=== PATIENT | female | born 1935 | race Hispanic/Latino ===

== ENCOUNTER 2017-10-06 11:08 | Inpatient (IN) | payer MEDICARE, OTHER ==
[2017-10-06 11:11] VITALS: BMI 15.0
[2017-10-06] MEDS ORDERED: Sodium Chloride 0.9% 1,000 ML IV STA ×2 (11:28→11:33)
--- NOTE | 2017-10-06 11:38 | ED PDOC ---
Arrival/HPI - General Chief Complaint: Trauma Time Seen by Provider: 10/06/17 11:13 Historian: Patient - History of Present Illness Narrative History of Present Illness (Text): 10/06/17 11:20 A 82 year old female, whose past medical history includes colon CA, s/p surgery colostomy bag (1999), and Atrial Fibrillation, is brought in from [facility] due to unwitnessed fall. Patient recalls fall but is uncertain as to why it occurred. Patient possibly hit her head, but patient denies any LOC, headache, fever, nausea, vomiting, abdominal pain, chest pain, shortness of breath, cough, rhinorrhea, sore throat, or any other complaints. Also, patient had Chest X-ray completed yesterday and findings revealed left side pneumonia PMD: Dr. Smyth Symptom Onset: Sudden Symptom Course: Unchanged Past Medical History - Provider Review Nursing Documentation Reviewed: Yes - Reproductive Menopause: Yes - Cardiac Hx Cardiac Disorders: No Hx Hypertension: Yes - Pulmonary Hx Respiratory Disorders: No - Neurological Hx Dementia: Yes - HEENT Hx HEENT Disorder: Yes (eyeglasses) Hx Cataracts: Yes Hx Glaucoma: Yes - Renal Hx Renal Disorder: No - Endocrine/Metabolic Hx Endocrine Disorders: No - Hematological/Oncological Hx Cancer: Yes (Colon CA 1999 with colostomy) Hx Chemotherapy: Yes Hx Shingles: Yes - Integumentary Hx Dermatological Disorder: No Other/Comment: laceration left elbow, left upper lip abrasion, bruising to front of face around mouth and chin, abrasion to left knee, redness to right knee presently healed, pt has slight ly reddened buttocks and redness to tip of r great toe - Musculoskeletal/Rheumatological Hx Falls: Yes - Gastrointestinal Hx Colostomy: Yes (since 1999) Other/Comment: buldging noted to abd to top of colostomy - Genitourinary/Gynecological Hx Genitourinary Disorders: No - Psychiatric Hx Psychophysiologic Disorder: No Hx Substance Use: No - Surgical History Other/Comment: COLOSTOMY - Anesthesia Hx Anesthesia: Yes Hx Anesthesia Reactions: No Hx Malignant Hyperthermia: No - Suicidal Assessment Feels Threatened In Home Enviroment: No Family/Social History - Physician Review Nursing Documentation Reviewed: Yes Family/Social History: No Known Family HX Smoking Status: Never Smoked Hx Alcohol Use: No Hx Substance Use: No Allergies/Home Meds Allergies/Adverse Reactions: Allergies No Known Allergies Allergy (Verified 10/06/17 11:19) Home Medications: Home Meds Medication Instructions Recorded Confirmed Acetaminophen [Tylenol (Renal)] 650 mg PO PRN PRN 10/06/17 10/06/17 Prochlorperazine Maleate 10 mg PO PRN PRN 10/06/17 10/06/17 [Compazine] Review of Systems - Physician Review All systems were reviewed & negative as marked: Yes - Review of Systems Constitutional: Other (head trauma). absent: Fevers ENT: absent: Rhinorrhea Respiratory: absent: SOB, Cough Cardiovascular: absent: Chest Pain Gastrointestinal: absent: Abdominal Pain, Nausea, Vomiting Neurological: Other (no LOC). absent: Headache Physical Exam Vital Signs Reviewed: Yes Vital Signs Temp Pulse Resp BP Pulse Ox 10/06/17 14:38 117 H 18 94/46 L 99 10/06/17 13:18 107 H 18 94/45 L 100 10/06/17 12:53 116 H 18 83/54 L 97 10/06/17 12:52 114 H 18 83/54 L 97 10/06/17 12:04 110 H 18 91/43 L 95 10/06/17 11:29 98.0 F 128 H 18 92/53 L 96 Temperature: Afebrile Blood Pressure: Hypotensive Pulse: Tachycardic Respiratory Rate: Normal Appearance: Positive for: Well-Appearing, Non-Toxic, Comfortable Pain Distress: None Mental Status: Positive for: other (Alert and oriented to person, place, and partly to time) - Systems Exam Head: Present: Normocephalic, Swelling (soft tissue swelling to left lateral posterior peritoneal) Pupils: Present: PERRL Conjunctiva: Present: Normal Mouth: Present: Moist Mucous Membranes Pharnyx: Present: Normal. No: ERYTHEMA, EXUDATE Neck: Present: Normal Range of Motion. No: Meningeal Signs, MIDLINE TENDERNESS Respiratory/Chest: Present: Clear to Auscultation, Good Air Exchange. No: Respiratory Distress, Accessory Muscle Use Cardiovascular: Present: Normal S1, S2, Irregular Rhythm, Tachycardic. No: Murmurs Abdomen: Present: Normal Bowel Sounds, Other (colostomy bag). No: Tenderness, Distention, Peritoneal Signs Back: Present: Normal Inspection. No: Midline Tenderness (no cervical midline tenderness) Upper Extremity: Present: Other (left index superficial laceration, lateral side radial nail bent; small skin tear posterior R elbow, joint with FROM and no swelling) Lower Extremity: Present: Normal ROM. No: Edema, CALF TENDERNESS, Swelling Neurological: Present: GCS=15, CN II-XII Intact, Speech Normal Skin: Present: Warm, Dry, Normal Color. No: Rashes Psychiatric: Present: Alert, Oriented x 3, Normal Insight, Normal Concentration Medical Decision Making ED Course and Treatment: 10/06/17 11:25 Impression: 82 year old female sent in from [facility] due to unwitnessed fall. Physical exam shows soft tissue swelling to left lateral posterior peritoneal; left index finger superficial laceration, lateral side radial nail bent; colostomy bag to abdomen. Plan: -- EKG -- Brain CT -- Chest CT -- Left Hand 2nd Digit X-ray -- Elbow X-Ray -- Chest X-ray -- Labs -- Blood Culture -- Urine Culture -- Blood Gas -- Urinalysis -- IV Fluids -- Reassess and disposition Prior Visits: Notes and results from previous visits were reviewed. Patient was last seen in the emergency department on 06/01/2017 for generalized weakness. Patient was admitted. Progress Notes: 10/06/2017 12:[address] IMPRESSION: No evidence of acute intracranial hemorrhage intracranial collection mass effect or midline shift. 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 Mild atrophy and moderate chronic microvascular white matter ischemic disease. Dictator: Dmitriy Weeks MD 10/06/2017 13:[address] IMPRESSION: Foci of airspace consolidation at the left lung lower lobe may represent multifocal pneumonia or atelectasis. The possibility of neoplasm is less likely but not totally excluded. Interval appeareance of approximately 1 cm cavitary lesion at the left lung upper lobe and scattered small nodular opacities since the previous exam. Follow -up [id number] is recommended. Small left plueral effusion. Mild cardio megaly. Mild anuerysmal changes of the ascending aorta and ectatic and tortous aortic arch. Dictator: Dmitriy Weeks MD 10/06/2017 14:11 Chest X-ray IMPRESSION: Heterogenous opacity at the left lower lung associated with small left pelural effusion. Otherwise no interval change. Dictator: Dmitriy Weeks MD 10/06/2017 14:14 Hand X-Ray IMPRESSION: No evidence of acute fracture or dislocation. Arithritic degenerative changes. Dictator: Dmitriy Weeks MD 10/06/2017 14:18 Elbow X-Ray IMPRESSION: No evidence of acute fracture or dislocation. Dictator: Dmitriy Weeks MD 10/06/17 14:33 Patient with noted history. Patient is in afib with RVR with low BP. She is well-appearing with no tachypnea, awake with baseline mental status and no complaints; this is in spite of unstable vitals. Lactic acid is normal. Given BP, there is no room to administer ca-channel simone or beta-simone. Will start digoxin and obtain cardio consult. BNP is >4000 but no CHF on CXR or by history or clinically. She has prerenal dehydration by chemistry, so will continue to hydrate. IV antibiotics started for pneumonia. Also noted on chest CT is the cavitary lesion of uncertain etiology. Will obtain ID consult. She is DNR/DNI and is well-appearing without complaints so is not appropriate for the ICU. Case discussed with Dr. Stanley, covering Dr. Mixon, her half-way attending. - Lab Interpretations Lab Results: 10/06/17 11:30 10/06/17 11:30 Lab Results 10/06/17 11:30: Sodium 135, Chloride 100, Potassium 4.3, Carbon Dioxide 24, Anion Gap 15, BUN 30 H, Creatinine 0.9, Est GFR ( Amer) > 60, Est GFR ( Non-Af Amer) 60, Random Glucose 187 H, Calcium 9.0, Phosphorus 3.2, Magnesium 1.4 L, Total Bilirubin 1.7 H, Direct Bilirubin 0.8 H, AST 49 H, ALT 39, Alkaline Phosphatase 92, Lactate Dehydrogenase 591, Total Creatine Kinase 37, Troponin I < 0.01, NT-Pro-B Natriuret Pep 4050 H, Total Protein 7.0, Albumin 3.6 , Globulin 3.4, Albumin/Globulin Ratio 1.1, Lipase 877 H 10/06/17 11:30: pO2 40, VBG pH 7.40, VBG pCO2 42.0, VBG HCO3 26.0, VBG Total CO2 27.3, VBG O2 Sat (Calc) 77.1 H, VBG Base Excess 1.0, VBG Potassium 4.1, Sodium 134.0, Chloride 100.0, Glucose 193 H, Lactate 1.8, FiO2 21.0, Venous Blood Potassium 4.1 10/06/17 11:30: PT 12.4, INR 1.12 H, APTT 24.9 L 10/06/17 11:30: WBC 9.7 D, RBC 3.72, Hgb 12.0, Hct 35.4 L, MCV 95.2, MCH 32.3, MCHC 33.9, RDW 13.1, Plt Count 156, MPV 10.6, Gran % 86.2 H, Lymph % (Auto) 4.4 L, [place] % (Auto) 9.3 H, Eos % (Auto) 0.0 L, Baso % (Auto) 0.1, Gran # 8.35 H, Lymph # 0.4 L, [place] # 0.9 H, Eos # 0.0, Baso # 0.01, Neutrophils % (Manual) 85 H , Band Neutrophils % 2, Lymphocytes % (Manual) 5 L, Monocytes % (Manual) 8 H, Platelet Evaluation Normal, Anisocytosis (manual) Slight I have reviewed the lab results: Yes - RAD Interpretation Radiology Orders: 10/06/17 11:26 CHEST TWO VIEWS (PA/LAT) [RAD] Stat 10/06/17 11:27 Brain [HEAD W/O CONTRAST] [CT] Stat 10/06/17 11:28 HAND LEFT 2ND DIGIT (FINGER) [RAD] Stat 10/06/17 12:01 ELBOW RIGHT 3 VIEWS ROUTINE [RAD] Stat 10/06/17 12:53 CHEST W/O CONTRAST [CT] Stat - Medication Orders Current Medication Orders: Vancomycin HCl 1 gm/ Sodium (Chloride) 250 mls @ 133.333 mls/hr IV STAT STA PRN Reason: Protocol Stop: 10/06/17 14:44 Discontinued Medications Digoxin (Lanoxin) 0.5 mg IVP STAT STA Stop: 10/06/17 14:08 Sodium Chloride (Sodium Chloride 0.9%) 1,000 mls @ 100 mls/hr IV .Q10H STA Stop: 10/06/17 21:27 Sodium Chloride (Sodium Chloride 0.9%) 1,000 mls @ 1,000 mls/hr IV .Q1H STA Stop: 10/06/17 12:27 Last Admin: 10/06/17 11:46 Dose: 1,000 mls/hr eMAR Start Stop Document 10/06/17 11:46 GMD (Rec: 10/06/17 11:46 GMD [facility] [id number]) Intravenous Solution Start Date 10/06/17 Start Time 11:46 End Date 10/06/17 End time 12:47 Total Infusion Time 61 Cefepime HCl (Maxipime 1gm) 1 gm in 100 mls @ 100 mls/hr IVPB STAT STA PRN Reason: Protocol Stop: 10/06/17 13:51 Last Admin: 10/06/17 13:37 Dose: 100 mls/hr eMAR Start Stop Document 10/06/17 13:37 GMD (Rec: 10/06/17 13:37 GMD [facility] [id number]) Intravenous Solution Start Date 10/06/17 Start Time 13:37 End Date 10/06/17 End time 14:37 Total Infusion Time 60 - Scribe Statement The provider has reviewed the documentation as recorded by the Chris Mehta Provider Scribe Attestation: All medical record entries made by the Millicentibvera were at my direction and personally dictated by me. I have reviewed the chart and agree that the record accurately reflects my personal performance of the history, physical exam, medical decision making, and the department course for this patient. I have also personally directed, reviewed, and agree with the discharge instructions and disposition. Disposition/Present on Arrival - Present on Arrival Any Indicators Present on Arrival: No History of DVT/PE: No History of Uncontrolled Diabetes: No Urinary Catheter: No History of Decub. Ulcer: No History Surgical Site Infection Following: None - Disposition Have Diagnosis and Disposition been Completed?: Yes Diagnosis: Atrial fibrillation with rapid ventricular response, Pneumonia, Hypotension Disposition: HOSPITALIZED Disposition Time: 13:30 Patient Plan: Admission, Telemetry Patient Problems: Current Active Problems Problem Status Onset Atrial fibrillation with rapid ventricular response Acute Hypotension Acute Pneumonia Acute Condition: GUARDED
[2017-10-06 12:05] LABS: BASO # 0.01 K/mm3 (0.0-2.0); BASO % 0.1 % (0.0-3.0); GRAN # 8.35 (1.4-6.5); GRAN % 86.2 % (50.0-68.0); HEMATOCRIT 35.4 % (36.0-48.0); LYMPH # 0.4 (1.2-3.4); LYMPH % 4.4 % (22.0-35.0); MEAN CELL VOLUME 95.2 fl (80.0-105.0); MEAN CORPUSCULAR HEMOGLOBIN 32.3 pg (25.0-35.0); MEAN CORPUSCULAR HGB CONC 33.9 g/dl (31.0-37.0); MEAN PLATELET VOLUME 10.6 fl (7.0-11.0); MONO # 0.9 (0.1-0.6); MONO % 9.3 % (1.0-6.0); PLATELET COUNT 156 10^3/uL (120.0-450.0); RED CELL DISTRIBUTION WIDTH 13.1 % (11.5-14.5); WHITE BLOOD COUNT 9.7 10^3/ul (4.5-11.0)
[2017-10-06 12:21] LABS: ALB/GLOB RATIO 1.1 (1.1-1.8); ALKALINE PHOSPHATASE 92 U/L (38-126); ALT/SGPT 39 U/L (7-56); AST/SGOT 49 U/L (14-36); BILIRUBIN,DIRECT 0.8 mg/dL (0.0-0.4); BILIRUBIN,TOTAL 1.7 mg/dL (0.2-1.3); BLOOD UREA NITROGEN 30 mg/dL (7-21); CARBON DIOXIDE 24 mmol/L (21-33); CHLORIDE 100 mmol/L (98-107); GFR AFRICAN-AMERICAN > 60; GLUCOSE,RANDOM 187 mg/dL (70-110); LIPASE 877 U/L (23-300); MAGNESIUM 1.4 mg/dL (1.7-2.2); PHOSPHOROUS 3.2 mg/dL (2.5-4.5); POTASSIUM 4.3 mmol/L (3.6-5.0); SODIUM 135 mmol/L (132-148)
[2017-10-06 12:30] LABS: INR 1.12 (0.93-1.08); PARTIAL THROMBOPLASTIN TIME 24.9 Seconds (25.1-36.5)
[2017-10-06 12:34] LABS: TROPONIN I < 0.01 ng/mL
--- NOTE | 2017-10-06 12:35 | CT ---
PROCEDURE: CT HEAD WITHOUT CONTRAST. HISTORY: fall; head injury COMPARISON: Comparison is made to the previous study dated 04/19/2016 TECHNIQUE: Axial computed tomography images were obtained through the head/brain without intravenous contrast. Radiation dose: Total exam DLP = 736.81 mGy-cm. This CT exam was performed using one or more of the following dose reduction techniques: Automated exposure control, adjustment of the mA and/or kV according to patient size, and/or use of iterative reconstruction technique. FINDINGS: HEMORRHAGE: No intracranial hemorrhage. BRAIN: Small encephalomalacia noted at the left coronal radiata likely due to small old infarct. Moderate chronic microvascular white matter ischemic changes are again noted. VENTRICLES: Unremarkable. No hydrocephalus. CALVARIUM: Unremarkable. PARANASAL SINUSES: Unremarkable as visualized. No significant inflammatory changes. MASTOID AIR CELLS: Unremarkable as visualized. No inflammatory changes. OTHER FINDINGS: None. IMPRESSION: No evidence of acute intracranial hemorrhage intracranial collection mass effect or midline shift. 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 Mild atrophy and moderate chronic microvascular white matter ischemic disease.
[2017-10-06] MEDS ORDERED: Cefepime 1gm in NS 100ml 1 GM/100 ML BAG IVPB STA (12:52)
--- NOTE | 2017-10-06 13:35 | CT ---
PROCEDURE: CT Chest without contrast HISTORY: L side infiltrate - r/o mass COMPARISON: Comparison is made to the previous study dated 06/08/2015 TECHNIQUE: Contiguous axial images were obtained through the chest without intravenous contrast enhancement. Sagittal and coronal reconstructions were performed. Radiation dose (DLP): 177.38 mGy-cm. This CT exam was performed using one or more of the following dose reduction techniques: Automated exposure control, adjustment of the mA and/or kV according to patient size, and/or use of iterative reconstruction technique. FINDINGS: LUNGS: Foci of airspace consolidation noted at the peripheral aspect of the left lung lower lobe. The differential diagnosis includes multifocal pneumonia. The possibility of neoplasm is less likely. There is thin wall cavitary lesion at the left lung upper lobe measures 9 millimeter. There are small reticular opacities seen also at the left lung upper lobe. Again seen is linear opacity at the medial aspect of the right lobe lung upper lobe likely represents scar tissue. Pleural-based nodule is again noted at the right upper lung. MEDIASTINUM: The thoracic aorta is ectatic and tortuous. 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 The heart is mildly enlarged. Main pulmonary artery is mildly enlarged. No lymphadenopathy. PLEURA: Small left pleural effusion is noted. BONES: No fracture. No destructive lesion. UPPER ABDOMEN: Partially image stomach is mildly dilated. OTHER FINDINGS: None. IMPRESSION: Foci of airspace consolidation at the left lung lower lobe may represent multifocal pneumonia or atelectasis. The possibility of neoplasm is less likely but not totally excluded. Interval appearance of approximately 1 centimeter cavitary lesion at the left lung upper lobe and scattered small nodular opacities since the previous exam. Follow-up reassessment is recommended. Small left pleural effusion. Mild cardiomegaly. 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
[2017-10-06 13:37] LABS: BAND 2 % (0-2); NEUTROPHIL 85 % (50.0-70.0); PLATELET ESTIMATE NORMAL (NORMAL)
[2017-10-06 13:38] LABS: ANISOCYTOSIS SLIGHT
[2017-10-06] MEDS ORDERED: Digoxin 500 mcg/2ml (0.5 mg/2ml) Inj IVP STA ×2 (14:07→14:44)
--- NOTE | 2017-10-06 14:12 | RAD ---
HISTORY: L side pneumonia, fall COMPARISON: Comparison is made to the previous study dated 06/01/2016 TECHNIQUE: Chest PA and lateral FINDINGS: LUNGS: Heterogeneous opacity noted at the left lower lobe PLEURA: Blunting of the left costophrenic angle is noted. CARDIOVASCULAR: Normal. OSSEOUS STRUCTURES: No significant abnormalities. VISUALIZED UPPER ABDOMEN: Normal. OTHER FINDINGS: None. IMPRESSION: Heterogeneous opacity at the left lower lung associated with small left pleural effusion. Otherwise no interval change.
--- NOTE | 2017-10-06 14:15 | RAD ---
PROCEDURE: Left Index finger radiographs. HISTORY: fall; left index finger injury COMPARISON: None. TECHNIQUE: AP radiograph of the left hand, as well as spot oblique and lateral images of index finger were obtained. FINDINGS: LEFT INDEX FINGER: Normal left index finger, without fracture or focal lesion. Remainder of the left hand (as seen on the AP view) demonstrate no acute fracture. JOINTS: Moderate to severe arthritic degenerative changes noted at the carpal/metacarpal joint and distal interphalangeal joint specially at the mid finger. SOFT TISSUES: Normal. OTHER FINDINGS: None. IMPRESSION: No evidence of acute fracture or dislocation. Arthritic degenerative changes.
--- NOTE | 2017-10-06 14:20 | RAD ---
PROCEDURE: Radiographs of the right elbow. HISTORY: fall; R elbow injury COMPARISON: No prior. FINDINGS: BONES: Normal. No fracture. JOINTS: Normal. No osteoarthritis. SOFT TISSUES: Normal. JOINT EFFUSION: None. OTHER FINDINGS: None. IMPRESSION: No evidence of acute fracture or dislocation.
[2017-10-06] MEDS ORDERED: Magnesium Sulfate 2 GM in Sodium Chloride 0.9% 100 ML IVPB STA (14:46)
[2017-10-06] MEDS: Sodium Chloride 0.9% 1,000 ML IV SCH (20:35)
[2017-10-06] MEDS: Cefepime 1gm in NS 100ml 1 GM/100 ML BAG IVPB SCH (21:06)
[2017-10-07] MEDS: Cefepime 1gm in NS 100ml 1 GM/100 ML BAG IVPB SCH ×2 (05:06→13:37)
[2017-10-07 06:23] LABS: BASO # 0.01 K/mm3 (0.0-2.0); BASO % 0.1 % (0.0-3.0); EOS # 0.1 (0.0-0.7); EOS % 1.1 % (1.5-5.0); GRAN # 5.96 (1.4-6.5); GRAN % 85.2 % (50.0-68.0); HEMATOCRIT 33.4 % (36.0-48.0); LYMPH # 0.5 (1.2-3.4); LYMPH % 6.8 % (22.0-35.0); MEAN CELL VOLUME 95.2 fl (80.0-105.0); MEAN CORPUSCULAR HEMOGLOBIN 31.6 pg (25.0-35.0); MEAN CORPUSCULAR HGB CONC 33.2 g/dl (31.0-37.0); MEAN PLATELET VOLUME 10.1 fl (7.0-11.0); MONO # 0.5 (0.1-0.6); MONO % 6.8 % (1.0-6.0); RED CELL DISTRIBUTION WIDTH 12.9 % (11.5-14.5)
[2017-10-07 06:37] LABS: BLOOD UREA NITROGEN 17 mg/dL (7-21); CALCIUM 8.3 mg/dL (8.4-10.5); CARBON DIOXIDE 25 mmol/L (21-33); CHLORIDE 109 mmol/L (98-107); GFR AFRICAN-AMERICAN > 60; GLUCOSE,RANDOM 98 mg/dL (70-110); POTASSIUM 4.4 mmol/L (3.6-5.0); SODIUM 138 mmol/L (132-148)
--- NOTE | 2017-10-07 09:09 | CARD ---
APPROVED REPORT EKG Measurement Heart [id number] <Conclusion> Atrial flutter with Variable conduction and rapid ventricular response with premature ventricular or aberrantly conducted complexes Abnormal ECG
[2017-10-07] MEDS ORDERED: Digoxin 500 mcg/2ml (0.5 mg/2ml) Inj IVP ONE (10:45)
[2017-10-07 10:51] LABS: IRON 13 ug/dL (45-180)
[2017-10-07] MEDS: Azithromycin 250 MG in Sodium Chloride 0.9% 250 ML IVPB SCH (10:55)
[2017-10-07] MEDS: Vancomycin 1gm in NS 250ml 1 GM/250 ML BAG IVPB SCH ×2 (10:56→21:18)
--- NOTE | 2017-10-07 11:31 | HP ---
10/06/2017 HISTORY OF PRESENT ILLNESS: Ms. Santos is an 82-year-old female with history of remote history of colon cancer, diagnosed in 1999. She has surgery done with colostomy bag. She was transferred from [facility] because she felt unwell, she was found on the floor. Denies any history of fall; she does not remember. History of atrial fibrillation with rapid heart rate in the ER. Denies any chest pain. No shortness of breath. CAT scan of the chest showed left upper lobe consolidation, 1 cm cavitary lesion in the left upper lobe. Denies any shortness of breath or cough with expectoration. PAST MEDICAL HISTORY: 1. Colon cancer. 2. Hypertension. 3. Atrial fibrillation. 4. History of shingles. 5. History of chemotherapy. o PAST SURGICAL HISTORY: Hemicolectomy remote. ALLERGIES: NO KNOWN DRUG ALLERGIES. HOME MEDICATIONS: Tylenol 650 mg p.r.n., Compazine p.r.n. REVIEW OF SYSTEMS: As per HPI, 12-point review of systems reviewed and negative. PHYSICAL EXAMINATION GENERAL: Comfortable in bed, in no acute distress. VITAL SIGNS: Temperature 98.7, heart rate 117, respiratory rate 18 per minute, blood pressure 94/46, pulse ox is 99% on room air. HEENT: Pallor positive. NECK: Supple. No lymphadenopathy. CHEST: Air entry present, equal bilateral. No added sounds. CARDIOPULMONARY: S1, S2 normal. No murmur, no gallop. ABDOMEN: Soft, nontender. No hepatosplenomegaly. EXTREMITIES: No edema. Colostomy bag present. NEUROLOGIC: No cranial nerve palsy. Speech normal. SKIN: Warm and dry. No rash. PSYCHIATRIC: Alert, oriented x3. No focal sensory or motor deficit. IMAGING: As per HPI. Chest x-ray, left upper lobe infiltrate, left effusion. X-rays of the hand, elbow did not show any fracture or dislocation. LABORATORY DATA: White count 9.7, hemoglobin 12, hematocrit 35.5, platelet count 156. Sodium 135, potassium 4.3, BUN 30, creatinine 0.9, glucose 187. Neutrophil 85%, lymphocyte 5%, monocyte 8%. ASSESSMENT AND PLAN: 1. Atrial fibrillation with rapid heart rate. She received one dose of digoxin in the ER. We will get Cardiology consultation, Dr. Damico. 2. Tele monitoring. Blood pressure is on the lower side, IV fluids at 80 mL an hour normal saline. Antibiotics, cefepime and Zithromax. She also received one dose of vancomycin in the ER, we will continue vancomycin. Heart healthy diet. We will order CEA to rule out recurrence of colon cancer, although unlikely. CEA resulted in 1.2, which is normal, does not look like recurrence. She has cavity lesion. Interferon test has been ordered. Bilirubin is 1.7, slightly elevated. BNP elevated at 4000. 3. Mild anemia, hemoglobin 11. We will send iron and B12 folate studies. Valerie Stanley MD MTDD
[2017-10-07 12:48] VITALS: PULSE 88
--- NOTE | 2017-10-07 16:58 | CP.PCM.CON ---
History of Present Illness - History of Present Illness History of Present Illness: 82 year old female with PMH of HTN, colon CA S/P surgery, colostomy, chemotherapy and in remission, atrial fibrillation, history of cataracts and glaucoma, history of herpes zoster, dementia was sent in from [facility] because of an apparent fall. She has been having some weakness for the past few days with slight decrease in appetite. She denies fever or chills, has a dry cough but no SOB, no rhinorrhea, no sore throat, no chest pain, no headache or dizziness, no nausea or vomiting, no diarrhea, no dysuria. CXR in the ED is showing left sided pneumonia and CT chest is showing a small cavitary lesion in the left upper lobe. The patient has been living in [place] most of her life and has not been outside of [place] in the past 3 months. Full travel history could not be obtained because of the patient's dementia. Infectious Diseases consult is requested to further evaluate and manage. Review of Systems - Review of Systems All systems: reviewed and no additional remarkable complaints except (as per HPI ) Past Patient History - Past Social History Smoking Status: Never Smoked - CARDIAC Hx Cardiac Disorders: Yes Hx Cardia Arrhythmia: Yes Hx Hypertension: Yes - PULMONARY Hx Respiratory Disorders: No Hx Asthma: No Hx Bronchitis: No Hx Chronic Obstructive Pulmonary Disease (COPD): No Hx Emphysema: No Hx Pneumonia: No - NEUROLOGICAL Hx Neurological Disorder: No - HEENT Hx HEENT Problems: Yes Hx Cataracts: Yes Hx Glaucoma: Yes - RENAL Hx Chronic Kidney Disease: No - ENDOCRINE/METABOLIC Hx Endocrine Disorders: No - HEMATOLOGICAL/ONCOLOGICAL Hx Cancer: Yes Hx Chemotherapy: Yes Hx Shingles: Yes - INTEGUMENTARY Hx Dermatological Problems: No Other/Comment: laceration left elbow, left upper lip abrasion, bruising to front of face around mouth and chin, abrasion to left knee, redness to right knee presently healed, pt has slight ly reddened buttocks and redness to tip of r great toe - MUSCULOSKELETAL/RHEUMATOLOGICAL Hx Musculoskeletal Disorders: Yes Hx Falls: Yes Hx Unsteady Gait: Yes - GASTROINTESTINAL Hx Colostomy: Yes (1999) - GENITOURINARY/GYNECOLOGICAL Hx Genitourinary Disorders: No - PSYCHIATRIC Hx Psychophysiologic Disorder: No Hx Substance Use: No - SURGICAL HISTORY Other/Comment: colostomy 1999 - ANESTHESIA Hx Anesthesia: Yes Hx Anesthesia Reactions: No Hx Malignant Hyperthermia: No Meds Allergies/Adverse Reactions: Allergies Allergy/AdvReac Type Severity Reaction Status Date / Time No Known Allergies Allergy Verified 10/06/17 11:19 - Medications Medications: Current Medications Acetaminophen (Tylenol 325mg Tab) 650 mg PO Q6H PRN PRN Reason: Fever >100.4 F Sodium Chloride (Sodium Chloride 0.9%) 1,000 mls @ 80 mls/hr IV .[id number] KATY Last Admin: 10/06/17 20:35 Dose: 80 mls/hr Cefepime HCl (Maxipime 1gm) 1 gm in 100 mls @ 100 mls/hr IVPB Q8 KATY PRN Reason: Protocol Last Admin: 10/07/17 05:06 Dose: 100 mls/hr Azithromycin 250 mg/ Sodium (Chloride) 250 mls @ 167 mls/hr IVPB DAILY KATY PRN Reason: Protocol Pantoprazole Sodium (Protonix Inj) 40 mg IVP DAILY KATY Physical Exam - Constitutional Appears: Non-toxic, No Acute Distress - Head Exam Head Exam: NORMAL INSPECTION - ENT Exam ENT Exam: Mucous Membranes Moist - Neck Exam Neck exam: Negative for: Lymphadenopathy, Meningismus - Respiratory Exam Respiratory Exam: Decreased Breath Sounds - Cardiovascular Exam Cardiovascular Exam: +S1, +S2 - GI/Abdominal Exam GI & Abdominal Exam: Soft. absent: Tenderness Results - Vital Signs Recent Vital Signs: Last Vital Signs Temp 98.4 F 10/07/17 05:46 Pulse 91 H 10/07/17 05:46 Resp 19 10/07/17 05:46 BP 120/42 L 10/07/17 05:46 Pulse Ox 97 10/07/17 05:46 - Labs Result Diagrams: 10/07/17 05:30 10/07/17 05:30 Labs: Laboratory Results - last 24 hr 10/07/17 10/07/17 05:30 05:30 WBC 7.0 D RBC 3.51 Hgb 11.1 L Hct 33.4 L MCV 95.2 MCH 31.6 MCHC 33.2 RDW 12.9 Plt Count 150 MPV 10.1 Gran % 85.2 H Lymph % (Auto) 6.8 L Harding % (Auto) 6.8 H Eos % (Auto) 1.1 L Baso % (Auto) 0.1 Gran # 5.96 Lymph # 0.5 L Harding # 0.5 Eos # 0.1 Baso # 0.01 Sodium 138 Potassium 4.4 Chloride 109 H Carbon Dioxide 25 Anion Gap 8 L BUN 17 Creatinine 0.7 Est GFR ( Amer) > 60 Est GFR (Non-Af Amer) > 60 Random Glucose 98 Calcium 8.3 L Assessment & Plan - Assessment and Plan (Free Text) Plan: Assessment Left sided healthcare-associated pneumonia with possible gram positive cocci and /or gram negative bacilli left upper lobe cavitary lesion, R/O TB, R/O malignancy HTN colon CA S/P surgery, colostomy, chemotherapy and in remission atrial fibrillation history of cataracts and glaucoma history of herpes zoster dementia Plan Started patient on Vancomycin, Cefepime and Zithromax pending blood, sputum cx keep on airborne isolation for now - get sputum AFB x 3 will monitor clinically discussed with Dr. Jackson
--- NOTE | 2017-10-07 19:47 | CP.PCM.PN ---
Subjective - Date & Time of Evaluation Date of Evaluation: 10/07/17 Time of Evaluation: 11:00 - Subjective Subjective: HISTORY OF PRESENT ILLNESS: Ms. Santos is an 82-year-old female with history of remote history of colon cancer, diagnosed in 1999. She has surgery done with colostomy bag. She was transferred from [facility] because she felt unwell, she was found on the floor. Denies any history of fall; she does not remember. History of atrial fibrillation with rapid heart rate in the ER. Denies any chest pain. No shortness of breath. CAT scan of the chest showed left upper lobe consolidation, 1 cm cavitary lesion in the left upper lobe. cough present. No h/o hemoptysis PAST MEDICAL HISTORY: 1. Colon cancer. 2. Hypertension. 3. Atrial fibrillation. 4. History of shingles. 5. History of chemotherapy. o PAST SURGICAL HISTORY: Hemicolectomy remote. ALLERGIES: NO KNOWN DRUG ALLERGIES. HOME MEDICATIONS: Tylenol 650 mg p.r.n., Compazine p.r.n. REVIEW OF SYSTEMS: As per HPI, 12-point review of systems reviewed and negative. PHYSICAL EXAMINATION GENERAL: Comfortable in bed, in no acute distress. VITAL SIGNS: reviewed. HEENT: Pallor positive. NECK: Supple. No lymphadenopathy. CHEST: Air entry present, equal bilateral. No added sounds. CARDIOPULMONARY: S1, S2 normal. No murmur, no gallop. ABDOMEN: Soft, nontender. No hepatosplenomegaly. EXTREMITIES: No edema. Colostomy bag present. NEUROLOGIC: No cranial nerve palsy. Speech normal. SKIN: Warm and dry. No rash. PSYCHIATRIC: Alert, oriented x3. No focal sensory or motor deficit. IMAGING: As per HPI. Chest x-ray, left upper lobe infiltrate, left effusion. X-rays of the hand, elbow did not show any fracture or dislocation. LABORATORY DATA: reviewed. ASSESSMENT AND PLAN: 1. Atrial fibrillation with rapid heart rate. She received one dose of digoxin in the ER. Cardiology consultation, Dr. Damico appreciated. . 2. ID: left upper lobe cavitary lesion. TB being ruled out. She is on isolation . on Vanco, cefepime, zithro . 3. Colon cancer : in remission. CEA not elevated. colostomy present. abdominal hernia present. 4. HTN : BP controlled on current meds. Valerie Stanley MD Objective - Vital Signs/Intake and Output Vital Signs (last 24 hours): Temp Pulse Resp BP Pulse Ox 99 F 80 18 123/47 L 97 10/07/17 17:43 10/07/17 17:43 10/07/17 17:43 10/07/17 17:43 10/07/17 05:46 Intake and Output: 10/07/17 10/08/17 18:59 06:59 Intake Total 1560 Output Total 200 Balance 1360 - Medications Medications: Current Medications Acetaminophen (Tylenol 325mg Tab) 650 mg PO Q6H PRN PRN Reason: Fever >100.4 F Diltiazem HCl (Cardizem) 30 mg PO QID KATY Stop: 10/07/17 23:59 Last Admin: 10/07/17 18:10 Dose: 30 mg Diltiazem HCl (Cardizem Cd) 120 mg PO DAILY [facility] Sodium Chloride (Sodium Chloride 0.9%) 1,000 mls @ 80 mls/hr IV .[id number] KATY Last Admin: 10/06/17 20:35 Dose: 80 mls/hr Cefepime HCl (Maxipime 1gm) 1 gm in 100 mls @ 100 mls/hr IVPB Q8 KATY PRN Reason: Protocol Last Admin: 10/07/17 13:37 Dose: 100 mls/hr Azithromycin 250 mg/ Sodium (Chloride) 250 mls @ 167 mls/hr IVPB DAILY KATY PRN Reason: Protocol Last Admin: 10/07/17 10:55 Dose: 167 mls/hr Vancomycin HCl (Vancomycin 1gm) 1 gm in 250 mls @ 167 mls/hr IVPB Q12H KATY PRN Reason: Protocol Stop: 10/14/17 07:01 Last Admin: 10/07/17 10:56 Dose: 167 mls/hr Pantoprazole Sodium (Protonix Inj) 40 mg IVP DAILY [facility] Last Admin: 10/07/17 10:54 Dose: 40 mg - Labs Labs: 10/07/17 05:30 10/07/17 05:30 PT 12.4 SECONDS (9.4-12.5) 10/06/17 11:30 INR 1.12 (0.93-1.08) H 10/06/17 11:30 APTT 24.9 Seconds (25.1-36.5) L 10/06/17 11:30
[2017-10-07] MEDS: Sodium Chloride 0.9% 1,000 ML IV SCH (20:00)
[2017-10-08] MEDS: Cefepime 1gm in NS 100ml 1 GM/100 ML BAG IVPB SCH ×3 (00:02→22:13)
[2017-10-08 07:26] LABS: EOS # 0.1 (0.0-0.7); EOS % 0.6 % (1.5-5.0); GRAN # 7.57 (1.4-6.5); GRAN % 87.4 % (50.0-68.0); LYMPH # 0.5 (1.2-3.4); LYMPH % 6.2 % (22.0-35.0); MEAN CELL VOLUME 94.7 fl (80.0-105.0); MEAN CORPUSCULAR HGB CONC 33.8 g/dl (31.0-37.0); MEAN PLATELET VOLUME 9.4 fl (7.0-11.0); MONO # 0.5 (0.1-0.6); MONO % 5.8 % (1.0-6.0); RED CELL DISTRIBUTION WIDTH 13.1 % (11.5-14.5); WHITE BLOOD COUNT 8.7 10^3/ul (4.5-11.0)
[2017-10-08 07:41] LABS: ALB/GLOB RATIO 0.9 (1.1-1.8); ALKALINE PHOSPHATASE 71 U/L (38-126); ALT/SGPT 42 U/L (7-56); AST/SGOT 27 U/L (14-36); BILIRUBIN,TOTAL 0.8 mg/dL (0.2-1.3); BLOOD UREA NITROGEN 11 mg/dL (7-21); CALCIUM 8.1 mg/dL (8.4-10.5); CARBON DIOXIDE 26 mmol/L (21-33); CHLORIDE 106 mmol/L (98-107); CHOLESTEROL 93 mg/dL (130-200); GFR AFRICAN-AMERICAN > 60; GLUCOSE,RANDOM 96 mg/dL (70-110); MAGNESIUM 1.5 mg/dL (1.7-2.2); PHOSPHOROUS 2.7 mg/dL (2.5-4.5); POTASSIUM 4.3 mmol/L (3.6-5.0); SODIUM 136 mmol/L (132-148); TOTAL PROTEIN 5.1 g/dL (5.8-8.3)
[2017-10-08] MEDS: diltiaZEM 120 mg/24 Hours CD Cap PO SCH (09:22)
[2017-10-08] MEDS: Vancomycin 1gm in NS 250ml 1 GM/250 ML BAG IVPB SCH ×2 (09:22→18:04)
[2017-10-08] MEDS: Azithromycin 250 MG in Sodium Chloride 0.9% 250 ML IVPB SCH (10:53)
--- NOTE | 2017-10-08 11:08 | PN ---
DATE: 10/08/2017 SUBJECTIVE: The patient has no complaints of any chest pain. No shortness of breath. No headache. No dizziness. PHYSICAL EXAMINATION: VITAL SIGNS: Temperature is 99.3, pulse of 87, blood pressure 108/55, and respirations are 18. GENERAL: The patient is lying in bed, flat, comfortable. HEENT: No oral lesion. Anicteric sclerae. Moist mucosa. NECK: No JVD, adenopathy, or thyromegaly. CARDIOVASCULAR: S1 and S2, regular. No murmurs, rubs, or gallops. LUNGS: Clear to auscultation bilaterally. No wheeze, rales, or rhonchi. ABDOMEN: Bowel sounds are positive, soft, nontender and nondistended. EXTREMITIES: No cyanosis, clubbing or edema. LABORATORY DATA: Hemoglobin is 10.8 and creatinine is 0.6. ASSESSMENT: 1. Atrial fibrillation, improved. 2. Healthcare-associated pneumonia. 3. Hypertension. 4. Dementia, Alzheimer's type. 5. Hypertension. 6. 1 cm cavitary lesion at the left lung. 7. Osteoarthritis. PLAN: The patient is currently comfortable. She is on Cardizem, her heart rate is under control. She is on cefepime for antibiotics. The patient's blood cultures have been negative. She is on IV fluids with normal saline. I will just continue the fluid at this point. She is on vancomycin and azithromycin for antibiotics. She is on heart-healthy diet. She has a lung lesion, I will ask Dr. Stanley to evaluate the lung lesion. The patient is being followed by Dr. Damico. She is on airborne precautions. She is getting AFBs done. We will discontinue telemetry at this point as her heart rate is under control. En Mixon MD
--- NOTE | 2017-10-08 12:07 | CP.PCM.PN ---
Subjective - Date & Time of Evaluation Date of Evaluation: 10/08/17 Time of Evaluation: 11:10 - Subjective Subjective: Comfortable, no cough currently, no chest pain, no diarrhea, no nausea. Objective - Vital Signs/Intake and Output Vital Signs (last 24 hours): Temp Pulse Resp BP Pulse Ox 99.3 F 97 H 18 100/60 96 10/08/17 06:00 10/08/17 09:22 10/08/17 06:00 10/08/17 09:22 10/08/17 06:00 Intake and Output: 10/08/17 10/08/17 06:59 18:59 Intake Total 120 Output Total 0 Balance 120 - Medications Medications: Current Medications Acetaminophen (Tylenol 325mg Tab) 650 mg PO Q6H PRN PRN Reason: Fever >100.4 F Diltiazem HCl (Cardizem Cd) 120 mg PO DAILY COUNTS INCLUDE 234 BEDS AT THE [facility] Last Admin: 10/08/17 09:22 Dose: 120 mg Cefepime HCl (Maxipime 1gm) 1 gm in 100 mls @ 100 mls/hr IVPB Q8 KATY PRN Reason: Protocol Last Admin: 10/08/17 00:02 Dose: 100 mls/hr Azithromycin 250 mg/ Sodium (Chloride) 250 mls @ 167 mls/hr IVPB DAILY KATY PRN Reason: Protocol Last Admin: 10/07/17 10:55 Dose: 167 mls/hr Vancomycin HCl (Vancomycin 1gm) 1 gm in 250 mls @ 167 mls/hr IVPB Q12H KATY PRN Reason: Protocol Stop: 10/14/17 07:01 Last Admin: 10/08/17 09:22 Dose: 167 mls/hr Pantoprazole Sodium (Protonix Inj) 40 mg IVP DAILY COUNTS INCLUDE 234 BEDS AT THE [facility] Last Admin: 10/08/17 09:22 Dose: 40 mg - Labs Labs: 10/08/17 07:00 10/08/17 07:00 PT 12.4 SECONDS (9.4-12.5) 10/06/17 11:30 INR 1.12 (0.93-1.08) H 10/06/17 11:30 APTT 24.9 Seconds (25.1-36.5) L 10/06/17 11:30 - Constitutional Appears: Non-toxic, Chronically Ill - Head Exam Head Exam: NORMAL INSPECTION - ENT Exam ENT Exam: Mucous Membranes Moist - Neck Exam Neck Exam: absent: Lymphadenopathy, Meningismus - Respiratory Exam Respiratory Exam: Decreased Breath Sounds (at the bases) - Cardiovascular Exam Cardiovascular Exam: +S1, +S2 - GI/Abdominal Exam GI & Abdominal Exam: Soft. absent: Tenderness Assessment and Plan - Assessment and Plan (Free Text) Plan: Assessment Left sided healthcare-associated pneumonia with possible gram positive cocci and /or gram negative bacilli left upper lobe cavitary lesion, R/O TB, R/O malignancy HTN colon CA S/P surgery, colostomy, chemotherapy and in remission atrial fibrillation history of cataracts and glaucoma history of herpes zoster dementia Plan continue Vancomycin, Cefepime and Zithromax day 2 pending final blood, sputum cx keep on airborne isolation for now - follow up sputum AFB x 3 will continue to monitor clinically discussed with Dr. Stanley previously
--- NOTE | 2017-10-08 13:56 | IP.NPCORE ---
Pneumonia Progress Notes - Oxygenation Assessment (REQUIRED) Documented 02: Yes O2 Saturation: 96 Oxygen Delivery Method: Room Air Date: 10/08/17 Time: 00:05 Documented P02: Yes Date:: 10/06/17 Time:: 11:30 - Blood Cultures (REQUIRED) Culture drawn: Yes - Initial Antibiotic Initial Antibiotic given within Four Hours:: Yes - Appropriate Antibiotic Appropriate Antibiotic within 24 hours of Admission:: Yes No change in antibiotics: Yes Infectious Disease Consult: 10/08/17 13:58 dr del castillo/yo - Pneumonia Vaccine Pneumonia Vaccine: Yes (willbe offered at [facility]) - Smoking Cessation Smoking Cessation counseling provided:: No (n/a) Ex-Smoker (has not smoked in the last 12 months): No Current Smoker - smoking cessation education provided: No
--- NOTE | 2017-10-08 15:47 | PN ---
DATE: 10/08/2017 REASON FOR CONSULTATION AND FOLLOWUP: AFib with rapid ventricular, status post fall. SUBJECTIVE: The patient denies any chest pain, shortness or breath, or any palpitations. OBJECTIVE: GENERAL: Sitting at the bedside, not in apparent distress. VITAL SIGNS: Temperature afebrile, heart rate 87, and blood pressure 100/60. HEENT: PERRLA intact. NECK: Supple. No carotid bruits or thyromegaly. CHEST: Clear to auscultation. HEART: S1 and S2 regular. ABDOMEN: Soft. EXTREMITIES: Clubbing and cyanosis negative. LABORATORY DATA: Blood workup as follows; WBC 8.7, hemoglobin 10.8, hematocrit 32, and platelet count 163. INR is 1.12. Chemistry shows sodium 130, potassium 4.3, chloride 106, carbon dioxide 26, anion gap of 8, BUN 11, and creatinine 0.6. Total protein 5.1, albumin 2.4, albumin-globulin ratio of 0.9, and TSH 2.28. First thing, my yesterday's consult is not transcribed, it is not available as of yet. IMPRESSION: An 82-year-old female resident of senior care home who was trying to catch her walker and fell down and brought here. Denies any chest pain, shortness of breath, or any palpitations. History of colostomy, status post right hemicolectomy, status post colostomy, hypertension, chronic atrial fibrillation, and history of chemotherapy. RECOMMENDATIONS: Continue Cardizem , continue one dose , rate is well controlled. If H and H remains stable, we will put low dose of 2.5 b.i.d. of Eliquis, monitor for . In the past, it was mentioned in my note that the patient was back and forth, if the gait remains steady and last time the patient converted to normal sinus as of 04/19/2016, so anticoagulation was not started, but then the patient again readmitted on 06/01/2016, and at that time, the sinus as the patient goes back and forth in AFib and normal sinus. At this time, the patient again admitted with AFib. If the patient remains in AFib, we will consider low dose of Eliquis because of high risk of stroke because of possible AFib. Rate is well controlled now. We will discontinue telemetry. Thank you Dr. Martin for providing us the opportunity in taking care of the patient, Lizz Santos. Gaurang Damico MD
[2017-10-08] MEDS ORDERED: Magnesium Sulfate 2 GM in Sodium Chloride 0.9% 100 ML IVPB ONE (20:53)
--- NOTE | 2017-10-09 04:19 | CON ---
DATE: 10/08/2017 PULMONARY CONSULTATION REFERRING PHYSICIAN: En Mixon MD REASON FOR CONSULTATION: Incidentally found to have a left lower lobe infiltrate and also small cavity in the upper lobe. HISTORY OF PRESENT ILLNESS: This is an 82-year-old female with past medical history significant for hypertension, history of colon cancer requiring surgery, colostomy being on chemotherapy in the remote past, atrial fibrillation, Alzheimer type dementia, history of herpes zoster, been having multiple falls at the [place] [facility], was sent to emergency room when in the routine exam had a chest x-ray which showed left lower lobe infiltrate. CT of the chest done, which shows some left lower lobe chronic looking infiltrate and fibrosis and also left upper lobe small cavity. The patient does not have a cough, no sputum production. No fever. No chills. No vomiting. No hematuria. No diarrhea reported. PAST MEDICAL HISTORY: Hypertension, history of colon cancer requiring colostomy and chemotherapy, Alzheimer type dementia, atrial fibrillation, history of shingles, also had multiple abrasion on admission. ALLERGIES: NONE KNOWN. SOCIAL HISTORY: She is a [facility] resident. No history of smoking or alcohol use. FAMILY HISTORY: No significant cardiopulmonary disease reported. MEDICATIONS: She is on Zithromax 250 mg IV daily, Cardizem 120 mg daily, Eliquis 2.5 mg twice a day, magnesium sulfate 2 g IV given, cefepime 1 g IV q. 8 hour, Protonix 40 mg daily, Tylenol p.r.n. basis, vancomycin 1 g IV q. 12 hours. REVIEW OF SYSTEMS: There is no headache, no rhinitis, not much cough. No sputum production. No hemoptysis, no hematemesis, no hematuria, no diarrhea reported. She is confused. PHYSICAL EXAMINATION: GENERAL: No acute distress. VITAL SIGNS: Temp is 98, heart rate 87, respiratory rate is 20, blood pressure 101/56, pulse ox 96% on room air. HEENT: Moist mucous membranes. No ulcer or thrush noted. NECK: Supple. No JVD. LUNGS: Fair airflow with few rhonchi. HEART: S1 and S2. ABDOMEN: Soft and nontender. No organomegaly. EXTREMITIES: No edema. NEUROLOGICAL: Awake and alert. Follows simple commands, but confused. LABORATORY DATA: Shows hemoglobin 10.8, hematocrit 32.0, WBC 8.7, platelet count is 163. INR 1.1. PTT is 25. VBG show pH 7.40, pCO2 is 42, O2 is 40, probably venous blood. Sodium 136, potassium 4.3, chloride 106, bicarbonate 26, BUN 11, creatinine 0.6, hemoglobin A1c is 5.9, calcium 8.1, phosphorus 2.7, magnesium 1.5, iron is 13, ferritin 282, total bilirubin 0.8, AST is 27, ALT 42, alkaline phosphatase is 71, albumin is 2.4, triglyceride is 188, cholesterol is 93. Carcinoembryonic antigen 1.2. Vitamin B12 of 226. Microbiology, blood culture has been negative. CAT scan shows left lower lobe some infiltrate, also left upper lobe small cavitary lesion. IMPRESSION AND PLAN: Alzheimer type dementia, hypertension, history of colon cancer requiring chemotherapy in the remote past, also hypertension, atrial fibrillation, history of herpes zoster, advanced dementia. The patient was seen by infectious disease and started on broad-spectrum antibiotics covering healthcare-associated organism and atypical. Clinically, the patient does not have much symptoms, does not produce any sputum. I doubt is ?. I will send sedimentation rate and C-reactive protein tomorrow, also procalcitonin; of course, need to follow this closely, not a bad idea as outpatient getting PET scan. Need to follow serial CT scan to assure the stability of these finding. Fall precaution. Thank you. Gaurang Martin MD
[2017-10-09] MEDS: Cefepime 1gm in NS 100ml 1 GM/100 ML BAG IVPB SCH ×3 (05:21→22:00)
[2017-10-09 07:09] LABS: ALB/GLOB RATIO 0.9 (1.1-1.8); ALKALINE PHOSPHATASE 76 U/L (38-126); ALT/SGPT 47 U/L (7-56); AST/SGOT 47 U/L (14-36); BILIRUBIN,TOTAL 0.8 mg/dL (0.2-1.3); BLOOD UREA NITROGEN 11 mg/dL (7-21); CALCIUM 8.2 mg/dL (8.4-10.5); CARBON DIOXIDE 25 mmol/L (21-33); CHLORIDE 108 mmol/L (98-107); GFR AFRICAN-AMERICAN > 60; GLUCOSE,RANDOM 91 mg/dL (70-110); POTASSIUM 4.2 mmol/L (3.6-5.0); SODIUM 136 mmol/L (132-148); TOTAL PROTEIN 5.3 g/dL (5.8-8.3)
[2017-10-09] MEDS: Vancomycin 1gm in NS 250ml 1 GM/250 ML BAG IVPB SCH ×2 (07:56→18:27)
[2017-10-09] MEDS: Azithromycin 250 MG in Sodium Chloride 0.9% 250 ML IVPB SCH (10:28)
[2017-10-09] MEDS: diltiaZEM 120 mg/24 Hours CD Cap PO SCH (10:38)
--- NOTE | 2017-10-09 11:56 | CP.PCM.PN ---
Subjective - Date & Time of Evaluation Date of Evaluation: 10/09/17 Time of Evaluation: 10:45 - Subjective Subjective: Resting comfortably in bed, no fevers, not in distress. Objective - Vital Signs/Intake and Output Vital Signs (last 24 hours): Temp Pulse Resp BP Pulse Ox 98.7 F 100 H 20 112/63 94 L 10/09/17 06:00 10/09/17 06:00 10/09/17 06:00 10/09/17 06:00 10/09/17 06:00 Intake and Output: 10/09/17 10/09/17 06:59 18:59 Intake Total 350 Output Total 200 Balance 150 - Medications Medications: Current Medications Acetaminophen (Tylenol 325mg Tab) 650 mg PO Q6H PRN PRN Reason: Fever >100.4 F Apixaban (Eliquis) 2.5 mg PO BID KATY PRN Reason: Protocol Last Admin: 10/08/17 18:04 Dose: 2.5 mg Diltiazem HCl (Cardizem Cd) 120 mg PO DAILY [facility] Last Admin: 10/08/17 09:22 Dose: 120 mg Cefepime HCl (Maxipime 1gm) 1 gm in 100 mls @ 100 mls/hr IVPB Q8 KATY PRN Reason: Protocol Last Admin: 10/09/17 05:21 Dose: 100 mls/hr Azithromycin 250 mg/ Sodium (Chloride) 250 mls @ 167 mls/hr IVPB DAILY KATY PRN Reason: Protocol Last Admin: 10/08/17 10:53 Dose: 167 mls/hr Vancomycin HCl (Vancomycin 1gm) 1 gm in 250 mls @ 167 mls/hr IVPB Q12H KATY PRN Reason: Protocol Stop: 10/14/17 07:01 Last Admin: 10/09/17 07:56 Dose: 167 mls/hr Pantoprazole Sodium (Protonix Inj) 40 mg IVP DAILY KATY Last Admin: 10/08/17 09:22 Dose: 40 mg - Labs Labs: 10/08/17 07:00 10/09/17 06:30 PT 12.4 SECONDS (9.4-12.5) 10/06/17 11:30 INR 1.12 (0.93-1.08) H 10/06/17 11:30 APTT 24.9 Seconds (25.1-36.5) L 10/06/17 11:30 - Constitutional Appears: Chronically Ill - Head Exam Head Exam: NORMAL INSPECTION - ENT Exam ENT Exam: Mucous Membranes Moist - Neck Exam Neck Exam: absent: Lymphadenopathy, Meningismus - Respiratory Exam Respiratory Exam: Decreased Breath Sounds - Cardiovascular Exam Cardiovascular Exam: +S1, +S2 - GI/Abdominal Exam GI & Abdominal Exam: Soft. absent: Tenderness Assessment and Plan - Assessment and Plan (Free Text) Plan: Assessment Left sided healthcare-associated pneumonia with possible gram positive cocci and /or gram negative bacilli left upper lobe cavitary lesion, R/O TB, R/O malignancy HTN colon CA S/P surgery, colostomy, chemotherapy and in remission atrial fibrillation history of cataracts and glaucoma history of herpes zoster dementia Plan continue Vancomycin, Cefepime and Zithromax day 3 pending final blood, sputum cx keep on airborne isolation for now - follow up sputum AFB x 3 will continue to follow clinically
--- NOTE | 2017-10-09 12:46 | CON ---
DATE: 10/07/2017 CARDIOLOGY CONSULTATION REASON FOR THE CONSULTATION: AFib with rapid ventricular rate, chronic atrial fibrillation, status post fall. BRIEF CLINICAL HISTORY: This is an 82-year-old female with past medical history significant for colon cancer, status post colostomy in 2001, history of paroxysmal atrial fibrillation who [facility], fell down. Denies any loss of consciousness, trying to get hold over the walker to go to the bathroom, but when she tried to catch the walker, she fell down. Denies any chest pain, shortness of breath, or any palpitation. PAST MEDICAL HISTORY: Significant for paroxysmal atrial fibrillation, colon cancer, history of colon resection, status post colostomy in 2001, history of admission after a fall as well. PAST SURGICAL HISTORY: Significant for colon resection, status post colostomy in 2001. PREVIOUS CARDIAC WORKUP: As follows: The patient had echocardiography on last admission on 04/20/2016 that shows ejection fraction 55%, moderate aortic regurgitation, mild aortic stenosis, mild mitral regurgitation, [id number] tricuspid regurgitation, systolic pressure 43. The patient had a bilateral carotid duplex on 04/21/2016 that shows bilateral 20% to 39% ICA stenosis. SOCIAL HISTORY: Denies any smoking. Denies any history of alcohol abuse. CURRENT MEDICATIONS: The patient is taking [facility] acetaminophen, Compazine and suppose to take Cardizem CD 120 mg daily, but apparently somewhere down the line, it was discontinued. In my previous consult other than progress note, it is mentioned the patient is taking Cardizem CD mg daily, baby aspirin, and Xanax. REVIEW OF SYSTEMS: As per HPI. Denies any chest pain, shortness of breath, or any palpitation. PHYSICAL EXAMINATION: VITAL SIGNS: Temperature afebrile, heart rate 69, blood pressure 120/42. HEENT: PERRLA. Extraocular muscles are intact. NECK: Supple. No carotid bruit or thyromegaly. CHEST: Clear to auscultation. HEART: S1 and S2 regular. ABDOMEN: Soft. EXTREMITIES: Clubbing and cyanosis negative. LABORATORY DATA: Blood workup as follows: WBC 7, hemoglobin 11.1, hematocrit 33.4, platelet count 150. Chemistry shows sodium 130, potassium 4.4, chloride of 109, carbon dioxide 25, anion gap of 8, BUN 17, and creatinine 0.7. BNP 4050. IMPRESSION: Status post fall, atrial fibrillation with rapid ventricular rate, chronic atrial fibrillation, mild aortic stenosis preserved left ventricular function with last echo, pulmonary hypertension, significant tricuspid regurgitation, mild aortic regurgitation, mild mitral regurgitation. Mild anemia. Unsteady gait. RECOMMENDATIONS: We will start to give one dose of IV digoxin and then start Cardizem 30 mg q. 8 hours. We will follow with you and if remains stable, change Cardizem to CD 120 mg for morning. We will follow with you. A CT chest consist with a left lower lobe infiltrate possibly consistent with pneumonia. No changes for the CHF noted in the current chest x-ray. We will follow with you. We will give p.r.n. Lasix as needed and also give one dose of digoxin IV to control the heart rate. We will get lipid profile, TSH, and hemoglobin A1c in the morning. Thank you Dr. Stanley for providing me the opportunity in taking care of the patient, . Gaurang Damico MD cc: Valerie Stanley MD
--- NOTE | 2017-10-09 15:34 | PN ---
DATE: REASON FOR CONSULTATION AND FOLLOWUP: Atrial fibrillation with rapid ventricular rate, status post fall. SUBJECTIVE: The patient denies any chest pain, shortness of breath or any palpitation. OBJECTIVE: GENERAL: Lying flat on the bed, not in apparent distress, getting ready for breakfast. VITAL SIGNS: As follows: Temperature afebrile, heart rate 100 and blood pressure 112/63. HEENT: PERRLA. Extraocular muscles intact. NECK: Supple. No carotid bruits or thyromegaly. CHEST: Clear to auscultation. HEART: S1 and S2. Regular. ABDOMEN: Soft. EXTREMITIES: Clubbing and cyanosis are negative. LABORATORY DATA: Blood workup as follows: WBC 8.7, hemoglobin 10.8, hematocrit 32.0, and platelet count 163. Chemistry shows sodium 130, potassium 4.2, chloride 108, carbon dioxide 25, anion gap of 7, BUN 11, and creatinine of 0.7. Total protein of 5.7, albumin 2.5, and albumin-globulin ratio 0.9. IMPRESSION: Protein-calorie malnutrition, moderate, which was not present on admission, atrial fibrillation with rapid rate on admission, and anemia. An 83-[facility] was trying to catch her walker and fell down and brought here. Denies any chest pain, shortness of breath or any palpitations. History of , history of right hemicolectomy, status post colostomy, hypertension, chronic atrial fibrillation, history of chemotherapy, and pneumonia. RECOMMENDATIONS: Increase nutritional support. Continue Cardizem CD 120 mg daily. Continue Eliquis 2.5 mg. Continue broad-spectrum antibiotic. We will follow but discontinue Telemetry. As of now my consult dictate is not available. We will check with the medical record. The patient is . We will follow with you. Gaurang Damico MD
[2017-10-09 17:59] VITALS: RESP 20
--- NOTE | 2017-10-09 22:39 | PN ---
DATE: 10/09/2017 SUBJECTIVE: The patient has no complaints of any chest pain. No shortness of breath. No headaches. PHYSICAL EXAMINATION: VITAL SIGNS: Temperature is 98.5, pulse of 63, blood pressure 101/49, and respirations 20. GENERAL: The patient is lying in bed, flat, comfortable. HEENT: No oral lesion. Anicteric sclerae. Moist mucosa. NECK: No JVD, adenopathy, or thyromegaly. CARDIOVASCULAR: S1 and S2, regular. No murmurs, rubs, or gallops. LUNGS: Clear to auscultation bilaterally. No wheeze, rales, or rhonchi. ABDOMEN: Bowel sounds are positive, soft, nontender and nondistended. EXTREMITIES: No cyanosis, clubbing or edema. ASSESSMENT: 1. Atrial fibrillation, improved. 2. Healthcare-associated pneumonia. 3. Hypertension. 4. Dementia, Alzheimer's type. 5. A 1 cm cavitary lesion if the left lung. 6. Osteoarthritis. 7. Do not resuscitate/do not intubate. PLAN: The patient is currently comfortable. She is currently on Cardizem. She is going to continue with Eliquis for her anticoagulation. The patient is receiving IV antibiotics. She is getting AFBs to rule out TB. She is on airborne isolation. The patient is receiving cefepime for antibiotics. She is on vancomycin. She is on Zithromax. I appreciate input of the consultants. I did read their notes. She has blood cultures that have been negative. The patient's QuantiFERON is negative. En Mixon MD
--- NOTE | 2017-10-09 23:05 | PN ---
PULMONARY PROGRESS NOTE DATE: 10/09/2017 REFERRING PHYSICIAN: nE Mixon MD. SUBJECTIVE: She is lying in the bed. Head at 45 degree, watching TV, in no acute distress. No cough. No sputum production. No nausea, vomiting, or diarrhea. No leg pain or leg swelling. OBJECTIVE: GENERAL: In no acute distress. VITAL SIGNS: Temperature 98, heart rate 63, respiratory rate is 20, blood pressure 101/49, pulse 94% on room air. HEENT: Moist mucous membrane. Crowded airway. NECK: Supple. No JVD. LUNGS: Has a few scattered rhonchi. HEART: S1 and S2. ABDOMEN: Soft, nontender. No organomegaly. EXTREMITIES: There is no edema. NEUROLOGICAL: Awake and alert. Follow simple commands, but confused. MEDICATIONS: She is on Zithromax 250 mg daily, Cardizem CD 120 mg daily, Eliquis 2.5 mg twice a day, cefepime 1 g IV q. 8 hours, Protonix 40 mg daily, Tylenol p.r.n. basis, vancomycin 1 g IV q. 12 hour. LABORATORY DATA: Reviewed and shows sed rate is 95, sodium 136, potassium 4.2, chloride 109, bicarbonate 25, BUN 11, creatinine 0.7, calcium 8.2. AST 47, ALT 47, alkaline phosphatase is 76, albumin is 2.5, procalcitonin is 0.38, TSH is 2.28. IMPRESSION AND PLAN: Alzheimer type dementia, hypertension, colon cancer, requiring chemotherapy in the remote past, hypertension, atrial fibrillation, history of herpetic zoster infection, advanced dementia. Pulmonary point of view, she is doing okay. There is no cough, no sputum production. No fever. There is no specimen available for tuberculosis, quantitative tuberculosis gold test is seen, keep head at 45 degree. The patient is DO NOT RESUSCITATE and DO NOT INTUBATE. Continue conservative treatment. Not a bad idea to get PET scan upon discharge as outpatient to see if any of these lesions lights up in the left lung, being follow Infectious Diseases. Thank you and we will follow with you. Gaurang Martin MD
[2017-10-10] MEDS: Cefepime 1gm in NS 100ml 1 GM/100 ML BAG IVPB SCH (06:03)
[2017-10-10 07:54] LABS: BASO # 0.01 K/mm3 (0.0-2.0); BASO % 0.1 % (0.0-3.0); EOS # 0.1 (0.0-0.7); EOS % 0.8 % (1.5-5.0); GRAN # 6.34 (1.4-6.5); GRAN % 85.4 % (50.0-68.0); HEMATOCRIT 33.2 % (36.0-48.0); LYMPH # 0.5 (1.2-3.4); MEAN CELL VOLUME 94.9 fl (80.0-105.0); MEAN CORPUSCULAR HGB CONC 33.7 g/dl (31.0-37.0); MEAN PLATELET VOLUME 9.5 fl (7.0-11.0); MONO # 0.5 (0.1-0.6); MONO % 6.7 % (1.0-6.0); RED CELL DISTRIBUTION WIDTH 13.3 % (11.5-14.5); WHITE BLOOD COUNT 7.4 10^3/ul (4.5-11.0)
[2017-10-10 08:06] LABS: ALKALINE PHOSPHATASE 76 U/L (38-126); ALT/SGPT 59 U/L (7-56); AST/SGOT 41 U/L (14-36); BILIRUBIN,TOTAL 0.7 mg/dL (0.2-1.3); BLOOD UREA NITROGEN 13 mg/dL (7-21); CALCIUM 8.5 mg/dL (8.4-10.5); CARBON DIOXIDE 26 mmol/L (21-33); CHLORIDE 105 mmol/L (98-107); GFR AFRICAN-AMERICAN > 60; GLUCOSE,RANDOM 96 mg/dL (70-110); MAGNESIUM 1.7 mg/dL (1.7-2.2); PHOSPHOROUS 3.1 mg/dL (2.5-4.5); POTASSIUM 4.3 mmol/L (3.6-5.0); SODIUM 136 mmol/L (132-148); TOTAL PROTEIN 5.5 g/dL (5.8-8.3)
[2017-10-10 08:30] VITALS: BP 108/56; PULSE 87; TEMP 98.7; O2SAT 98
[2017-10-10] MEDS ORDERED: Amoxicillin-Clav 500-125 mg Tab PO SCH (10:00)
[2017-10-10 10:28] LABS: ALB/GLOB RATIO 0.9 (1.1-1.8)
[2017-10-10] MEDS: diltiaZEM 120 mg/24 Hours CD Cap PO SCH (11:00)
--- NOTE | 2017-10-10 13:32 | CP.PCM.PN ---
Subjective - Date & Time of Evaluation Date of Evaluation: 10/10/17 Time of Evaluation: 11:45 - Subjective Subjective: Comfortable, no fevers, not in distress, no cough, no SOB at rest. Objective - Vital Signs/Intake and Output Vital Signs (last 24 hours): Temp Pulse Resp BP Pulse Ox 98.7 F 87 20 108/56 L 98 10/10/17 08:29 10/10/17 08:29 10/10/17 08:29 10/10/17 08:29 10/10/17 08:29 Intake and Output: 10/10/17 10/10/17 06:59 18:59 Intake Total 440 Output Total 450 Balance -10 - Medications Medications: Current Medications Acetaminophen (Tylenol 325mg Tab) 650 mg PO Q6H PRN PRN Reason: Fever >100.4 F Amoxicillin/Clavulanate Potassium (Augmentin 500 Mg-125 Mg Tab) 1 tab PO Q12 KATY PRN Reason: Protocol Apixaban (Eliquis) 2.5 mg PO BID KATY PRN Reason: Protocol Last Admin: 10/09/17 18:34 Dose: 2.5 mg Diltiazem HCl (Cardizem Cd) 120 mg PO DAILY [facility] Last Admin: 10/09/17 10:38 Dose: 120 mg Doxycycline Hyclate (Doryx) 100 mg PO Q12 KATY PRN Reason: Protocol - Labs Labs: 10/10/17 07:30 10/10/17 07:30 PT 12.4 SECONDS (9.4-12.5) 10/06/17 11:30 INR 1.12 (0.93-1.08) H 10/06/17 11:30 APTT 24.9 Seconds (25.1-36.5) L 10/06/17 11:30 - Constitutional Appears: Non-toxic, Chronically Ill - Head Exam Head Exam: NORMAL INSPECTION - ENT Exam ENT Exam: Mucous Membranes Moist - Neck Exam Neck Exam: absent: Lymphadenopathy, Meningismus - Respiratory Exam Respiratory Exam: Decreased Breath Sounds - Cardiovascular Exam Cardiovascular Exam: +S1, +S2 - GI/Abdominal Exam GI & Abdominal Exam: Soft. absent: Tenderness Assessment and Plan - Assessment and Plan (Free Text) Plan: Assessment Left sided healthcare-associated pneumonia left upper lobe cavitary lesion, R/O malignancy HTN colon CA S/P surgery, colostomy, chemotherapy and in remission atrial fibrillation history of cataracts and glaucoma history of herpes zoster dementia Plan switched Vancomycin, Cefepime and Zithromax to PO Augmentin - discussed with Dr. Pires doubt TB - quantiferon TB test is negative, no cough or sputum production discussed with Dr. Martin - observe cavitary lesion
--- NOTE | 2017-10-10 14:15 | DS ---
HISTORY OF PRESENT ILLNESS: The patient has no complaints of any chest pain or shortness of breath. She is feeling better. She initially was admitted to the hospital because of a hospital-acquired pneumonia from [facility]. The patient has improvement in her symptoms. She had concerns about TB and AFB is ordered. She was not able to give sputum for AFB collection. The patient has QuantiFERON that is negative. I spoke with Dr. Hi from Infectious Disease and I will discontinue isolation. The patient also has a lesion in her lung and will need followup of the issue that she has no manufacturing storeperson for which to her help make decisions. She initially had been sent to [facility] for care, but was never picked up. She has no family that visits. No one answers phone. Now, she complains of no headaches or dizziness. No nausea or vomiting. PHYSICAL EXAMINATION: VITAL SIGNS: She has a temperature of 98.5, pulse of 63, blood pressure is 101/49, respirations 20, O2 saturation 94%. Height is 5 feet 4. Weight is 87 pounds. BMI is 15. GENERAL: The patient lying in bed, uncomfortable, and in no acute distress. HEENT: Atraumatic and normocephalic. Anicteric sclerae. Moist mucosa. [place] conjunctivae. No oral lesions. NECK: No JVD, anterior and posterior adenopathy, thyromegaly, or bruits. CARDIOVASCULAR: S1 and S2 regular. No murmur, rubs, or gallop. LUNGS: Clear to auscultation bilaterally. No wheezes, rales, or rhonchi. ABDOMEN: Bowel sounds are positive. Soft, nontender and nondistended. No hepatosplenomegaly. No rebound and no guarding. EXTREMITIES: No cyanosis, clubbing, or edema. NEUROLOGIC: No facial asymmetry. Tongue is midline. No uvula deviation. Power is 5/5 upper extremity and lower extremity. Sensation intact in upper extremity and lower extremity. PSYCHIATRIC: She is awake, alert and oriented x3. No anxiety or depression. She has normal affect. GENITOURINARY: No CVA tenderness. VASCULAR: 2+ pulses in the carotid pulses and pedal pulses. SKIN: No erythema or nodules. SPINE: Shows normal curvature. EXTREMITIES: No Cyanosis and clubbing, no edema. ASSESSMENT: 1. Atrial fibrillation, improved, on Eliquis. 2. Healthcare-associated pneumonia, improved. 3. Hypertension. 4. Dementia, Alzheimer's type. 5. A 1 cm cavitary lesion in the left lung. 6. Osteoarthritis. 7. Do not resuscitate/do not intubate. PLAN: The patient is currently comfortable. Her heart rate has been controlled. She is on Cardizem for her atrial fibrillation. She has also been placed on Eliquis for her anticoagulation. The patient is on Protonix. I will discontinue the patient's Protonix. She is on vancomycin and azithromycin. I did speak to Dr. Hi and the patient can have antibiotics changed over to doxycycline and Augmentin so we will discharge the patient back to [facility] today. CONDITION: Stable. ACTIVITIES: Increase as tolerated. En Mixon MD
--- NOTE | 2017-10-11 11:22 | PN ---
DATE: 10/10/2017 PULMONARY PROGRESS NOTE REFERRING PHYSICIAN: En Serrano MD SUBJECTIVE: The patient is lying in the bed, heat at 45 degrees, follows simple commands, but totally confused. No cough. No sputum production. No nausea, vomiting or diarrhea. No leg pain or leg swelling. OBJECTIVE: GENERAL: In no acute distress. VITAL SIGNS: Temperature 98, heart rate 87, respiratory rate is 20, blood pressure is 108/56, pulse ox 98% on room air. HEENT: Moist mucous membranes. Small oral cavity. NECK: Supple. No JVD. LUNGS: Has a fair airflow with few rhonchi. HEART: S1 and S2. ABDOMEN: Soft and nontender. No organomegaly. EXTREMITIES: No edema. NEUROLOGIC: Awake and alert. Occasionally following inconsistently simple commands, but confused. MEDICATIONS: She is on Augmentin 500/125 one tablet twice a day, Cardizem CD 120 mg daily, doxycycline 100 mg twice a day, Eliquis 2.5 mg twice a day, and Tylenol p.r.n. basis. LABORATORY DATA: Shows hemoglobin 11.2, hematocrit 32.2, WBC 7.4, and platelet count is 235. Sodium 136, potassium 4.3, chloride 105, bicarbonate 26, BUN is 13, creatinine 0.7, glucose 96, calcium is 8.5, magnesium is 1.7. AST 41, ALT 59, alkaline phosphatase is 76, albumin is 2.6, procalcitonin 0.38, and TSH is 2.28. Microbiology: Blood cultures has been negative. IMPRESSION AND PLAN: Alzheimer-type dementia, hypertension, history of colon cancer, on chemotherapy, hypertension, atrial fibrillation, history of herpetic zoster rash, has left lower lobe some chronic looking infiltrate and small cavity in the left upper lobe. Clinically, no active disease. No cough. No sputum production. No fever. Has a sed rate high probably related to arthritis. Case discussed with Infectious Disease. She agrees with discontinuing isolation. The patient is DNR and DNI. If want to be aggressive, she may need followup CT to assure stability of these findings. We will suggest supportive care. Thank you and we will follow with you. Gaurang Martin MD
--- NOTE | 2017-10-11 14:19 | PN ---
DATE: 10/10/2017 LOCATION: The patient is in room 576, bed 1. REASON FOR CONSULTATION AND FOLLOWUP: Atrial fibrillation with rapid ventricular rate status post fall. SUBJECTIVE: The patient is sitting in chair without any chest pain, shortness of breath or palpitation. PHYSICAL EXAMINATION: VITAL SIGNS: Blood pressure 108/56, respirations 20, .pulse 87, temperature 98.7. HEENT: Head is normocephalic. Eyes, pupils are normal. Conjunctivae are normal. NECK: JVP low. Carotid equal. THORAX: AP diameter normal. LUNGS: No significant rales. CARDIOVASCULAR S1 and S2. ABDOMEN: Soft. No tenderness. No organomegaly. Bowel sounds normal. EXTREMITIES: No clubbing. No cyanosis. LABORATORY DATA: WBC 7.4, hemoglobin 11.2, hematocrit 33.2 and platelets 235. Sodium 136, potassium 4.3, BUN 13, creatinine 0.7, AST 41, and ALT 59. Total troponin 5.5, albumin 2.6. DIAGNOSES: Atrial fibrillation, chronic, at the time of admission rapid rate; anemia; protein-calorie malnutrition; hypertension; history of right hemicolectomy, status post colostomy, and history of chemotherapy. PLAN: To continue Cardizem CD 120 mg p.o daily, doxycycline 100 mg q. 12 hours, Eliquis 2.5 b.i.d. The patient's heart rate is stable. We will continue present therapy. We will follow with you. Gaurang Irvin MD
== END 2017-10-10 14:39 | DRG 308 ==
LOC: ED 11:08 → ERH 14:09 → UNDOADMIN 14:25 → ERH 14:42 → 2RSO 16:03 → 5RSO 10-09 17:19
PROVIDERS: ADMIT Internal Medicine Medical Oncology; ATTEND Internal Medicine Nephrology
DX: I48.0 Paroxysmal atrial fibrillation (principal); J18.9 Pneumonia, unspecified organism; E44.0 Moderate protein-calorie malnutrition; Z68.1 Body mass index [BMI] 19.9 or less, adult; D64.9 Anemia, unspecified; S51.012A Laceration without foreign body of left elbow, initial encounter; S00.511A Abrasion of lip, initial encounter; S80.212A Abrasion, left knee, initial encounter; I10 Essential (primary) hypertension; I08.3 Combined rheumatic disorders of mitral, aortic and tricuspid valves; G30.9 Alzheimer's disease, unspecified; F02.80 Dementia in other diseases classified elsewhere, unspecified severity, without behavioral disturbance, psychotic disturbance, mood disturbance, and anxiety; I27.20 Pulmonary hypertension, unspecified; R91.1 Solitary pulmonary nodule; M19.90 Unspecified osteoarthritis, unspecified site; H40.9 Unspecified glaucoma; H26.9 Unspecified cataract; I48.2 Chronic atrial fibrillation; Z66 Do not resuscitate; Y95 Nosocomial condition; R26.81 Unsteadiness on feet; W19.XXXA Unspecified fall, initial encounter; Y92.129 Unspecified place in nursing home as the place of occurrence of the external cause; Z85.038 Personal history of other malignant neoplasm of large intestine; Z93.3 Colostomy status; Z92.21 Personal history of antineoplastic chemotherapy; Z86.19 Personal history of other infectious and parasitic diseases

== ENCOUNTER 2017-10-31 16:38 | Inpatient (IN) | payer MEDICARE, OTHER ==
[2017-10-31 16:39] VITALS: PULSE 88
--- NOTE | 2017-10-31 17:08 | ED PDOC ---
Arrival/HPI - General Chief Complaint: Abdominal Pain Time Seen by Provider: 10/31/17 16:41 Historian: Patient, Detention - History of Present Illness Narrative History of Present Illness (Text): 10/31/17 17:04 A 82 year old female sent into the emergency department from [facility] for decrease output from colostomy bag since 03:00 this morning. Patient denies any pain or discomfort at this time. History limited due to patients dementia. Time/Duration: Other (03:00 this morning) Symptom Course: Unchanged Quality: Other Context: Home ([facility]) Past Medical History - Provider Review Nursing Documentation Reviewed: Yes - Infectious Disease Hx of Infectious Diseases: None - Reproductive Menopause: Yes - Cardiac Hx Cardiac Disorders: Yes Hx Atrial Fibrillation: Yes Hx Cardiac Arrhythmia: Yes Hx Hypertension: Yes - Pulmonary Hx Respiratory Disorders: No Hx Asthma: No Hx Bronchitis: No Hx Chronic Obstructive Pulmonary Disease (COPD): No Hx Emphysema: No Hx Pneumonia: No - Neurological Hx Neurological Disorder: Yes Hx Alzheimer's Disease: Yes Hx Dementia: Yes - HEENT Hx HEENT Disorder: Yes Hx Cataracts: Yes Hx Glaucoma: Yes - Renal Hx Renal Disorder: No - Endocrine/Metabolic Hx Endocrine Disorders: No - Hematological/Oncological Hx Cancer: Yes Hx Chemotherapy: Yes Hx Shingles: Yes - Integumentary Hx Dermatological Disorder: No - Musculoskeletal/Rheumatological Hx Musculoskeletal Disorders: Yes Hx Falls: Yes Hx Unsteady Gait: Yes - Gastrointestinal Hx Colostomy: Yes (1999) - Genitourinary/Gynecological Hx Genitourinary Disorders: No - Psychiatric Hx Psychophysiologic Disorder: No Hx Substance Use: No - Surgical History Other/Comment: colostomy 1999 - Anesthesia Hx Anesthesia: Yes Hx Anesthesia Reactions: No Hx Malignant Hyperthermia: No - Suicidal Assessment Feels Threatened In Home Enviroment: No Family/Social History - Physician Review Nursing Documentation Reviewed: Yes Family/Social History: No Known Family HX Smoking Status: Never Smoked Hx Alcohol Use: No Hx Substance Use: No Allergies/Home Meds Allergies/Adverse Reactions: Allergies No Known Allergies Allergy (Verified 10/31/17 16:46) Home Medications: Home Meds Medication Instructions Recorded Confirmed Acetaminophen [Tylenol (Renal)] 650 mg PO PRN PRN 10/06/17 10/31/17 Rivaroxaban [Xarelto] 20 mg PO DAILY 10/31/17 10/31/17 [id number] [Cardizem] 120 mg PO DAILY 10/31/17 10/31/17 Review of Systems - Review of Systems Systems not reviewed;Unavailable: Dementia Physical Exam Vital Signs Reviewed: Yes Vital Signs Temp Pulse Resp BP Pulse Ox 10/31/17 21:11 62 18 115/56 L 98 10/31/17 18:39 69 18 115/58 L 100 10/31/17 16:52 97.8 F 72 18 117/56 L 100 Temperature: Afebrile Blood Pressure: Hypotensive Pulse: Regular Respiratory Rate: Normal Appearance: Positive for: Well-Appearing, Non-Toxic, Comfortable Pain Distress: None - Systems Exam Head: Present: Atraumatic, Normocephalic Pupils: Present: PERRL Extroacular Muscles: Present: EOMI Conjunctiva: Present: Normal Mouth: Present: Moist Mucous Membranes Neck: Present: Normal Range of Motion Respiratory/Chest: Present: Clear to Auscultation, Good Air Exchange. No: Respiratory Distress, Accessory Muscle Use Cardiovascular: Present: Regular Rate and Rhythm, Normal S1, S2. No: Murmurs Abdomen: Present: Tenderness (Mildly diffuse tenderness to palpation), Distention, Other (tympanic abdomen, colostomy bag full of gas). No: Normal Bowel Sounds (bowel sounds diminished), Peritoneal Signs Back: Present: Normal Inspection Upper Extremity: Present: Normal Inspection. No: Cyanosis, Edema Lower Extremity: Present: Normal Inspection. No: Edema Neurological: Present: GCS=15, CN II-XII Intact, Speech Normal Skin: Present: Warm, Dry, Normal Color. No: Rashes Psychiatric: Present: Alert, Oriented x 3, Normal Insight, Normal Concentration Medical Decision Making ED Course and Treatment: Report Date : 10/31/2017 18:06:42 Procedure: Chest xray Dictator : Teodora Tucker MD IMPRESSION: No active pulmonary disease. COPD. Corie Lazaro who will admit- req consult from Dr Aveyr Varela who will see as consult Corie lozano surgical res who saw the pt in the ED - Lab Interpretations Lab Results: 10/31/17 17:30 10/31/17 17:30 Lab Results 10/31/17 17:30: Sodium 138, Potassium 4.5, Chloride 100, Carbon Dioxide 31, Anion Gap 12, BUN 23 H, Creatinine 0.9, Est GFR ( Amer) > 60, Est GFR ( Non-Af Amer) 60, Random Glucose 95, Calcium 9.2, Total Bilirubin 0.5, AST 30, ALT 33, Alkaline Phosphatase 95, Total Protein 6.9, Albumin 3.7, Globulin 3.1, Albumin/Globulin Ratio 1.2, Lipase 614 H 10/31/17 17:30: WBC 4.3 L D, RBC 3.79, Hgb 12.1, Hct 37.5, MCV 98.9 D, MCH 31.9 , MCHC 32.3, RDW 14.1, Plt Count 182, MPV 9.4, Gran % 67.5, Lymph % (Auto) 18.3 L, [place] % (Auto) 12.3 H, Eos % (Auto) 1.4 L, Baso % (Auto) 0.5, Gran # 2.91, Lymph # 0.8 L, [place] # 0.5, Eos # 0.1, Baso # 0.02 - RAD Interpretation Radiology Orders: 10/31/17 17:01 ABD & PELVIS W/O PO OR IV CONT [CT] Stat 10/31/17 17:02 CHEST PORTABLE [RAD] Stat - Medication Orders Current Medication Orders: Famotidine (Pepcid) 20 mg IVP DAILY [facility] Last Admin: 11/02/17 09:36 Dose: 20 mg IVP Administration Document 11/02/17 09:36 [facility] [place]Rec: 11/02/17 09:37 [facility]-[id number]) Charges for Administration # of IVP Administrations 1 Sodium Chloride (Sodium Chloride 0.9%) 1,000 mls @ 100 mls/hr IV .Q10H [facility] Last Admin: 11/01/17 21:58 Dose: 100 mls/hr eMAR Start Stop Document 11/01/17 21:58 PCO (Rec: 11/01/17 21:59 PCO [id number]) Intravenous Solution Start Date 11/01/17 Start Time 21:58 End Date 11/02/17 End time 08:00 Total Infusion Time 602 Ondansetron HCl (Zofran Inj) 4 mg IVP Q4H PRN PRN Reason: Nausea/Vomiting - Scribe Statement The provider has reviewed the documentation as recorded by the Chris Moon Provider Scribe Attestation: All medical record entries made by the Chris were at my direction and personally dictated by me. I have reviewed the chart and agree that the record accurately reflects my personal performance of the history, physical exam, medical decision making, and the department course for this patient. I have also personally directed, reviewed, and agree with the discharge instructions and disposition. Disposition/Present on Arrival - Present on Arrival Any Indicators Present on Arrival: No History of DVT/PE: No History of Uncontrolled Diabetes: No Urinary Catheter: No History of Decub. Ulcer: No History Surgical Site Infection Following: None - Disposition Have Diagnosis and Disposition been Completed?: Yes Diagnosis: SBO (small bowel obstruction) Disposition: HOSPITALIZED Disposition Time: 19:26 Condition: GUARDED
[2017-10-31] MEDS: Sodium Chloride 0.9% 1,000 ML IV SCH (17:34)
[2017-10-31 17:42] LABS: BASO # 0.02 K/mm3 (0.0-2.0); BASO % 0.5 % (0.0-3.0); EOS # 0.1 (0.0-0.7); EOS % 1.4 % (1.5-5.0); GRAN # 2.91 (1.4-6.5); GRAN % 67.5 % (50.0-68.0); HEMATOCRIT 37.5 % (36.0-48.0); LYMPH # 0.8 (1.2-3.4); LYMPH % 18.3 % (22.0-35.0); MEAN CELL VOLUME 98.9 fl (80.0-105.0); MEAN CORPUSCULAR HEMOGLOBIN 31.9 pg (25.0-35.0); MEAN CORPUSCULAR HGB CONC 32.3 g/dl (31.0-37.0); MEAN PLATELET VOLUME 9.4 fl (7.0-11.0); MONO # 0.5 (0.1-0.6); MONO % 12.3 % (1.0-6.0); RED CELL DISTRIBUTION WIDTH 14.1 % (11.5-14.5); WHITE BLOOD COUNT 4.3 10^3/ul (4.5-11.0)
--- NOTE | 2017-10-31 18:08 | RAD ---
HISTORY: preop COMPARISON: 10/06/2017 FINDINGS: LUNGS: The lungs are hyperinflated and there is peribronchial thickening with chronic changes in both lungs. No focal consolidation. PLEURA: No significant pleural effusion identified, no pneumothorax apparent. CARDIOVASCULAR: Normal. OSSEOUS STRUCTURES: No significant abnormalities. VISUALIZED UPPER ABDOMEN: Normal. OTHER FINDINGS: None. IMPRESSION: No active pulmonary disease. COPD.
[2017-10-31 18:26] LABS: ALB/GLOB RATIO 1.2 (1.1-1.8); ALKALINE PHOSPHATASE 95 U/L (38-126); ALT/SGPT 33 U/L (7-56); AST/SGOT 30 U/L (14-36); BILIRUBIN,TOTAL 0.5 mg/dL (0.2-1.3); BLOOD UREA NITROGEN 23 mg/dL (7-21); CALCIUM 9.2 mg/dL (8.4-10.5); CARBON DIOXIDE 31 mmol/L (21-33); CHLORIDE 100 mmol/L (98-107); GFR AFRICAN-AMERICAN > 60; GLUCOSE,RANDOM 95 mg/dL (70-110); LIPASE 614 U/L (23-300); POTASSIUM 4.5 mmol/L (3.6-5.0); SODIUM 138 mmol/L (132-148); TOTAL PROTEIN 6.9 g/dL (5.8-8.3)
--- NOTE | 2017-10-31 19:37 | CARD ---
APPROVED REPORT EKG Measurement Heart [id number] MD [id number] <Conclusion> Normal sinus rhythm Normal ECG
--- NOTE | 2017-10-31 20:03 | CT ---
EXAM: CT Abdomen and Pelvis Without Intravenous Contrast EXAM DATE/TIME: 10/31/2017 5:01 PM CLINICAL HISTORY: 82 years old, female; Pain; Abdominal pain; Other: Abd distenstion TECHNIQUE: Axial computed tomography images of the abdomen and pelvis without intravenous contrast. All CT scans at this facility use one or more dose reduction techniques, viz.: automated exposure control; ma/kV adjustment per patient size (including targeted exams where dose is matched to indication; i.e. head); or iterative reconstruction technique. MIP reconstructed images were created and reviewed. Coronal and sagittal reformatted images were created and reviewed. COMPARISON: No relevant prior studies available. FINDINGS: LOWER THORAX: Subpleural scarring in the left lung base. ABDOMEN: LIVER: No acute abnormality of the liver identified. GALLBLADDER AND BILE DUCTS: Large gallstone, located in the gallbladder fundus. No CT evidence of acute cholecystitis. PANCREAS: No CT evidence of acute pancreatitis. SPLEEN: No acute abnormality of the spleen identified. ADRENALS: No acute abnormality of the adrenal glands identified. KIDNEYS AND URETERS: No acute abnormality of the kidneys seen. STOMACH AND BOWEL: The bowel is overall suboptimally evaluated on this exam, secondary to unenhanced technique and a generalized absence of intra-abdominal and intrapelvic fat. There are findings highly suspicious for a high grade small bowel obstruction. There are multiple markedly dilated small bowel loops seen throughout the abdomen and pelvis. The colon appears decompressed. It is difficult to follow as a result. A ventral hernia is seen in the left anterior pelvic wall, which contains both small and large bowel loops. This is not definitely the cause of small bowel obstruction. Transition point for the suspected SBO is not definitely identified. A surgical suture line/surgical anastomosis is seen in the sigmoid colon. No evidence of pneumatosis intestinalis. APPENDIX: Normal appendix is not seen, however, there are no significant inflammatory changes visualized in the expected location of the appendix to suggest appendicitis. Recommend clinical correlation. PELVIS: BLADDER: Bladder is mildly dilated. REPRODUCTIVE:No acute abnormality of the reproductive organs is seen. No acute abnormality of the uterus identified. No evidence of large adnexal masses. ABDOMEN and PELVIS: INTRAPERITONEAL SPACE:No evidence of free intraperitoneal air or fluid. BONES/JOINTS: No acute fractures or other acute bony abnormality noted. SOFT TISSUES: See above. VASCULATURE: Atherosclerotic calcification. No evidence of abdominal aortic aneurysm. LYMPH NODES: No evidence of diffuse lymphadenopathy. IMPRESSION: - Findings highly suspicious for a high grade SBO. The bowel is suboptimally evaluated on this exam, however, and a transition point is not definitely identified. There is a ventral hernia in the left anterior pelvic wall containing bowel loops, but this is not definitely the cause of the obstruction. Consider a repeat CT with enteric and IV contrast OR a small bowel follow-through exam for better evaluation. - See above for remaining findings.
--- NOTE | 2017-10-31 20:36 | CP.PCM.CON ---
History of Present Illness - History of Present Illness History of Present Illness: General Surgery- Dr. Varela 82F pmhx colon ca w/ ostomy [place] [facility] from [facility] w/ decreased output from ostomy since 299. Unable to get complete patient history due to baseline mentation. Patient is AAOx2 to person and place only. Patient denies nausea, vomiting, abdominal pain. 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, HTN , AFib, shingles PSH: Colon resection, ostomy formation ALL: NKDA SocialHx: Lives at [facility], denies ETOH, tobacco, recreational drug use Review of Systems - Review of Systems All systems: reviewed and no additional remarkable complaints except - Constitutional Constitutional: As Per HPI Past Patient History - Infectious Disease Hx of Infectious Diseases: None - Past Social History Smoking Status: Never Smoked - CARDIAC Hx Cardiac Disorders: Yes Hx Atrial Fibrillation: Yes Hx Cardia Arrhythmia: Yes Hx Hypertension: Yes - PULMONARY Hx Respiratory Disorders: No Hx Asthma: No Hx Bronchitis: No Hx Chronic Obstructive Pulmonary Disease (COPD): No Hx Emphysema: No Hx Pneumonia: No - NEUROLOGICAL Hx Neurological Disorder: Yes Hx Alzheimer's Disease: Yes Hx Dementia: Yes - HEENT Hx HEENT Problems: Yes Hx Cataracts: Yes Hx Glaucoma: Yes - RENAL Hx Chronic Kidney Disease: No - ENDOCRINE/METABOLIC Hx Endocrine Disorders: No - HEMATOLOGICAL/ONCOLOGICAL Hx Cancer: Yes Hx Chemotherapy: Yes Hx Shingles: Yes - INTEGUMENTARY Hx Dermatological Problems: No - MUSCULOSKELETAL/RHEUMATOLOGICAL Hx Musculoskeletal Disorders: Yes Hx Falls: Yes Hx Unsteady Gait: Yes - GASTROINTESTINAL Hx Colostomy: Yes (1999) - GENITOURINARY/GYNECOLOGICAL Hx Genitourinary Disorders: No - PSYCHIATRIC Hx Psychophysiologic Disorder: No Hx Substance Use: No - SURGICAL HISTORY Other/Comment: colostomy 1999 - ANESTHESIA Hx Anesthesia: Yes Hx Anesthesia Reactions: No Hx Malignant Hyperthermia: No Meds Allergies/Adverse Reactions: Allergies Allergy/AdvReac Type Severity Reaction Status Date / Time No Known Allergies Allergy Verified 10/31/17 16:46 - Medications Medications: Current Medications Sodium Chloride (Sodium Chloride 0.9%) 1,000 mls @ 100 mls/hr IV .Q10H [facility] Last Admin: 10/31/17 17:34 Dose: 100 mls/hr Physical Exam - Constitutional Appears: Non-toxic, No Acute Distress, Chronically Ill - Head Exam Head Exam: ATRAUMATIC - Eye Exam Eye Exam: EOMI. absent: Scleral icterus - ENT Exam ENT Exam: Mucous Membranes Moist - Respiratory Exam Respiratory Exam: NORMAL BREATHING PATTERN. absent: Accessory Muscle Use, Respiratory Distress - Cardiovascular Exam Cardiovascular Exam: +S1, +S2. absent: Bradycardia, Tachycardia - GI/Abdominal Exam GI & Abdominal Exam: Distended, Hernia, Soft. absent: Firm, Guarding, Rebound, Rigid, Tenderness Additional comments: soft, non-tender, + distention Parastomal hernia, typanic Gas in ostomy bag - Extremities Exam Extremities exam: Negative for: calf tenderness - Neurological Exam Neurological exam: Alert Additional comments: alert to person and place only - Skin Skin Exam: Dry, Warm Results - Vital Signs Recent Vital Signs: Last Vital Signs Temp 97.8 F 10/31/17 16:52 Pulse 69 10/31/17 18:39 Resp 18 10/31/17 18:39 BP 115/58 L 10/31/17 18:39 Pulse Ox 100 10/31/17 18:39 - Labs Result Diagrams: 10/31/17 17:30 10/31/17 17:30 Assessment & Plan - Assessment and Plan (Free Text) Assessment: 82F hx colon ca w/ ostomy, w/ partial small bowel obstruction Plan: - NPO - IVF - Strict I/O - If vomits, will place NGT - f/u labs - serial abd exeams - will continue to follow - further recs per Dr. Varela surgical attending Kal Cross PGY1
[2017-10-31 23:49] VITALS: BMI 16.1
[2017-11-01 07:20] LABS: BASO # 0.01 K/mm3 (0.0-2.0); BASO % 0.2 % (0.0-3.0); EOS % 0.7 % (1.5-5.0); GRAN # 4.92 (1.4-6.5); HEMATOCRIT 35.3 % (36.0-48.0); LYMPH # 0.8 (1.2-3.4); LYMPH % 12.4 % (22.0-35.0); MEAN CELL VOLUME 98.3 fl (80.0-105.0); MEAN CORPUSCULAR HEMOGLOBIN 31.8 pg (25.0-35.0); MEAN CORPUSCULAR HGB CONC 32.3 g/dl (31.0-37.0); MEAN PLATELET VOLUME 8.8 fl (7.0-11.0); MONO # 0.4 (0.1-0.6); MONO % 6.7 % (1.0-6.0); RED CELL DISTRIBUTION WIDTH 13.9 % (11.5-14.5); WHITE BLOOD COUNT 6.1 10^3/ul (4.5-11.0)
[2017-11-01 08:53] LABS: ALB/GLOB RATIO 1.1 (1.1-1.8); ALKALINE PHOSPHATASE 97 U/L (38-126); ALT/SGPT 28 U/L (7-56); AST/SGOT 30 U/L (14-36); BILIRUBIN,TOTAL 0.5 mg/dL (0.2-1.3); BLOOD UREA NITROGEN 16 mg/dL (7-21); CALCIUM 8.4 mg/dL (8.4-10.5); CARBON DIOXIDE 24 mmol/L (21-33); CHLORIDE 108 mmol/L (98-107); GFR AFRICAN-AMERICAN > 60; GLUCOSE,RANDOM 90 mg/dL (70-110); POTASSIUM 4.3 mmol/L (3.6-5.0); SODIUM 140 mmol/L (132-148); TOTAL PROTEIN 5.9 g/dL (5.8-8.3)
--- NOTE | 2017-11-01 09:14 | CP.PCM.PN ---
Subjective - Date & Time of Evaluation Date of Evaluation: 11/01/17 Time of Evaluation: 09:14 - Subjective Subjective: Surgery Progress Note for Dr. Varela Pt seen and examined at bedside. No acute overnight events. Pt only oriented to person and place, states that the year is 1947. Pt denied CP, SOB, nausea, vomiting, diarrhea, constipation, abdominal pain, fever, chills, MIRANDA, and fatigue. Objective - Vital Signs/Intake and Output Vital Signs (last 24 hours): Temp Pulse Resp BP Pulse Ox 97.9 F 66 19 113/65 96 10/31/17 23:27 10/31/17 23:27 10/31/17 23:27 10/31/17 23:27 10/31/17 23:27 Intake and Output: 11/01/17 11/01/17 06:59 18:59 Intake Total 0 Output Total 0 Balance 0 - Medications Medications: Current Medications Sodium Chloride (Sodium Chloride 0.9%) 1,000 mls @ 100 mls/hr IV .Q10H [facility] Last Admin: 10/31/17 17:34 Dose: 100 mls/hr - Labs Labs: 11/01/17 06:30 11/01/17 06:30 - Constitutional Appears: No Acute Distress - Head Exam Head Exam: NORMAL INSPECTION - Eye Exam Eye Exam: Normal appearance Pupil Exam: NORMAL ACCOMODATION - ENT Exam ENT Exam: Normal Exam - Neck Exam Neck Exam: Normal Inspection - Respiratory Exam Respiratory Exam: NORMAL BREATHING PATTERN. absent: Accessory Muscle Use, Respiratory Distress - Cardiovascular Exam Cardiovascular Exam: RRR. absent: Gallop, Rubs, Murmur - GI/Abdominal Exam GI & Abdominal Exam: Distended, Soft. absent: Guarding, Rebound Additional comments: Stoma pink and moist without surrounding erythema or discharge. Ostomy bag filled with gas and soft stool. Parastomal hernia noted. Abdomen distended and tympanic to percussion. - Extremities Exam Extremities Exam: Normal Inspection - Neurological Exam Neurological Exam: Alert, Awake. absent: Oriented x3 (person and place only.) - Skin Skin Exam: Normal Color Assessment and Plan - Assessment and Plan (Free Text) Assessment: 82F hx colon ca w/ ostomy, w/ partial small bowel obstruction Plan: - NPO - IVF - Strict I/O - Consider NGT if patient vomits - serial abd exams - Medical management per primary - Will discuss with Dr. Avery Riley, PGY1
--- NOTE | 2017-11-01 17:43 | CP.PCM.CON ---
<Veda Tao - Last Filed: 11/01/17 17:43> History of Present Illness - History of Present Illness History of Present Illness: S&E at beside, chart reviewed, request for consult is for small bowel obstruction. HPI: This is an 82 y.o with a PMH of Dementia and Colon cancer with resection and ostomy. History obtained form medical/nursing staff and chart. Patient is awake,alert, and confused brought form [facility] with decrease ostomy output. The patient ostomy was reported to be filled with gas and decompressed. Ct scan A&P with contrast was done on admission reported suspicious for high grade SBO, the transition point not definitely identified. Ventral hernia in the left anterior pelvic wall. PMH: colon cancer s/p resection and ostomy, Alzhimer's dementia, HTN, Atrial Fibrillation, shingles PSH: Colon resection w/ ostomy Allergies: NKDA MEDS: reviewed as per JAN, on Xarelto Social HX: no h/o tobacco use, drugs or etoh ROS: unable to fully review with patient, see HPI Past Patient History - Infectious Disease Hx of Infectious Diseases: None - Past Social History Smoking Status: Never Smoked - CARDIAC Hx Cardiac Disorders: Yes Hx Cardia Arrhythmia: Yes Hx Hypertension: Yes - PULMONARY Hx Respiratory Disorders: No Hx Asthma: No Hx Bronchitis: No Hx Chronic Obstructive Pulmonary Disease (COPD): No Hx Emphysema: No Hx Pneumonia: No - NEUROLOGICAL Hx Neurological Disorder: Yes Hx Alzheimer's Disease: Yes Hx Dementia: Yes - HEENT Hx HEENT Problems: Yes Hx Cataracts: Yes Hx Glaucoma: Yes - RENAL Hx Chronic Kidney Disease: No - ENDOCRINE/METABOLIC Hx Endocrine Disorders: No - HEMATOLOGICAL/ONCOLOGICAL Hx Cancer: Yes Hx Chemotherapy: Yes Hx Shingles: Yes - INTEGUMENTARY Hx Dermatological Problems: No - MUSCULOSKELETAL/RHEUMATOLOGICAL Hx Musculoskeletal Disorders: Yes Hx Falls: Yes Hx Unsteady Gait: Yes - GASTROINTESTINAL Hx Colostomy: Yes (1999) - GENITOURINARY/GYNECOLOGICAL Hx Genitourinary Disorders: No - PSYCHIATRIC Hx Psychophysiologic Disorder: No - SURGICAL HISTORY Other/Comment: colostomy 1999 - ANESTHESIA Hx Anesthesia: Yes Hx Anesthesia Reactions: No Hx Malignant Hyperthermia: No Meds Allergies/Adverse Reactions: Allergies Allergy/AdvReac Type Severity Reaction Status Date / Time No Known Allergies Allergy Verified 10/31/17 16:46 - Medications Medications: Current Medications Sodium Chloride (Sodium Chloride 0.9%) 1,000 mls @ 100 mls/hr IV .Q10H [facility] Last Admin: 10/31/17 17:34 Dose: 100 mls/hr Ondansetron HCl (Zofran Inj) 4 mg IVP Q4H PRN PRN Reason: Nausea/Vomiting Physical Exam - Constitutional Appears: No Acute Distress - Head Exam Head Exam: NORMOCEPHALIC - Eye Exam Eye Exam: Normal appearance. absent: Scleral icterus - ENT Exam ENT Exam: Mucous Membranes Moist - Neck Exam Neck exam: Positive for: Normal Inspection - Respiratory Exam Respiratory Exam: NORMAL BREATHING PATTERN. absent: Respiratory Distress - Cardiovascular Exam Cardiovascular Exam: +S1, +S2 - GI/Abdominal Exam GI & Abdominal Exam: Hypoactive Bowel Sounds, Soft. absent: Guarding, Rebound, Tenderness Additional comments: (+) ostomy with stool noted, no blood - Extremities Exam Extremities exam: Positive for: pedal pulses present. Negative for: calf tenderness - Neurological Exam Neurological exam: Alert, Altered (confused) - Skin Skin Exam: Dry, Warm Results - Vital Signs Recent Vital Signs: Last Vital Signs Temp 97.7 F 11/01/17 16:00 Pulse 74 11/01/17 16:00 Resp 20 11/01/17 16:00 BP 107/71 11/01/17 16:00 Pulse Ox 92 L 11/01/17 16:00 - Labs Result Diagrams: 11/01/17 06:30 11/01/17 06:30 Labs: Laboratory Results - last 24 hr 11/01/17 11/01/17 11/01/17 06:30 06:30 07:30 WBC 6.1 D RBC 3.59 Hgb 11.4 L Hct 35.3 L MCV 98.3 MCH 31.8 MCHC 32.3 RDW 13.9 Plt Count 159 MPV 8.8 Gran % 80.0 H Lymph % (Auto) 12.4 L [place] % (Auto) 6.7 H Eos % (Auto) 0.7 L Baso % (Auto) 0.2 Gran # 4.92 Lymph # 0.8 L [place] # 0.4 Eos # 0.0 Baso # 0.01 Sodium 140 Potassium 4.3 Chloride 108 H Carbon Dioxide 24 Anion Gap 12 BUN 16 Creatinine 0.8 Est GFR ( Amer) > 60 Est GFR (Non-Af Amer) > 60 Random Glucose 90 Lactic Acid 0.8 Calcium 8.4 Total Bilirubin 0.5 AST 30 ALT 28 Alkaline Phosphatase 97 Total Protein 5.9 Albumin 3.1 Globulin 2.8 Albumin/Globulin Ratio 1.1 Assessment & Plan - Assessment and Plan (Free Text) Assessment: ASSESSMENT: Small bowel obstruction H/O colon cancer, s/p resection with colostomy Alzhimer's dementia Atrial fibrillation HTN PLAN: recommend in am to repeat ct scan A&P with ORAL contrast if patient tolerating liquids on clear liquids as per surgery consider NGT if patient N/V continue IVF GI prophylaxsis Zofran prn DVT prophylaxsis surgical FU Thank you for this consult and for allowing us to participate in your patients care, further recommendation based upon clinical course. Seen and discussed w/ Dr. Noble. <Curt Coleman V - Last Filed: 11/02/17 01:20> Meds - Medications Medications: Current Medications Famotidine (Pepcid) 20 mg IVP DAILY [facility] Last Admin: 11/01/17 21:59 Dose: 20 mg Sodium Chloride (Sodium Chloride 0.9%) 1,000 mls @ 100 mls/hr IV .Q10H [facility] Last Admin: 11/01/17 21:58 Dose: 100 mls/hr Ondansetron HCl (Zofran Inj) 4 mg IVP Q4H PRN PRN Reason: Nausea/Vomiting Results - Vital Signs Recent Vital Signs: Last Vital Signs Temp 97.7 F 11/01/17 16:00 Pulse 74 11/01/17 16:00 Resp 20 11/01/17 16:00 BP 107/71 11/01/17 16:00 Pulse Ox 92 L 11/01/17 16:00 - Labs Result Diagrams: 11/01/17 06:30 11/01/17 06:30 Labs: Laboratory Results - last 24 hr 11/01/17 11/01/17 11/01/17 06:30 06:30 06:30 WBC 6.1 D RBC 3.59 Hgb 11.4 L Hct 35.3 L MCV 98.3 MCH 31.8 MCHC 32.3 RDW 13.9 Plt Count 159 MPV 8.8 Gran % 80.0 H Lymph % (Auto) 12.4 L [place] % (Auto) 6.7 H Eos % (Auto) 0.7 L Baso % (Auto) 0.2 Gran # 4.92 Lymph # 0.8 L [place] # 0.4 Eos # 0.0 Baso # 0.01 Sodium 140 Potassium 4.3 Chloride 108 H Carbon Dioxide 24 Anion Gap 12 BUN 16 Creatinine 0.8 Est GFR ( Amer) > 60 Est GFR (Non-Af Amer) > 60 Random Glucose 90 Lactic Acid Calcium 8.4 Total Bilirubin 0.5 AST 30 ALT 28 Alkaline Phosphatase 97 Total Protein 5.9 Albumin 3.1 Globulin 2.8 Albumin/Globulin Ratio 1.1 Procalcitonin 0.09 L 11/01/17 07:30 WBC RBC Hgb Hct MCV MCH MCHC RDW Plt Count MPV Gran % Lymph % (Auto) [place] % (Auto) Eos % (Auto) Baso % (Auto) Gran # Lymph # [place] # Eos # Baso # Sodium Potassium Chloride Carbon Dioxide Anion Gap BUN Creatinine Est GFR ( Amer) Est GFR (Non-Af Amer) Random Glucose Lactic Acid 0.8 Calcium Total Bilirubin AST ALT Alkaline Phosphatase Total Protein Albumin Globulin Albumin/Globulin Ratio Procalcitonin Attending/Attestation - Attestation I have personally seen and examined this patient.: Yes I have fully participated in the care of the patient.: Yes I have reviewed all pertinent clinical information: Yes Notes (Text): This is an addendum to GI progress report dictated by Veda Tao APN.The patient was seen and examined earlier. Medical records, lab studies, imagings were reviewed. Last 24 hours events reviewed. Agreed with the above treatment plan as outlined in Veda Tao APN's notes the with the addition of the following on examination the para Colostomy appears to have reduced. But patient needs a CT with by mouth contrast to advancing diet further to solid diet H/ocolon lesion need to r/o mass lesion prior to advancing diet 11/02/17 01:17
[2017-11-01] MEDS: Sodium Chloride 0.9% 1,000 ML IV SCH (21:58)
[2017-11-02] MEDS ORDERED: Barium Sulfate Susp 2.1% w/v, 2.0% w/w 450 mL Bottle PO ONE (08:33)
--- NOTE | 2017-11-02 11:14 | CP.PCM.PN ---
Subjective - Date & Time of Evaluation Date of Evaluation: 11/02/17 Time of Evaluation: 11:12 - Subjective Subjective: PGY1 Note for Dr. Varela HPI: Patient seen and examined at bedside. Doing well with no complaints at this time. Tolerating CLD. Passing gas and liquid stool into colostomy. Confused. Objective - Vital Signs/Intake and Output Vital Signs (last 24 hours): Temp Pulse Resp BP Pulse Ox 98.7 F 112 H 18 109/65 97 11/02/17 09:27 11/02/17 09:27 11/02/17 09:27 11/02/17 09:27 11/02/17 09:27 Intake and Output: 11/02/17 11/02/17 06:59 18:59 Intake Total 120 Output Total 100 Balance 20 - Medications Medications: Current Medications Famotidine (Pepcid) 20 mg IVP DAILY [facility] Last Admin: 11/02/17 09:36 Dose: 20 mg Sodium Chloride (Sodium Chloride 0.9%) 1,000 mls @ 100 mls/hr IV .Q10H [facility] Last Admin: 11/01/17 21:58 Dose: 100 mls/hr Ondansetron HCl (Zofran Inj) 4 mg IVP Q4H PRN PRN Reason: Nausea/Vomiting - Labs Labs: 11/01/17 06:30 11/01/17 06:30 - Constitutional Appears: No Acute Distress, Confused - Head Exam Head Exam: ATRAUMATIC, NORMAL INSPECTION, NORMOCEPHALIC - Eye Exam Eye Exam: EOMI Pupil Exam: NORMAL ACCOMODATION - ENT Exam ENT Exam: Mucous Membranes Moist - Respiratory Exam Respiratory Exam: Clear to Ausculation Bilateral, NORMAL BREATHING PATTERN - Cardiovascular Exam Cardiovascular Exam: REGULAR RHYTHM - GI/Abdominal Exam GI & Abdominal Exam: Soft. absent: Distended, Tenderness Additional comments: ostomy, parastomal hernia - reduced - Extremities Exam Extremities Exam: absent: Joint Swelling, Tenderness - Neurological Exam Neurological Exam: Alert, Awake - Psychiatric Exam Psychiatric exam: Normal Affect, Normal Mood - Skin Skin Exam: Dry, Intact, Normal Color, Warm Assessment and Plan - Assessment and Plan (Free Text) Assessment: 82F hx colon ca w/ ostomy, w/ partial small bowel obstruction - resolved Plan: * Tolerating CLD * F/U CT abd/pel w/ PO contrast to R/O colonic mass * If no mass, will advance diet * Discuss with family possibility of ostomy reversal/hernia repair * Further reccs per Dr. Avery Marino PGY1
--- NOTE | 2017-11-02 15:51 | CP.PCM.PN ---
<Veda Tao - Last Filed: 11/02/17 15:49> Subjective - Date & Time of Evaluation Date of Evaluation: 11/02/17 Time of Evaluation: 09:45 - Subjective Subjective: S&E at bedside earlier today, drinking oral contrast and tolerating for repeat ct scan. No N/V finished clear liquid tray, stool noted in colostomy bag. Patient is more oriented this am. Denies N/V or abdominal pain. No acute overnight events reported. Objective - Vital Signs/Intake and Output Vital Signs (last 24 hours): Temp Pulse Resp BP Pulse Ox 98.7 F 112 H 18 109/65 97 11/02/17 09:27 11/02/17 09:27 11/02/17 09:27 11/02/17 09:27 11/02/17 09:27 Intake and Output: 11/02/17 11/02/17 06:59 18:59 Intake Total 120 1080 Output Total 100 Balance 20 1080 - Medications Medications: Current Medications Famotidine (Pepcid) 20 mg IVP DAILY [facility] Last Admin: 11/02/17 09:36 Dose: 20 mg Sodium Chloride (Sodium Chloride 0.9%) 1,000 mls @ 100 mls/hr IV .Q10H [facility] Last Admin: 11/01/17 21:58 Dose: 100 mls/hr Ondansetron HCl (Zofran Inj) 4 mg IVP Q4H PRN PRN Reason: Nausea/Vomiting - Labs Labs: 11/01/17 06:30 11/01/17 06:30 - Constitutional Appears: No Acute Distress - Eye Exam Eye Exam: Normal appearance. absent: Scleral icterus - ENT Exam ENT Exam: Mucous Membranes Moist - Respiratory Exam Respiratory Exam: NORMAL BREATHING PATTERN. absent: Respiratory Distress - Cardiovascular Exam Cardiovascular Exam: +S1, +S2 - GI/Abdominal Exam GI & Abdominal Exam: Soft, Hernia (parastomal, nontender, colostomy with "muddy " stool). absent: Guarding, Tenderness, Rebound - Neurological Exam Neurological Exam: Alert, Awake, Oriented x3 - Skin Skin Exam: Dry, Warm Assessment and Plan - Assessment and Plan (Free Text) Assessment: ASSESSMENT: Small bowel obstruction H/O colon cancer, s/p resection with colostomy Alzhimer's dementia Atrial fibrillation HTN PLAN: FU repeat ct scan A&P with ORAL contrast on clear liquids, recommend not to advance diet till after noting ct scan consider NGT if patient N/V continue IVF GI prophylaxsis Zofran prn DVT prophylaxsis surgical FU Seen and discussed w/ Dr. Noble. <Curt Coleman V - Last Filed: 11/02/17 23:24> Objective - Vital Signs/Intake and Output Vital Signs (last 24 hours): Temp Pulse Resp BP Pulse Ox 97.4 F L 58 L 18 151/59 H 100 11/02/17 16:00 11/02/17 16:00 11/02/17 16:00 11/02/17 16:00 11/02/17 16:00 Intake and Output: 11/02/17 11/03/17 18:59 06:59 Intake Total 1080 Balance 1080 - Medications Medications: Current Medications Famotidine (Pepcid) 20 mg IVP DAILY [facility] Last Admin: 11/02/17 09:36 Dose: 20 mg Sodium Chloride (Sodium Chloride 0.9%) 1,000 mls @ 100 mls/hr IV .Q10H [facility] Last Admin: 11/02/17 21:11 Dose: Not Given Ondansetron HCl (Zofran Inj) 4 mg IVP Q4H PRN PRN Reason: Nausea/Vomiting - Labs Labs: 11/01/17 06:30 11/01/17 06:30 Attending/Attestation - Attestation I have personally seen and examined this patient.: Yes I have fully participated in the care of the patient.: Yes I have reviewed all pertinent clinical information, including history, physical exam and plan: Yes Notes (Text): This is an addendum to GI progress report dictated by Veda Tao APN.The patient was seen and examined earlier. Medical records, lab studies, imagings were reviewed. Last 24 hours events reviewed. Agreed with the above treatment plan as outlined in Veda Tao APN's notes the with the addition of the following patient was reexamined later today although the larger paracolostomy hernia present with some distention of the abdomen. CT scan was reviewed and We will discuss with the surgical team regarding surgery 11/02/17 23:23
--- NOTE | 2017-11-02 16:15 | CT ---
PROCEDURE: CT Abdomen and Pelvis with contrast HISTORY: R/O colonic mass COMPARISON: 10/31/2017 CT abdomen and pelvis. 12.12.14 CT abdomen and pelvis. TECHNIQUE: Contrast dose: Radiation dose: Total exam DLP = mGy-cm. This CT exam was performed using one or more of the following dose reduction techniques: Automated exposure control, adjustment of the mA and/or kV according to patient size, and/or use of iterative reconstruction technique. FINDINGS: LOWER THORAX: Small bilateral pleural effusions, subsegmental atelectasis visualize lower lung cummings. LIVER: Unremarkable. No gross lesion or ductal dilatation. GALLBLADDER AND BILE DUCTS: Cholelithiasis without CT evidence of acute cholecystitis. PANCREAS: Unremarkable. No gross lesion or ductal dilatation. SPLEEN: Unremarkable. ADRENALS: Unremarkable. No mass. KIDNEYS AND URETERS: Unremarkable. No hydronephrosis. No solid mass. VASCULATURE: Unremarkable. No aortic aneurysm. BOWEL: The degree of small bowel dilatation apparent previously has diminished. Although the overall findings suggest that this may be an intermittent small bowel obstruction. There are several loops of distal small bowel with wall thickening suggestive of enteritis/ileitis. Separate from this is a focal loop of small bowel thickening in the left lower quadrant please refer to series - . This is not likely to be an mechanical, obstructing lesion. This has an atypical appearance of intussusception. This is separate from anterior abdominal wall ostomy site containing loops of small bowel and colon. There is a surgical suture line in the pelvis/sigmoid colon region. APPENDIX: Normal appendix. PERITONEUM: Unremarkable. No free fluid. No free air. LYMPH NODES: Unremarkable. No enlarged lymph nodes. BLADDER: Unremarkable. REPRODUCTIVE: Unremarkable. BONES: No acute fracture. OTHER FINDINGS: None. IMPRESSION: Interval improvement in what is thought to be intermittent small bowel obstruction. Residual enteritis/ ileitis. Focal loop of more proximal small bowel containing thickened wall not seen previously therefore not likely a mass per se. This may be an intussusception. Additional benign and/or incidental findings described above.
[2017-11-02] MEDS: Sodium Chloride 0.9% 1,000 ML IV SCH (21:11)
[2017-11-03] MEDS: Sodium Chloride 0.9% 1,000 ML IV SCH ×2 (05:44→15:47)
[2017-11-03 07:38] LABS: BASO # 0.03 K/mm3 (0.0-2.0); BASO % 0.9 % (0.0-3.0); EOS # 0.2 (0.0-0.7); EOS % 5.2 % (1.5-5.0); GRAN # 2.29 (1.4-6.5); GRAN % 66.6 % (50.0-68.0); HEMATOCRIT 34.3 % (36.0-48.0); LYMPH # 0.7 (1.2-3.4); LYMPH % 20.9 % (22.0-35.0); MEAN CELL VOLUME 98.3 fl (80.0-105.0); MEAN CORPUSCULAR HEMOGLOBIN 31.8 pg (25.0-35.0); MEAN CORPUSCULAR HGB CONC 32.4 g/dl (31.0-37.0); MEAN PLATELET VOLUME 9.4 fl (7.0-11.0); MONO # 0.2 (0.1-0.6); MONO % 6.4 % (1.0-6.0); RED CELL DISTRIBUTION WIDTH 14.1 % (11.5-14.5); WHITE BLOOD COUNT 3.4 10^3/ul (4.5-11.0)
[2017-11-03 08:20] LABS: BLOOD UREA NITROGEN 10 mg/dL (7-21); CALCIUM 8.5 mg/dL (8.4-10.5); CARBON DIOXIDE 24 mmol/L (21-33); CHLORIDE 109 mmol/L (98-107); GFR AFRICAN-AMERICAN > 60; GLUCOSE,RANDOM 88 mg/dL (70-110); POTASSIUM 3.9 mmol/L (3.6-5.0); SODIUM 140 mmol/L (132-148)
--- NOTE | 2017-11-03 09:03 | CP.PCM.PN ---
Subjective - Date & Time of Evaluation Date of Evaluation: 11/03/17 Time of Evaluation: 07:00 - Subjective Subjective: General Surgery- Dr. Varela Patient seen and examined at bedside this AM. AAOx2 to person and place. Tolerating current diet. denies abd pain. passing flatus and stool through ostomy. denies N/V F/C CP/SOB Objective - Vital Signs/Intake and Output Vital Signs (last 24 hours): Temp Pulse Resp BP Pulse Ox 97.3 F L 98 H 20 139/70 99 11/03/17 08:00 11/03/17 08:00 11/03/17 08:00 11/03/17 08:00 11/03/17 08:00 Intake and Output: 11/03/17 11/03/17 06:59 18:59 Intake Total 360 Output Total 150 Balance 210 - Medications Medications: Current Medications Famotidine (Pepcid) 20 mg IVP DAILY [facility] Last Admin: 11/02/17 09:36 Dose: 20 mg Sodium Chloride (Sodium Chloride 0.9%) 1,000 mls @ 100 mls/hr IV .Q10H [facility] Last Admin: 11/03/17 05:44 Dose: Not Given Ondansetron HCl (Zofran Inj) 4 mg IVP Q4H PRN PRN Reason: Nausea/Vomiting - Labs Labs: 11/03/17 05:30 11/03/17 06:00 - Constitutional Appears: Non-toxic, No Acute Distress - Head Exam Head Exam: ATRAUMATIC - ENT Exam ENT Exam: Mucous Membranes Moist - Respiratory Exam Respiratory Exam: NORMAL BREATHING PATTERN. absent: Accessory Muscle Use, Respiratory Distress - Cardiovascular Exam Cardiovascular Exam: +S1, +S2. absent: Bradycardia, Tachycardia - GI/Abdominal Exam GI & Abdominal Exam: Soft, Hernia. absent: Firm, Guarding, Rigid, Tenderness Additional comments: parastomal hernia stoma patent - Extremities Exam Extremities Exam: absent: Calf Tenderness - Neurological Exam Neurological Exam: Awake - Skin Skin Exam: Warm Assessment and Plan - Assessment and Plan (Free Text) Assessment: 82F w/ SBO, resolving; parastomal hernia Plan: - advance diet to soft - will reach out to the family to see if agreeable for ostomy reversal and parastomal hernia repair - medical management per primary - further recs per Dr. Avery Cross PGY1
[2017-11-04 04:09] VITALS: O2SAT 98
[2017-11-04] MEDS: Sodium Chloride 0.9% 1,000 ML IV SCH (06:15)
[2017-11-04 08:13] VITALS: PULSE 57; RESP 20
--- NOTE | 2017-11-05 02:32 | PN ---
DATE: 11/04/2017 SUBJECTIVE: This patient was seen and evaluated earlier today. The patient is tolerating the diet. No complaints of any abdominal pain. PHYSICAL EXAMINATION: VITAL SIGNS: Temperature is 97.9, pulse is 57, and blood pressure is 126/62. HEENT: Atraumatic. Anicteric. NECK: Supple. HEART: S1 and S2 heard. LUNGS: Bilateral air entry present. ABDOMEN: Soft. The paracolostomy hernia appears to be slightly less prominent. IMPRESSION AND PLAN: This 82-year-old patient admitted with partial small bowel obstruction probably secondary to the paracolostomy hernia, it is reduced, and tolerating the diet. *------* the patient has been planned to be transferred to the long term today. Gastroenterology would recommend to have surgery if this hernia is recurrent and symptomatic and if the patient's family is agreeable. Thank you very much for allowing us to participate in the care of the patient. Curt Coleman MD
[2017-11-05 07:41] VITALS: BP 128/72; TEMP 97.8
--- NOTE | 2017-11-05 08:07 | HP ---
CHIEF COMPLAINT: No stool output through the colostomy with swelling in the immediate area. HISTORY OF PRESENT ILLNESS: This is an 82-year-old woman, I have known for many years, with a history of colon cancer and a left-sided colostomy. No output was noted from the colostomy, so fear of bowel obstruction prompted her visit to the emergency room. PAST MEDICAL/SURGICAL HISTORY: Significant for atrial fibrilation, colon cancer, treated with colectomy. She also underwent cataract surgery in the distant past. She has a history of angiodysplasia of the stomach and duodenum. There is a question of some mild memory loss and forgetfulness as well. SOCIAL HISTORY: She is single, lives alone, with family nearby, eats a healthy diet, never smoked, does not drink alcohol. The patient states she lives along with family, although there is a question in another note that she was actually transferred to us from [facility], I will need to investigate this further. ALLERGIES: THERE ARE NO ALLERGIES TO MEDICATIONS. MEDICATIONS: Diltiazem, Xarelto because of a history of atrial fibrillation, and Tylenol. REVIEW OF SYSTEMS: On multiple points is otherwise unremarkable. PHYSICAL EXAMINATION: GENERAL: The patient was seen this evening, in room #572, bed #2. She is awake, alert, and ambulating to the bathroom, comfortable, recognizes me, engages in delightful and meaningful conversation. HEENT: Head, unremarkable. NECK: Unremarkable, supple, without masses. HEART: Regular. LUNGS: Clear. ABDOMEN: Soft with a left-sided colostomy present. There is an unusual soft puffiness of approximately 4 inches in diameter around the colostomy site. To me, this appears like a ventral wall hernia with the colostomy present. There is air easily expressed from this bulging area with gurgling as it goes back into the colon and some perhaps into the colostomy pouch. There are air and stool in colostomy pouch. I will defer to surgical exam for further explanation of this finding. EXTREMITIES: No edema. IMPRESSION: 1. Possible bowel obstruction. 2. History of colon cancer. 3. Left-sided colostomy with reported no output. 4. Questionable abdominal wall hernia at the ostomy site in the left lower quadrant. 5. Atrial fibrillation. PLAN: The patient was admitted to Med-Surg floor. Surgical consultation has been requested. I will need to talk to Dr. Varela about this finding and our plan. CT scan was done and GI consultation called as well. Hoang Lazaro MD MTDPernell
--- NOTE | 2017-11-05 22:51 | PN ---
DATE: She has a reconstructable colostomy and also has a paracolostomy hernia. Periodically, this can be reversed. At this time, she has no pain. The colostomy is working. This is going to be a recurrent problem. Discussed just doing the hernia and reversing the colostomy, she wants no part of an operation which is consisting what she told me last time when I met her. We will follow peripherally build out surgical intent. Hoang Varela MD
--- NOTE | 2017-11-06 01:07 | PN ---
DATE: 11/05/2017 SUBJECTIVE: This patient was seen and evaluated today. At the time of examination, the patient was well-dressed to be sent to the intermediate. Tolerating the diet. PHYSICAL EXAMINATION VITAL SIGNS: Stable. HEENT: Atraumatic. Anicteric. NECK: Supple. HEART: S1 and S2 heard. LUNGS: Bilateral air entry present. ABDOMEN: Soft. The paracolostomy hernia is still present. Her colostomy is functioning. IMPRESSION: This 82-year-old patient admitted with partial small bowel obstruction probably secondary to the paracolostomy hernia. The patient and the family is reluctant about the surgery. The patient is going to be transferred to the intermediate. We would recommend surgical intervention if the patient has any further episode of obstruction and also if the patient and family agreeable. They recommended low residue soft diet. Thank you very much for allowing me to participate in the care of the patient. Curt Coleman MD
== END 2017-11-05 12:31 | DRG 395 ==
LOC: ED 16:38 → ERH 19:26 → 5RSO 21:50
PROVIDERS: ADMIT Internal Medicine; ATTEND Internal Medicine
DX: K43.3 Parastomal hernia with obstruction, without gangrene (principal); I48.91 Unspecified atrial fibrillation; G30.9 Alzheimer's disease, unspecified; F02.80 Dementia in other diseases classified elsewhere, unspecified severity, without behavioral disturbance, psychotic disturbance, mood disturbance, and anxiety; I10 Essential (primary) hypertension; Z93.3 Colostomy status; Z85.038 Personal history of other malignant neoplasm of large intestine; Z79.01 Long term (current) use of anticoagulants

== ENCOUNTER 2018-01-24 14:45 | Inpatient (IN) | payer MEDICARE, OTHER ==
[2018-01-24 14:46] VITALS: PULSE 88; BMI 16.1
[2018-01-24] MEDS ORDERED: Piperacill/Tazo 4.5gm in NS 4.5 GM/100 ML BAG IVPB STA (15:09)
[2018-01-24] MEDS ORDERED: Sodium Chloride 0.9% 1,000 ML IV ONE (15:09)
--- NOTE | 2018-01-24 15:22 | ED PDOC ---
Arrival/HPI - General Chief Complaint: GI Problem Time Seen by Provider: 01/24/18 15:00 Historian: Patient - History of Present Illness Narrative History of Present Illness (Text): 01/24/18 15:03 A 82 year old female, whose past medical history includes left CA, hypertension , Atrial Fibrillation, colostomy, presents to the emergency department complaining of intermittent abdominal pain and abdominal distention. Dr. Aldana called the ER and informed me patient is from [facility]. Requests to call Dr. Varela for surgical consult. Patient notes also experiencing some nausea and vomiting, weakness, and feels mouth is dry. Patient denies any fever , chills, body aches, urinary symptoms, or any other complaints. PMD: Dr. Lazaro/Apurva Past Medical History - Provider Review Nursing Documentation Reviewed: Yes - Infectious Disease Hx of Infectious Diseases: None - Cardiac Hx Cardiac Disorders: Yes Hx Atrial Fibrillation: Yes Hx Cardiac Arrhythmia: Yes Hx Hypertension: Yes - Pulmonary Hx Respiratory Disorders: No Hx Asthma: No Hx Bronchitis: No Hx Chronic Obstructive Pulmonary Disease (COPD): No Hx Emphysema: No Hx Pneumonia: No - Neurological Hx Neurological Disorder: Yes Hx Alzheimer's Disease: Yes Hx Dementia: Yes - HEENT Hx HEENT Disorder: Yes Hx Cataracts: Yes Hx Glaucoma: Yes - Renal Hx Renal Disorder: No - Endocrine/Metabolic Hx Endocrine Disorders: No - Hematological/Oncological Hx Cancer: Yes Hx Chemotherapy: Yes Hx Shingles: Yes - Integumentary Hx Dermatological Disorder: No - Musculoskeletal/Rheumatological Hx Musculoskeletal Disorders: Yes Hx Falls: Yes Hx Unsteady Gait: Yes - Gastrointestinal Hx Colostomy: Yes (1999) - Genitourinary/Gynecological Hx Genitourinary Disorders: No - Psychiatric Hx Psychophysiologic Disorder: No Hx Substance Use: No - Surgical History Other/Comment: colostomy 1999 - Anesthesia Hx Anesthesia: Yes Hx Anesthesia Reactions: No Hx Malignant Hyperthermia: No - Suicidal Assessment Feels Threatened In Home Enviroment: No Family/Social History - Physician Review Nursing Documentation Reviewed: Yes Family/Social History: No Known Family HX Smoking Status: Never Smoked Hx Alcohol Use: No Hx Substance Use: No Allergies/Home Meds Allergies/Adverse Reactions: Allergies No Known Allergies Allergy (Verified 01/24/18 15:04) Home Medications: Home Meds Medication Instructions Recorded Confirmed Acetaminophen [Tylenol (Renal)] 650 mg PO PRN PRN 10/06/17 10/31/17 Rivaroxaban [Xarelto] 20 mg PO DAILY 10/31/17 10/31/17 diltiaZEM [Cardizem] 120 mg PO DAILY 10/31/17 10/31/17 Review of Systems - Physician Review All systems were reviewed & negative as marked: Yes - Review of Systems Constitutional: Other (weakness). absent: Fevers, Night Sweats Gastrointestinal: Abdominal Pain (intermittently, and abdominal distention), Nausea, Vomiting Musculoskeletal: absent: Myalgias Physical Exam Vital Signs Reviewed: Yes Vital Signs Temp Pulse Resp BP Pulse Ox 01/24/18 18:14 128 H 18 94/46 L 99 01/24/18 17:01 124 H 18 113/62 98 01/24/18 16:12 108 H 20 119/80 100 01/24/18 15:37 116 H 20 130/88 100 01/24/18 15:09 99.6 F 131 H 20 89/80 L 74 L Temperature: Afebrile Blood Pressure: Hypotensive Pulse: Tachycardic Respiratory Rate: Normal Appearance: Positive for: Well-Appearing Pain Distress: Mild Mental Status: Positive for: Alert and Oriented X 3 - Systems Exam Head: Present: Atraumatic, Normocephalic Pupils: Present: PERRL Extroacular Muscles: Present: EOMI Conjunctiva: Present: Normal Mouth: Present: Dry Neck: Present: Normal Range of Motion Respiratory/Chest: Present: Clear to Auscultation, Good Air Exchange. No: Respiratory Distress, Accessory Muscle Use Cardiovascular: Present: Tachycardic Abdomen: Present: Tenderness, Distention, Rebound. No: Guarding Back: Present: Normal Inspection Upper Extremity: Present: Normal Inspection. No: Cyanosis, Edema Lower Extremity: Present: Normal Inspection. No: Edema Neurological: Present: GCS=15, CN II-XII Intact, Speech Normal Skin: Present: Warm, Dry, Normal Color. No: Rashes Psychiatric: Present: Alert, Oriented x 3, Normal Insight, Normal Concentration Medical Decision Making ED Course and Treatment: 01/24/18 15:09 Impression: 82 year old female with intermittent abdominal pain and abdominal distention. Physical exam shows abdomen is tender and distended with guarding, no rebound; patient is tachycardic and hypotensive; dry mucous membrane. Differential Diagnosis included but are not limited to: Abdominal Pain r/o Obstruction vs. Infection Plan: -- EKG -- Abd/Pelvis CT -- Abdominal X-Ray -- Chest X-ray -- Labs -- Venous Blood Gas -- Blood Culture -- Urine Culture -- IV Fluids -- Piperacill -- Urinalysis -- Procacitonin Serum -- Kaur Catheter Placement -- Reassess and disposition Prior Visits: Notes and results from previous visits were reviewed. Patient was last seen in the emergency department on 10/31/2017 for decreased output from colostomy bag. Patient was admitted. Progress Notes: EKG: Ordered, reviewed, and independently interpreted the EKG. Rate : 137 BPM Rhythm : Atrial Fibrillation Interpretation : No ST-segment elevations or depressions, no T-wave inversions, normal intervals. Comparison : No previous EKG for comparison. 01/24/2018 15:12 Case discussed with surgical instruments inspector Dr. Rolf Soliz, working with Dr. Varela, whom states will come down to see patient. 01/24/2018 15:55 Code sepsis called. 01/24/18 17:03 Dr. Varela came to evaluate patient and he recommended ICU admission. He states that patient is not agreeable to surgery at this moment. He will manage medically with surgical team. Discussed case with the ICU Attending Dr. Bush who will accept patient to the ICU. 01/24/18 17:[address] Levin came down to evaluate patient and they placed an NGT that had about 1L drainage. NS 1 Liter fluids ordered. They are aware of CT and will discuss plan with Dr. Varela. 01/24/18 17:44 Dr. Redman, radiologist gave me a prelim on the CT report. She states [facility] will complete report. She states there is: 1. free air 2. extensive pneumobilious 3. bowel ischemia 4. severely distended loops of bowels with suspicion of obstruction I immediately called Dr. Rolf Soliz, surgical instruments inspector, who is aware of the prelim results. 01/24/18 18:58 Accession No. : [id number] Patient Name / ID : MARTI BARRAGAN / [id number] Exam Date : 01/24/2018 16:29:05 ( Approved ) Study Comment : Sex / Age : F / 82Y Creator : Yamilet Bryant MD Dictator : Yamilet Bryant MD Body Painter : Bakery Chef : Yamilet Bryant MD Approver2 : Report Date : 01/24/2018 18:52:18 My Comment : CT abdomen and pelvis without IV contrast Indication: abd pain and distention r/o obstruction Technique: Contiguous axial images of the abdomen and pelvis. No oral or IV contrast given. Coronal and Sagittal reformats generated and reviewed. This CT exam was performed using 1 or more of the following dose reduction techniques: Automated exposure control, adjustment of the MAA and/or kV according to patient size, and/or use of iterative reconstruction technique. Radiation dose: Total exam DLP = 216.16 MGy-cm. Comparison: CT abdomen and pelvis without IV contrast performed 11/02/17 Findings: No visible consolidation, pleural effusion, or pneumothorax. Examination limited by lack of oral and IV contrast as well as paucity of intra- abdominal fat Extensive portal venous gas. Pneumatosis noted throughout numerous bowel loops. Dilated bowel loops consistent with small bowel obstruction. Transition point is unclear however location of obstruction is suspected at the site of ostomy/ parastomal hernia. Abdominal free air worrisome for perforated viscus. Cholelithiasis. The noncontrast spleen, kidneys, and adrenal glands appear grossly unremarkable. The pancreas is not well visualized. Decompressed urinary bladder precludes adequate evaluation. Evidence of Kaur catheter which extends far posteriorly ; correlate clinically to exclude possibility of placement in the vagina. Dense atherosclerotic calcifications. Multilevel degenerative changes of the osseous structures. Impression: Limited study as above. Extensive portal venous gas. Pneumatosis noted throughout numerous bowel loops. Dilated bowel loops consistent with small bowel obstruction. Transition point is unclear however location of obstruction is suspected at the site of left lower quadrant ostomy/ parastomal hernia. Abdominal free air worrisome for perforated viscus. Cholelithiasis. Decompressed urinary bladder precludes adequate evaluation. Evidence of Kaur catheter which extends far posteriorly ; correlate clinically to exclude possibility of placement in the vagina. Findings discussed with Dr. Montes De Oca on 01/24/18 at 5:[address] Soliz notified by me of official ready of CT. - Critical Care Critical Care Minutes: 90 minutes - Lab Interpretations Lab Results: 01/24/18 15:15 01/24/18 15:15 Lab Results 01/24/18 17:14: pO2 220 H, VBG pH 7.49 H, VBG pCO2 32.0 L, VBG HCO3 24.4, VBG Total CO2 25.4, VBG O2 Sat (Calc) 99.6 H, VBG Base Excess 1.7, VBG Potassium 4.1 , Sodium 132.0, Chloride 101.0, Glucose 117 H, Lactate 3.4 H, FiO2 21.0, Venous Blood Potassium 4.1 01/24/18 15:55: Urine Color Yellow, Urine Appearance Clear, Urine pH 6.5, Ur Specific [place] 1.025, Urine Protein 30 H, Urine Glucose (UA) Negative, Urine Ketones Negative, Urine Blood Negative, Urine Nitrate Negative, Urine Bilirubin Negative, Urine Urobilinogen 0.2, Ur Leukocyte Esterase Negative, Urine RBC Negative, Urine WBC Negative, Ur Epithelial Cells None, Hyaline Casts 0 - 2 01/24/18 15:15: Sodium 135, Chloride 93 L, Potassium 4.3, Carbon Dioxide 26, Anion Gap 21 H, BUN 51 H, Creatinine 2.2 H, Est GFR ( Amer) 26, Est GFR ( Non-Af Amer) 21, Random Glucose 143 H, Calcium 9.1, Phosphorus 6.4 H, Magnesium 1.8, Total Bilirubin 0.7, AST 33, ALT 26, Alkaline Phosphatase 62, Total Protein 5.8, Albumin 3.1, Globulin 2.7, Albumin/Globulin Ratio 1.2 01/24/18 15:15: pO2 47, VBG pH 7.35, VBG pCO2 46.0, VBG HCO3 25.4, VBG Total CO2 26.8, VBG O2 Sat (Calc) 81.3 H, VBG Base Excess -0.6 L, VBG Potassium 4.4, Sodium 134.0, Chloride 93.0 L, Glucose 145 H, Lactate 6.7 H*, FiO2 21.0, Venous Blood Potassium 4.4 01/24/18 15:15: PT 17.4 H, INR 1.51 H, APTT 28.8 01/24/18 15:15: WBC 2.8 L*, RBC 4.79, Hgb 15.4 D, Hct 45.9, MCV 95.8, MCH 32.2 , MCHC 33.6, RDW 14.7 H, Plt Count 219, MPV 10.3, Gran % 75.5 H, Lymph % (Auto) 15.6 L, [place] % (Auto) 8.9 H, Eos % (Auto) 0.0 L, Baso % (Auto) 0.0, Gran # 2.13 , Lymph # (Auto) 0.4 L, [place] # (Auto) 0.3, Eos # (Auto) 0.0, Baso # (Auto) 0.00 - RAD Interpretation Radiology Orders: 01/24/18 15:09 CHEST PORTABLE [RAD] Stat 01/24/18 15:16 ABDOMEN (FLAT PLATE) 1VIEW [RAD] Stat 01/24/18 15:17 ABD & PELVIS W/O PO OR IV CONT [CT] Stat - Medication Orders Current Medication Orders: Acetaminophen (Tylenol 325mg Tab) 650 mg PO Q6 PRN PRN Reason: Pain, Mild (1-3) Diltiazem HCl (Cardizem Cd) 120 mg PO DAILY KATY Enoxaparin Sodium (Lovenox) 30 mg SC Q12H KATY PRN Reason: Protocol Sodium Chloride (Sodium Chloride 0.9%) 1,000 mls @ 100 mls/hr IV .Q10H KATY Last Admin: 01/24/18 17:38 Dose: 100 mls/hr eMAR Start Stop Document 01/24/18 17:38 LMC (Rec: 01/24/18 17:39 LMC [id number]) Intravenous Solution Start Date 01/24/18 Start Time 16:30 Sodium Chloride (Sodium Chloride 0.9%) 1,000 mls @ 100 mls/hr IV .Q10H KATY Last Admin: 01/24/18 17:38 Dose: 100 mls/hr eMAR Start Stop Document 01/24/18 17:38 LMC (Rec: 01/24/18 17:38 LMC [id number]) Intravenous Solution Start Date 01/24/18 Start Time 17:38 Piperacillin Sod/Tazobactam Sod (Zosyn 2.25 Gm In 0.9% 100 Ml) 2.25 gm in 100 mls @ 100 mls/hr IVPB Q6 KATY PRN Reason: Protocol Stop: 01/25/18 00:59 Morphine Sulfate (Morphine) 2 mg IVP Q4H PRN PRN Reason: Pain, moderate (4-7) Ondansetron HCl (Zofran Inj) 4 mg IVP Q4 PRN PRN Reason: Nausea/Vomiting Pantoprazole Sodium (Protonix Inj) 40 mg IVP DAILY KATY Discontinued Medications Sodium Chloride (Sodium Chloride 0.9%) 1,000 mls @ 2,000 mls/hr IV .Q30M ONE Stop: 01/24/18 15:38 Last Admin: 01/24/18 15:32 Dose: 2,000 mls/hr eMAR Start Stop Document 01/24/18 15:32 LMC (Rec: 01/24/18 15:32 LMC [id number]) Intravenous Solution Start Date 01/24/18 Start Time 15:32 End Date 01/24/18 End time 16:03 Total Infusion Time 31 Piperacillin Sod/Tazobactam Sod (Zosyn 4.5 Gm In Ns 100ml) 4.5 gm in 100 mls @ 200 mls/hr IVPB STAT STA PRN Reason: Protocol Stop: 01/24/18 15:38 Last Admin: 01/24/18 15:33 Dose: 200 mls/hr eMAR Start Stop Document 01/24/18 15:33 LMC (Rec: 01/24/18 15:34 LMC [id number]) Intravenous Solution Start Date 01/24/18 Start Time 15:33 End Date 01/24/18 End time 16:04 Total Infusion Time 31 Sodium Chloride (Sodium Chloride 0.9%) 1,000 mls @ 999 mls/hr IV .Q1H1M STA Stop: 01/24/18 16:54 Last Admin: 01/24/18 15:55 Dose: 999 mls/hr eMAR Start Stop Document 01/24/18 15:55 LMC (Rec: 01/24/18 17:37 LMC [id number]) Intravenous Solution Start Date 01/24/18 Start Time 17:37 End Date 01/24/18 End time 18:40 Total Infusion Time 63 Sodium Chloride (Sodium Chloride 0.9%) 1,000 mls @ 999 mls/hr IV .Q1H1M STA Stop: 01/24/18 18:27 Last Admin: 01/24/18 17:37 Dose: 999 mls/hr eMAR Start Stop Document 01/24/18 17:37 LMC (Rec: 01/24/18 17:38 LMC [id number]) Intravenous Solution Start Date 01/24/18 Start Time 17:37 End Date 01/24/18 End time 18:37 Total Infusion Time 60 Morphine Sulfate (Morphine) 2 mg IVP STAT STA Stop: 01/24/18 17:44 Last Admin: 01/24/18 17:54 Dose: 2 mg MAR Pain Assessment Document 01/24/18 17:54 LMC (Rec: 01/24/18 17:55 LMC [id number]) Pain Reassessment Is this a pain reassessment? No Sleep Is patient sleeping during reassessment? No Presence of Pain Presence of Pain Yes Pain Scale Used Pain Scale Used Numeric Location Pain Location Body Site Abdomen Description Intensity of Pain at present 8 IVP Administration Document 01/24/18 17:54 LMC (Rec: 01/24/18 17:55 LMC [id number]) Charges for Administration # of IVP Administrations 1 Non-Formulary Medication (Diltiazem [Cardizem]) 120 mg PO DAILY KATY - Scribe Statement The provider has reviewed the documentation as recorded by the Chris Mehta Provider Scribe Attestation: All medical record entries made by the Scribvera were at my direction and personally dictated by me. I have reviewed the chart and agree that the record accurately reflects my personal performance of the history, physical exam, medical decision making, and the department course for this patient. I have also personally directed, reviewed, and agree with the discharge instructions and disposition. Disposition/Present on Arrival - Present on Arrival Any Indicators Present on Arrival: No History of DVT/PE: No History of Uncontrolled Diabetes: No Urinary Catheter: No History of Decub. Ulcer: No History Surgical Site Infection Following: None - Disposition Have Diagnosis and Disposition been Completed?: Yes Diagnosis: SBO (small bowel obstruction), Pneumobilia, Septic shock Disposition: HOSPITALIZED Disposition Time: 17:27 Patient Plan: ICU Condition: CRITICAL
[2018-01-24 15:48] LABS: VENOUS BLOOD GAS BASE EXCESS -0.6 mmol/L (0.0-2.0); VENOUS BLOOD GAS PO2 47 mm/Hg (30-55); VENOUS BLOOD PH 7.35 (7.32-7.43)
[2018-01-24] MEDS ORDERED: Sodium Chloride 0.9% 1,000 ML IV STA ×2 (15:54→17:27)
[2018-01-24 15:57] LABS: GRAN # 2.13 (1.4-6.5); GRAN % 75.5 % (50.0-68.0); HEMOGLOBIN 15.4 g/dL (12.0-16.0); LYMPH # 0.4 (1.2-3.4); LYMPH % 15.6 % (22.0-35.0); MEAN CELL VOLUME 95.8 fl (80.0-105.0); MEAN CORPUSCULAR HEMOGLOBIN 32.2 pg (25.0-35.0); MEAN CORPUSCULAR HGB CONC 33.6 g/dl (31.0-37.0); MEAN PLATELET VOLUME 10.3 fl (7.0-11.0); MONO # 0.3 (0.1-0.6); MONO % 8.9 % (1.0-6.0); RBC 4.79 10^6/uL (3.5-6.1); RED CELL DISTRIBUTION WIDTH 14.7 % (11.5-14.5)
[2018-01-24 16:04] LABS: PH,URINE 6.5 (4.7-8.0); URINE BILIRUBIN NEGATIVE (NEGATIVE); URINE BLOOD NEGATIVE (NEGATIVE); URINE GLUCOSE (UA) NEGATIVE (NEGATIVE); URINE LEUKOCYTE ESTERASE NEGATIVE Leu/uL (NEGATIVE); URINE PROTEIN 30 mg/dL (<30 mg/dL); URINE UROBILINOGEN 0.2 E.U./dL (<1 E.U./dL)
[2018-01-24 16:06] LABS: URINE APPEARANCE CLEAR (CLEAR); URINE COLOR YELLOW (YELLOW)
[2018-01-24 16:08] LABS: ALB/GLOB RATIO 1.2 (1.1-1.8); ALBUMIN 3.1 g/dL (3.0-4.8); CALCIUM 9.1 mg/dL (8.4-10.5)
[2018-01-24 16:09] LABS: WHITE BLOOD COUNT 2.8 10^3/ul (4.5-11.0)
[2018-01-24 16:10] LABS: PROTHROMBIN TIME 17.4 SECONDS (9.4-12.5)
[2018-01-24 16:11] LABS: INR 1.51 (0.93-1.08); PARTIAL THROMBOPLASTIN TIME 28.8 Seconds (25.1-36.5)
--- NOTE | 2018-01-24 16:14 | CP.PCM.CON ---
History of Present Illness - History of Present Illness History of Present Illness: Surgery 82F pmhx colon ca w/ ostomy , SBO [place] [facility] w/ coffee ground emesis and abdominal distention. Unable to get complete patient history due to baseline mentation. Pt has baseline dementia. Patient denies abdominal pain. Stoma is pink and has some solid output. In ED pt was found to be hypotensive and tachycardic. Code sepsis was called for lactate of 6.7. PMH: Alzhimer's dementia, colon ca s/p colon resection and ostomy formation, HTN , AFib, shingles, ABO PSH: Colon resection, ostomy formation SocialHx: Lives at [facility], denies ETOH, tobacco, recreational drug use Review of Systems - Review of Systems Systems not reviewed;Unavailable: Dementia Past Patient History - Infectious Disease Hx of Infectious Diseases: None - Past Social History Smoking Status: Never Smoked - CARDIAC Hx Cardiac Disorders: Yes Hx Atrial Fibrillation: Yes Hx Cardia Arrhythmia: Yes Hx Hypertension: Yes - PULMONARY Hx Respiratory Disorders: No Hx Asthma: No Hx Bronchitis: No Hx Chronic Obstructive Pulmonary Disease (COPD): No Hx Emphysema: No Hx Pneumonia: No - NEUROLOGICAL Hx Neurological Disorder: Yes Hx Alzheimer's Disease: Yes Hx Dementia: Yes - HEENT Hx HEENT Problems: Yes Hx Cataracts: Yes Hx Glaucoma: Yes - RENAL Hx Chronic Kidney Disease: No - ENDOCRINE/METABOLIC Hx Endocrine Disorders: No - HEMATOLOGICAL/ONCOLOGICAL Hx Cancer: Yes Hx Chemotherapy: Yes Hx Shingles: Yes - INTEGUMENTARY Hx Dermatological Problems: No - MUSCULOSKELETAL/RHEUMATOLOGICAL Hx Musculoskeletal Disorders: Yes Hx Falls: Yes Hx Unsteady Gait: Yes - GASTROINTESTINAL Hx Colostomy: Yes (1999) - GENITOURINARY/GYNECOLOGICAL Hx Genitourinary Disorders: No - PSYCHIATRIC Hx Psychophysiologic Disorder: No Hx Substance Use: No - SURGICAL HISTORY Other/Comment: colostomy 1999 - ANESTHESIA Hx Anesthesia: Yes Hx Anesthesia Reactions: No Hx Malignant Hyperthermia: No Meds Allergies/Adverse Reactions: Allergies Allergy/AdvReac Type Severity Reaction Status Date / Time No Known Allergies Allergy Verified 01/24/18 15:04 - Medications Medications: Current Medications Sodium Chloride (Sodium Chloride 0.9%) 1,000 mls @ 999 mls/hr IV .Q1H1M STA Stop: 01/24/18 16:54 Physical Exam - Constitutional Appears: In Acute Distress - Head Exam Head Exam: ATRAUMATIC, NORMAL INSPECTION, NORMOCEPHALIC - Eye Exam Eye Exam: EOMI, Normal appearance, PERRL Pupil Exam: NORMAL ACCOMODATION, PERRL - ENT Exam ENT Exam: Mucous Membranes Moist, Normal Exam - Neck Exam Neck exam: Positive for: Normal Inspection - Respiratory Exam Respiratory Exam: Clear to Auscultation Bilateral, NORMAL BREATHING PATTERN - Cardiovascular Exam Cardiovascular Exam: REGULAR RHYTHM - GI/Abdominal Exam GI & Abdominal Exam: Distended, Hernia, Normal Bowel Sounds, Tenderness Additional comments: Stoma in place: pink, solid stool in the bag. - Exam Additional comments: Kaur in place. - Extremities Exam Extremities exam: Negative for: pedal edema, tenderness - Back Exam Back exam: NORMAL INSPECTION - Skin Skin Exam: Dry, Intact, Normal Color, Warm Results - Vital Signs Recent Vital Signs: Last Vital Signs Temp 99.6 F 01/24/18 15:09 Pulse 108 H 01/24/18 16:12 Resp 20 01/24/18 16:12 BP 119/80 01/24/18 16:12 Pulse Ox 100 01/24/18 16:12 - Labs Result Diagrams: 01/24/18 15:15 01/24/18 15:15 Labs: Laboratory Results - last 24 hr 01/24/18 01/24/18 01/24/18 15:15 15:15 15:15 WBC 2.8 L* RBC 4.79 Hgb 15.4 D Hct 45.9 MCV 95.8 MCH 32.2 MCHC 33.6 RDW 14.7 H Plt Count 219 MPV 10.3 Gran % 75.5 H Lymph % (Auto) 15.6 L [place] % (Auto) 8.9 H Eos % (Auto) 0.0 L Baso % (Auto) 0.0 Gran # 2.13 Lymph # (Auto) 0.4 L [place] # (Auto) 0.3 Eos # (Auto) 0.0 Baso # (Auto) 0.00 PT 17.4 H INR 1.51 H APTT 28.8 pO2 47 VBG pH 7.35 VBG pCO2 46.0 VBG HCO3 25.4 VBG Total CO2 26.8 VBG O2 Sat (Calc) 81.3 H VBG Base Excess -0.6 L VBG Potassium 4.4 Sodium 134.0 Chloride 93.0 L Glucose 145 H Lactate 6.7 H* FiO2 21.0 Potassium Carbon Dioxide Anion Gap BUN Creatinine Est GFR ( Amer) Est GFR (Non-Af Amer) Random Glucose Calcium Phosphorus Magnesium Total Bilirubin AST ALT Alkaline Phosphatase Total Protein Albumin Globulin Albumin/Globulin Ratio Venous Blood Potassium 4.4 Urine Color Urine Appearance Urine pH Ur Specific [place] Urine Protein Urine Glucose (UA) Urine Ketones Urine Blood Urine Nitrate Urine Bilirubin Urine Urobilinogen Ur Leukocyte Esterase 01/24/18 01/24/18 15:15 15:55 WBC RBC Hgb Hct MCV MCH MCHC RDW Plt Count MPV Gran % Lymph % (Auto) [place] % (Auto) Eos % (Auto) Baso % (Auto) Gran # Lymph # (Auto) [place] # (Auto) Eos # (Auto) Baso # (Auto) PT INR APTT pO2 VBG pH VBG pCO2 VBG HCO3 VBG Total CO2 VBG O2 Sat (Calc) VBG Base Excess VBG Potassium Sodium 135 Chloride 93 L Glucose Lactate FiO2 Potassium 4.3 Carbon Dioxide 26 Anion Gap 21 H BUN 51 H Creatinine 2.2 H Est GFR ( Amer) 26 Est GFR (Non-Af Amer) 21 Random Glucose 143 H Calcium 9.1 Phosphorus 6.4 H Magnesium 1.8 Total Bilirubin 0.7 AST 33 ALT 26 Alkaline Phosphatase 62 Total Protein 5.8 Albumin 3.1 Globulin 2.7 Albumin/Globulin Ratio 1.2 Venous Blood Potassium Urine Color Yellow Urine Appearance Clear Urine pH 6.5 Ur Specific [place] 1.025 Urine Protein 30 H Urine Glucose (UA) Negative Urine Ketones Negative Urine Blood Negative Urine Nitrate Negative Urine Bilirubin Negative Urine Urobilinogen 0.2 Ur Leukocyte Esterase Negative Assessment & Plan - Assessment and Plan (Free Text) Assessment: 82F hx colon ca w/ ostomy, w/ partial small bowel obstruction Plan: - NPO - IVF - Strict I/O - If vomits, will place NGT - f/u labs - serial abd exeams - will continue to follow DW Dr. Varela surgical attending
[2018-01-24 16:15] LABS: URINE HYALINE CAST 0 - 2 /hpf; URINE RBC NEGATIVE /hpf (0-2); URINE WBC NEGATIVE /hpf (0-6)
[2018-01-24 17:31] LABS: VENOUS BLOOD GAS BASE EXCESS 1.7 mmol/L (0.0-2.0); VENOUS BLOOD GAS PO2 220 mm/Hg (30-55); VENOUS BLOOD PH 7.49 (7.32-7.43)
[2018-01-24] MEDS: Sodium Chloride 0.9% 1,000 ML IV SCH (17:38)
[2018-01-24] MEDS ORDERED: Morphine 2 mg/ml ISec IVP STA (17:43)
[2018-01-24] MEDS ORDERED: Sodium Chloride 0.9% 1,000 ML IV SCH (17:45)
--- NOTE | 2018-01-24 17:48 | CP.PCM.CON ---
History of Present Illness - History of Present Illness History of Present Illness: Critical Care Consult Note HPI Patient is 82yo female with PMhx of Colon CA w/ ostomy, Dementia, Afib on A/C, presents from longterm with coffee ground emesis and abdominal pain and distention. History is limited. Pt reports abdomimnal pain is moderate/severe that began today. Denies fever, chills, cough, chest pain, sob. Pt found to vae partial SBO on CT A/P with elevated lactate 6.7-->3.4. Currently afebrile, HD stabl,e SBP 110-120s, awake, alert, NGT placed by surgery with ~700cc of dark brown material emitted via suction. Seen by surgery, consult appreciated. PMHx as above PSHx as above Allergies NKDA Meds as per EMR ROS as above FHx NC Review of Systems - Review of Systems Review of Systems: as per HPI Past Patient History - Infectious Disease Hx of Infectious Diseases: None - Past Social History Smoking Status: Never Smoked - CARDIAC Hx Cardiac Disorders: Yes Hx Atrial Fibrillation: Yes Hx Cardia Arrhythmia: Yes Hx Hypertension: Yes - PULMONARY Hx Respiratory Disorders: No Hx Asthma: No Hx Bronchitis: No Hx Chronic Obstructive Pulmonary Disease (COPD): No Hx Emphysema: No Hx Pneumonia: No - NEUROLOGICAL Hx Neurological Disorder: Yes Hx Alzheimer's Disease: Yes Hx Dementia: Yes - HEENT Hx HEENT Problems: Yes Hx Cataracts: Yes Hx Glaucoma: Yes - RENAL Hx Chronic Kidney Disease: No - ENDOCRINE/METABOLIC Hx Endocrine Disorders: No - HEMATOLOGICAL/ONCOLOGICAL Hx Cancer: Yes Hx Chemotherapy: Yes Hx Shingles: Yes - INTEGUMENTARY Hx Dermatological Problems: No - MUSCULOSKELETAL/RHEUMATOLOGICAL Hx Musculoskeletal Disorders: Yes Hx Falls: Yes Hx Unsteady Gait: Yes - GASTROINTESTINAL Hx Colostomy: Yes (1999) - GENITOURINARY/GYNECOLOGICAL Hx Genitourinary Disorders: No - PSYCHIATRIC Hx Psychophysiologic Disorder: No Hx Substance Use: No - SURGICAL HISTORY Other/Comment: colostomy 1999 - ANESTHESIA Hx Anesthesia: Yes Hx Anesthesia Reactions: No Hx Malignant Hyperthermia: No Meds Allergies/Adverse Reactions: Allergies Allergy/AdvReac Type Severity Reaction Status Date / Time No Known Allergies Allergy Verified 01/24/18 15:04 - Medications Medications: Current Medications Sodium Chloride (Sodium Chloride 0.9%) 1,000 mls @ 100 mls/hr IV .Q10H KATY Last Admin: 01/24/18 17:38 Dose: 100 mls/hr Sodium Chloride (Sodium Chloride 0.9%) 1,000 mls @ 999 mls/hr IV .Q1H1M STA Stop: 01/24/18 18:27 Last Admin: 01/24/18 17:37 Dose: 999 mls/hr Sodium Chloride (Sodium Chloride 0.9%) 1,000 mls @ 100 mls/hr IV .Q10H KATY Last Admin: 01/24/18 17:38 Dose: 100 mls/hr Piperacillin Sod/Tazobactam Sod (Zosyn 2.25 Gm In 0.9% 100 Ml) 2.25 gm in 100 mls @ 100 mls/hr IVPB Q6 KATY PRN Reason: Protocol Stop: 01/25/18 00:59 Ondansetron HCl (Zofran Inj) 4 mg IVP Q4 PRN PRN Reason: Nausea/Vomiting Physical Exam - Constitutional Appears: No Acute Distress - Head Exam Head Exam: NORMAL INSPECTION - Eye Exam Eye Exam: Normal appearance - ENT Exam ENT Exam: Mucous Membranes Dry - Respiratory Exam Respiratory Exam: Clear to Auscultation Bilateral, NORMAL BREATHING PATTERN - Cardiovascular Exam Cardiovascular Exam: REGULAR RHYTHM, +S1, +S2 - GI/Abdominal Exam GI & Abdominal Exam: Distended, Guarding, Tenderness Additional comments: +ostomy - Extremities Exam Extremities exam: Positive for: normal inspection Results - Vital Signs Recent Vital Signs: Last Vital Signs Temp 99.6 F 01/24/18 15:09 Pulse 124 H 01/24/18 17:01 Resp 18 01/24/18 17:01 BP 113/62 01/24/18 17:01 Pulse Ox 98 01/24/18 17:01 - Labs Result Diagrams: 01/24/18 15:15 01/24/18 15:15 Labs: Laboratory Results - last 24 hr 01/24/18 01/24/18 01/24/18 15:15 15:15 15:15 WBC 2.8 L* RBC 4.79 Hgb 15.4 D Hct 45.9 MCV 95.8 MCH 32.2 MCHC 33.6 RDW 14.7 H Plt Count 219 MPV 10.3 Gran % 75.5 H Lymph % (Auto) 15.6 L [place] % (Auto) 8.9 H Eos % (Auto) 0.0 L Baso % (Auto) 0.0 Gran # 2.13 Lymph # (Auto) 0.4 L [place] # (Auto) 0.3 Eos # (Auto) 0.0 Baso # (Auto) 0.00 PT 17.4 H INR 1.51 H APTT 28.8 pO2 47 VBG pH 7.35 VBG pCO2 46.0 VBG HCO3 25.4 VBG Total CO2 26.8 VBG O2 Sat (Calc) 81.3 H VBG Base Excess -0.6 L VBG Potassium 4.4 Sodium 134.0 Chloride 93.0 L Glucose 145 H Lactate 6.7 H* FiO2 21.0 Potassium Carbon Dioxide Anion Gap BUN Creatinine Est GFR ( Amer) Est GFR (Non-Af Amer) Random Glucose Calcium Phosphorus Magnesium Total Bilirubin AST ALT Alkaline Phosphatase Total Protein Albumin Globulin Albumin/Globulin Ratio Venous Blood Potassium 4.4 Urine Color Urine Appearance Urine pH Ur Specific [place] Urine Protein Urine Glucose (UA) Urine Ketones Urine Blood Urine Nitrate Urine Bilirubin Urine Urobilinogen Ur Leukocyte Esterase Urine RBC Urine WBC Ur Epithelial Cells Hyaline Casts 01/24/18 01/24/18 01/24/18 15:15 15:55 17:14 WBC RBC Hgb Hct MCV MCH MCHC RDW Plt Count MPV Gran % Lymph % (Auto) [place] % (Auto) Eos % (Auto) Baso % (Auto) Gran # Lymph # (Auto) [place] # (Auto) Eos # (Auto) Baso # (Auto) PT INR APTT pO2 220 H VBG pH 7.49 H VBG pCO2 32.0 L VBG HCO3 24.4 VBG Total CO2 25.4 VBG O2 Sat (Calc) 99.6 H VBG Base Excess 1.7 VBG Potassium 4.1 Sodium 135 132.0 Chloride 93 L 101.0 Glucose 117 H Lactate 3.4 H FiO2 21.0 Potassium 4.3 Carbon Dioxide 26 Anion Gap 21 H BUN 51 H Creatinine 2.2 H Est GFR ( Amer) 26 Est GFR (Non-Af Amer) 21 Random Glucose 143 H Calcium 9.1 Phosphorus 6.4 H Magnesium 1.8 Total Bilirubin 0.7 AST 33 ALT 26 Alkaline Phosphatase 62 Total Protein 5.8 Albumin 3.1 Globulin 2.7 Albumin/Globulin Ratio 1.2 Venous Blood Potassium 4.1 Urine Color Yellow Urine Appearance Clear Urine pH 6.5 Ur Specific [place] 1.025 Urine Protein 30 H Urine Glucose (UA) Negative Urine Ketones Negative Urine Blood Negative Urine Nitrate Negative Urine Bilirubin Negative Urine Urobilinogen 0.2 Ur Leukocyte Esterase Negative Urine RBC Negative Urine WBC Negative Ur Epithelial Cells None Hyaline Casts 0 - 2 Assessment & Plan - Assessment and Plan (Free Text) Assessment: 82yo female a/w partial SBO SBO Afib Severe Sepsis Dehydration ARF - currently afebrile, HD stable, MAP 65-80, awake, alert, protecting airway - lactate 6.7-->3.4, after IVF bolus - NGT in placed and on suction - surgery consulted, recs noted - official CT A/P read pending Recommend: - supp o2 as needed - broad spectrum antibiotics, Vanco, Zosyn - IVF - check procal, UCx, BCx - Hold BP meds - monitor HH, check INR - keep NPO - NGT in place - follow up surgery - pain control - ID consult - Carido consult - GI ppx - DVT ppx - Monitor in MICU
[2018-01-24] MEDS ORDERED: metroNIDAZOLE IV 250mg/50 ml 250 MG/50 ML BAG IVPB SCH (18:00)
[2018-01-24] MEDS ORDERED: Morphine 2 mg/ml ISec IVP PRN (18:01)
[2018-01-24] MEDS ORDERED: Enoxaparin 30 mg Syringe SC SCH (18:15)
--- NOTE | 2018-01-24 18:28 | CP.PCM.HP ---
History of Present Illness - History of Present Illness History of Present Illness: Surgery H&P 82F pmhx colon ca w/ ostomy , SBO presents to [facility] from [facility] w/ coffee ground emesis and abdominal distention. Unable to get complete patient history due to baseline mentation. Pt has baseline dementia. Patient denies abdominal pain. Stoma is pink and has some solid output. In ED pt was found to be hypotensive and tachycardic. Code sepsis was called for lactate of 6.7-->3.4. Pt responded to fluid resuscitation. Admitted to ICU. CT shows portal gas. NGT was placed in ED. put out 1L. PMH: Alzhimer's dementia, colon ca s/p colon resection and ostomy formation, HTN , AFib, shingles, ABO PSH: Colon resection, ostomy formation SocialHx: Lives at [facility], denies ETOH, tobacco, recreational drug use Present on Admission - Present on Admission Any Indicators Present on Admission: Yes Urinary Catheter: Yes Review of Systems - Review of Systems Systems not reviewed;Unavailable: Dementia Past Patient History - Infectious Disease Hx of Infectious Diseases: None - Past Social History Smoking Status: Never Smoked - CARDIAC Hx Cardiac Disorders: Yes Hx Atrial Fibrillation: Yes Hx Cardia Arrhythmia: Yes Hx Hypertension: Yes - PULMONARY Hx Respiratory Disorders: No Hx Asthma: No Hx Bronchitis: No Hx Chronic Obstructive Pulmonary Disease (COPD): No Hx Emphysema: No Hx Pneumonia: No - NEUROLOGICAL Hx Neurological Disorder: Yes Hx Alzheimer's Disease: Yes Hx Dementia: Yes - HEENT Hx HEENT Problems: Yes Hx Cataracts: Yes Hx Glaucoma: Yes - RENAL Hx Chronic Kidney Disease: No - ENDOCRINE/METABOLIC Hx Endocrine Disorders: No - HEMATOLOGICAL/ONCOLOGICAL Hx Cancer: Yes Hx Chemotherapy: Yes Hx Shingles: Yes - INTEGUMENTARY Hx Dermatological Problems: No - MUSCULOSKELETAL/RHEUMATOLOGICAL Hx Musculoskeletal Disorders: Yes Hx Falls: Yes Hx Unsteady Gait: Yes - GASTROINTESTINAL Hx Colostomy: Yes (1999) - GENITOURINARY/GYNECOLOGICAL Hx Genitourinary Disorders: No - PSYCHIATRIC Hx Psychophysiologic Disorder: No Hx Substance Use: No - SURGICAL HISTORY Other/Comment: colostomy 1999 - ANESTHESIA Hx Anesthesia: Yes Hx Anesthesia Reactions: No Hx Malignant Hyperthermia: No Meds Allergies/Adverse Reactions: Allergies Allergy/AdvReac Type Severity Reaction Status Date / Time No Known Allergies Allergy Verified 01/24/18 15:04 Physical Exam - Constitutional Appears: In Acute Distress, Cachectic, Chronically Ill - Head Exam Head Exam: ATRAUMATIC, NORMAL INSPECTION, NORMOCEPHALIC - Eye Exam Eye Exam: EOMI, Normal appearance, PERRL Pupil Exam: NORMAL ACCOMODATION, PERRL - ENT Exam ENT Exam: Mucous Membranes Moist, Normal Exam - Neck Exam Neck exam: Positive for: Normal Inspection - Respiratory Exam Respiratory Exam: Clear to Auscultation Bilateral, NORMAL BREATHING PATTERN - Cardiovascular Exam Cardiovascular Exam: Tachycardia - GI/Abdominal Exam GI & Abdominal Exam: Distended, Firm, Hernia, Normal Bowel Sounds, Tenderness Additional comments: stoma pink, some stool in the bag - Extremities Exam Extremities exam: Positive for: normal inspection - Back Exam Back exam: NORMAL INSPECTION - Neurological Exam Neurological exam: Alert, CN II-XII Intact, Reflexes Normal - Skin Skin Exam: Dry, Intact, Warm Results - Vital Signs Recent Vital Signs: Last Vital Signs Temp 99.6 F 01/24/18 15:09 Pulse 128 H 01/24/18 18:14 Resp 18 01/24/18 18:14 BP 94/46 L 01/24/18 18:14 Pulse Ox 99 01/24/18 18:14 - Labs Result Diagrams: 01/24/18 15:15 01/24/18 15:15 Labs: Laboratory Results - last 24 hr 01/24/18 01/24/18 01/24/18 15:15 15:15 15:15 WBC 2.8 L* RBC 4.79 Hgb 15.4 D Hct 45.9 MCV 95.8 MCH 32.2 MCHC 33.6 RDW 14.7 H Plt Count 219 MPV 10.3 Gran % 75.5 H Lymph % (Auto) 15.6 L [place] % (Auto) 8.9 H Eos % (Auto) 0.0 L Baso % (Auto) 0.0 Gran # 2.13 Lymph # (Auto) 0.4 L [place] # (Auto) 0.3 Eos # (Auto) 0.0 Baso # (Auto) 0.00 PT 17.4 H INR 1.51 H APTT 28.8 pO2 47 VBG pH 7.35 VBG pCO2 46.0 VBG HCO3 25.4 VBG Total CO2 26.8 VBG O2 Sat (Calc) 81.3 H VBG Base Excess -0.6 L VBG Potassium 4.4 Sodium 134.0 Chloride 93.0 L Glucose 145 H Lactate 6.7 H* FiO2 21.0 Potassium Carbon Dioxide Anion Gap BUN Creatinine Est GFR ( Amer) Est GFR (Non-Af Amer) Random Glucose Calcium Phosphorus Magnesium Total Bilirubin AST ALT Alkaline Phosphatase Total Protein Albumin Globulin Albumin/Globulin Ratio Venous Blood Potassium 4.4 Urine Color Urine Appearance Urine pH Ur Specific [place] Urine Protein Urine Glucose (UA) Urine Ketones Urine Blood Urine Nitrate Urine Bilirubin Urine Urobilinogen Ur Leukocyte Esterase Urine RBC Urine WBC Ur Epithelial Cells Hyaline Casts 01/24/18 01/24/18 01/24/18 15:15 15:55 17:14 WBC RBC Hgb Hct MCV MCH MCHC RDW Plt Count MPV Gran % Lymph % (Auto) [place] % (Auto) Eos % (Auto) Baso % (Auto) Gran # Lymph # (Auto) [place] # (Auto) Eos # (Auto) Baso # (Auto) PT INR APTT pO2 220 H VBG pH 7.49 H VBG pCO2 32.0 L VBG HCO3 24.4 VBG Total CO2 25.4 VBG O2 Sat (Calc) 99.6 H VBG Base Excess 1.7 VBG Potassium 4.1 Sodium 135 132.0 Chloride 93 L 101.0 Glucose 117 H Lactate 3.4 H FiO2 21.0 Potassium 4.3 Carbon Dioxide 26 Anion Gap 21 H BUN 51 H Creatinine 2.2 H Est GFR ( Amer) 26 Est GFR (Non-Af Amer) 21 Random Glucose 143 H Calcium 9.1 Phosphorus 6.4 H Magnesium 1.8 Total Bilirubin 0.7 AST 33 ALT 26 Alkaline Phosphatase 62 Total Protein 5.8 Albumin 3.1 Globulin 2.7 Albumin/Globulin Ratio 1.2 Venous Blood Potassium 4.1 Urine Color Yellow Urine Appearance Clear Urine pH 6.5 Ur Specific [place] 1.025 Urine Protein 30 H Urine Glucose (UA) Negative Urine Ketones Negative Urine Blood Negative Urine Nitrate Negative Urine Bilirubin Negative Urine Urobilinogen 0.2 Ur Leukocyte Esterase Negative Urine RBC Negative Urine WBC Negative Ur Epithelial Cells None Hyaline Casts 0 - 2 Assessment & Plan - Assessment and Plan (Free Text) Assessment: Bowel obstruction with sepsis Lactate 6.7-> 3.4 DNR/DNI -NPO -IVF -ABX -Observe in ICU -Monitor VS -Trend lactate -ID consult -Medicine consult -Cardiology consult -DVT/GI ppx Will DW Dr. Varela
--- NOTE | 2018-01-24 18:53 | CT ---
CT abdomen and pelvis without IV contrast Indication: abd pain and distention r/o obstruction Technique: Contiguous axial images of the abdomen and pelvis. No oral or IV contrast given. Coronal and Sagittal reformats generated and reviewed. This CT exam was performed using 1 or more of the following dose reduction techniques: Automated exposure control, adjustment of the MAA and/or kV according to patient size, and/or use of iterative reconstruction technique. Radiation dose: Total exam DLP = 216.16 MGy-cm. Comparison: CT abdomen and pelvis without IV contrast performed 11/02/17 Findings: No visible consolidation, pleural effusion, or pneumothorax. Examination limited by lack of oral and IV contrast as well as paucity of intra-abdominal fat Extensive portal venous gas. Pneumatosis noted throughout numerous bowel loops. Dilated bowel loops consistent with small bowel obstruction. Transition point is unclear however location of obstruction is suspected at the site of ostomy/ parastomal hernia. Abdominal free air worrisome for perforated viscus. Cholelithiasis. The noncontrast spleen, kidneys, and adrenal glands appear grossly unremarkable. The pancreas is not well visualized. Decompressed urinary bladder precludes adequate evaluation. Evidence of Kaur catheter which extends far posteriorly ; correlate clinically to exclude possibility of placement in the vagina. Dense atherosclerotic calcifications. Multilevel degenerative changes of the osseous structures. Impression: Limited study as above. Extensive portal venous gas. Pneumatosis noted throughout numerous bowel loops. Dilated bowel loops consistent with small bowel obstruction. Transition point is unclear however location of obstruction is suspected at the site of left lower quadrant ostomy/ parastomal hernia. Abdominal free air worrisome for perforated viscus. Cholelithiasis. Decompressed urinary bladder precludes adequate evaluation. Evidence of Kaur catheter which extends far posteriorly ; correlate clinically to exclude possibility of placement in the vagina. Findings discussed with Dr. Montes De Oca on 01/24/18 at 5:35 p.m.
--- NOTE | 2018-01-24 19:44 | CP.PCM.PN ---
Subjective - Date & Time of Evaluation Date of Evaluation: 01/24/18 Time of Evaluation: 19:25 - Subjective Subjective: Patient re-evaluated in ICU. Discussed clinical status and course with NEETA Mason. Patient NEETA, who is a cousin, Quiana is currently out of the country and not reachable by numbers on file. Discussed with NEETA's , Mason, patient's overall prognosis is very poor and while surgery is generally the treatment for this diagnosis, patient's prior wishes is nonoperative management. The NEETA's and POA wishes to respect these wishes. Al did contact NEETA Araya who declines operative management to respects the patient's wishes. At this time will continue conservative management with IVFs. Trend lactate Q2 until normalizes. Fluid bolus as needed. NGT to continuous low suction. Strict intake and output. Appreciate ICU care and management. Discussed in length with Dr. Varela and surgical team. Overall prognosis is guarded. AKWhite PGY3 Objective - Vital Signs/Intake and Output Vital Signs (last 24 hours): Temp Pulse Resp BP Pulse Ox 99.6 F 128 H 18 94/46 L 99 01/24/18 15:09 01/24/18 18:14 01/24/18 18:14 01/24/18 18:14 01/24/18 18:14 Intake and Output: 01/24/18 01/25/18 18:59 06:59 Output Total 1100 Balance -1100 - Medications Medications: Current Medications Acetaminophen (Tylenol 325mg Tab) 650 mg PO Q6 PRN PRN Reason: Pain, Mild (1-3) Diltiazem HCl (Cardizem Cd) 120 mg PO DAILY KATY Enoxaparin Sodium (Lovenox) 30 mg SC Q12H KATY PRN Reason: Protocol Sodium Chloride (Sodium Chloride 0.9%) 1,000 mls @ 100 mls/hr IV .Q10H KATY Last Admin: 01/24/18 17:38 Dose: 100 mls/hr Sodium Chloride (Sodium Chloride 0.9%) 1,000 mls @ 100 mls/hr IV .Q10H KATY Last Admin: 01/24/18 17:38 Dose: 100 mls/hr Piperacillin Sod/Tazobactam Sod (Zosyn 2.25 Gm In 0.9% 100 Ml) 2.25 gm in 100 mls @ 100 mls/hr IVPB Q6 KATY PRN Reason: Protocol Stop: 01/25/18 00:59 Morphine Sulfate (Morphine) 2 mg IVP Q4H PRN PRN Reason: Pain, moderate (4-7) Ondansetron HCl (Zofran Inj) 4 mg IVP Q4 PRN PRN Reason: Nausea/Vomiting Pantoprazole Sodium (Protonix Inj) 40 mg IVP DAILY KATY - Labs Labs: PT 17.4 SECONDS (9.4-12.5) H 01/24/18 15:15 INR 1.51 (0.93-1.08) H 01/24/18 15:15 APTT 28.8 Seconds (25.1-36.5) 01/24/18 15:15
[2018-01-24] MEDS: Piperacillin/Tazobact 2.25gm 2.25 GM/100 ML BAG IVPB SCH (21:21)
--- NOTE | 2018-01-24 23:13 | CP.PCM.PN ---
Subjective - Date & Time of Evaluation Date of Evaluation: 01/24/18 Time of Evaluation: 23:05 - Subjective Subjective: Surgery Multiple attempts made to NEETA Torres at [phone] and NEETA's Al at [phone] this evening. Unable to get a hold of them at this time. Left messages regarding needing consents for possible interventions. Objective - Vital Signs/Intake and Output Vital Signs (last 24 hours): Temp Pulse Resp BP Pulse Ox 99.6 F 128 H 26 H 94/46 L 99 01/24/18 15:09 01/24/18 18:14 01/24/18 21:26 01/24/18 18:14 01/24/18 18:14 Intake and Output: 01/24/18 01/25/18 18:59 06:59 Output Total 1100 Balance -1100 - Medications Medications: Current Medications Acetaminophen (Tylenol 325mg Tab) 650 mg PO Q6 PRN PRN Reason: Pain, Mild (1-3) Diltiazem HCl (Cardizem Cd) 120 mg PO DAILY [facility] Enoxaparin Sodium (Lovenox) 30 mg SC Q12H KATY PRN Reason: Protocol Last Admin: 01/24/18 18:30 Dose: 30 mg Sodium Chloride (Sodium Chloride 0.9%) 1,000 mls @ 100 mls/hr IV .Q10H [facility] Last Admin: 01/24/18 17:38 Dose: 100 mls/hr Sodium Chloride (Sodium Chloride 0.9%) 1,000 mls @ 100 mls/hr IV .Q10H [facility] Last Admin: 01/24/18 17:38 Dose: 100 mls/hr Piperacillin Sod/Tazobactam Sod (Zosyn 2.25 Gm In 0.9% 100 Ml) 2.25 gm in 100 mls @ 100 mls/hr IVPB Q6 KATY PRN Reason: Protocol Stop: 01/25/18 00:59 Last Admin: 01/24/18 21:21 Dose: 100 mls/hr Acetaminophen (Ofirmev) 1,000 mg in 100 mls @ 400 mls/hr IVPB Q6H PRN PRN Reason: Pain, moderate (4-7) Stop: 01/26/18 23:03 Morphine Sulfate (Morphine) 2 mg IVP Q4H PRN PRN Reason: Pain, moderate (4-7) Ondansetron HCl (Zofran Inj) 4 mg IVP Q4 PRN PRN Reason: Nausea/Vomiting Pantoprazole Sodium (Protonix Inj) 40 mg IVP DAILY KATY - Labs Labs: PT 17.4 SECONDS (9.4-12.5) H 01/24/18 15:15 INR 1.51 (0.93-1.08) H 01/24/18 15:15 APTT 28.8 Seconds (25.1-36.5) 01/24/18 15:15
[2018-01-25] MEDS: Sodium Chloride 0.9% 1,000 ML IV SCH (01:12)
[2018-01-25] MEDS ORDERED: Sodium Chloride 0.9% 1,000 ML IV STA (02:46)
--- NOTE | 2018-01-25 03:59 | CP.PCM.PCO ---
Assessment & Plan - Assessment and Plan (Free Text) Assessment: Patient initially signed out to myself as a DNR/DNI. Chart reviewed and it appeared that the ophthalmology surgical technician discussed the case with the patient, POA's spouse and eventually POA who stated the patient would like to stay with conservative management and non-operative management. Patient was treated with IVF, IV Abx with the aim of making her comfortable. Patient's condition deteriorated overnight, however no aggressive intervention was performed because of her code status and wishes for conservative management. Received a call from the resident hall director Rolf Soliz at 3:42am stating she got in touch with the POA (apparently there had been some difficulty contacting them earlier) who is now amenable to surgical intervention and treatment. Given that the patient has been hypotensive despite IVF resuscitation, she will now require vasopressor support for what is now septic shock likely secondary to perforated viscous. We are now awaiting procedure consent from the POA prior to inserting central line so that she may be started on vasopressor support.
[2018-01-25] MEDS ORDERED: diltiaZEM IVPB 100mg in NS 100 ML IV PRN (04:56)
[2018-01-25] MEDS ORDERED: Vasopressin 20 UNITS in Dextrose 5% In Water 100 ML IV SCH (05:00)
[2018-01-25] MEDS ORDERED: Etomidate 20 mg/10ml Inj IV ONE (05:05)
[2018-01-25] MEDS ORDERED: ePHEDrine 50 mg/ml Inj ONE (05:08)
--- NOTE | 2018-01-25 05:28 | PCM.PROC ---
Procedures Attestation:: I certify that I have explained the specified Operation(s) or Procedure(s), risks, benefits and reasonable alternatives to the Patient and/or other person responsible. The opportunity was given to ask questions and all questions answered - Central Line Placement Right Femoral Triple Lumen Catheter Aseptic technique was employed throughout the procedure: Hand Hygiene done prior to procedure, Full sterile barriers (mask, hair cover, sterile gown, sterile gloves), Full body sterile drape, Chloraprep Antiseptic: 2 minute prep for Femoral CVP Time Out Performed: Yes Pt. Placed on Pulse Ox Monitor: Yes Central Line Prep: Chlorhexidine-Alcohol Combination Local Anesthesia Used: Lidocaine 1% Amount of Anesthesia Used (mls): 10 Ultrasound Used for Placement: Yes Central Line Lumen Inserted: triple Central Line Length: 20 cm Post Procedure: Sutured in Place, Good Blood Return, Sterile Dressing Applied Secured by: Securement device Post procedure dressing: Chlorhexidine disc (Biopatch) Post Procedure X-Ray: No Patient Tolerated Procedure: Well Immediate Complications: None Additional Comments: Consent obtained from POA. Supervised by skiing instructor
[2018-01-25 05:33] LABS: BASO # 0.01 K/mm3 (0.0-2.0); BASO % 0.5 % (0.0-3.0); GRAN # 1.54 (1.4-6.5); GRAN % 78.6 % (50.0-68.0); HEMOGLOBIN 11.3 g/dL (12.0-16.0); LYMPH # 0.3 (1.2-3.4); LYMPH % 15.8 % (22.0-35.0); MEAN CELL VOLUME 94.4 fl (80.0-105.0); MEAN CORPUSCULAR HEMOGLOBIN 31.5 pg (25.0-35.0); MEAN CORPUSCULAR HGB CONC 33.3 g/dl (31.0-37.0); MEAN PLATELET VOLUME 10.3 fl (7.0-11.0); MONO # 0.1 (0.1-0.6); MONO % 5.1 % (1.0-6.0); PLATELET COUNT 133 10^3/uL (120.0-450.0); RBC 3.59 10^6/uL (3.5-6.1); RED CELL DISTRIBUTION WIDTH 14.8 % (11.5-14.5)
--- NOTE | 2018-01-25 05:33 | CP.PCM.PN ---
Subjective - Date & Time of Evaluation Date of Evaluation: 01/25/18 Time of Evaluation: 05:31 - Subjective Subjective: Surgery Obtained consent from POA, POA spoke to patient over the phone. Both agreed for central line and operation. Witnessed by nursing staff. Planned for OR today. Pt seen and examined with attending. Plan DW Dr. Varela. Objective - Vital Signs/Intake and Output Vital Signs (last 24 hours): Temp Pulse Resp BP Pulse Ox 97.8 F 187 H 43 H 64/23 L 67 L 01/24/18 19:09 01/25/18 02:50 01/25/18 02:50 01/25/18 05:24 01/25/18 02:50 Intake and Output: 01/24/18 01/25/18 18:59 06:59 Output Total 1100 Balance -1100 - Medications Medications: Current Medications Acetaminophen (Tylenol 325mg Tab) 650 mg PO Q6 PRN PRN Reason: Pain, Mild (1-3) Diltiazem HCl (Cardizem Cd) 120 mg PO DAILY KATY Enoxaparin Sodium (Lovenox) 30 mg SC DAILY KATY PRN Reason: Protocol Sodium Chloride (Sodium Chloride 0.9%) 1,000 mls @ 100 mls/hr IV .Q10H KATY Last Admin: 01/25/18 01:12 Dose: 100 mls/hr Sodium Chloride (Sodium Chloride 0.9%) 1,000 mls @ 100 mls/hr IV .Q10H KATY Last Admin: 01/24/18 17:38 Dose: 100 mls/hr Acetaminophen (Ofirmev) 1,000 mg in 100 mls @ 400 mls/hr IVPB Q6H PRN PRN Reason: Pain, moderate (4-7) Stop: 01/26/18 23:03 Last Admin: 01/24/18 23:16 Dose: 400 mls/hr diltiaZEM IVPB 100mg in NS (Cardizem 100mg In Ns) 100 mls @ 5 mls/hr IV .Q20H PRN; Protocol; 5 MG/HR PRN Reason: TITRATE PER MD ORDER Vasopressin 20 units/ Dextrose 101 mls @ 9.09 mls/hr IV .Q11H7M KATY; 0.03 U/MIN PRN Reason: Protocol Last Admin: 01/25/18 05:24 Dose: 0.03 u/min, 9.09 mls/hr Phenylephrine HCl 40 mg/ (Sodium Chloride) 254 mls @ 38.1 mls/hr IV .Q6H40M PRN ; Protocol; 100 MCG/MIN PRN Reason: TITRATE PER MD ORDER Last Admin: 01/25/18 05:24 Dose: 100 mcg/min, 38.1 mls/hr Morphine Sulfate (Morphine) 2 mg IVP Q4H PRN PRN Reason: Pain, moderate (4-7) Ondansetron HCl (Zofran Inj) 4 mg IVP Q4 PRN PRN Reason: Nausea/Vomiting Pantoprazole Sodium (Protonix Inj) 40 mg IVP DAILY KATY - Labs Labs: PT 17.4 SECONDS (9.4-12.5) H 01/24/18 15:15 INR 1.51 (0.93-1.08) H 01/24/18 15:15 APTT 28.8 Seconds (25.1-36.5) 01/24/18 15:15
[2018-01-25 05:47] LABS: ALB/GLOB RATIO 0.9 (1.1-1.8); ALBUMIN 1.8 g/dL (3.0-4.8); CALCIUM 6.7 mg/dL (8.4-10.5)
[2018-01-25] MEDS: Piperacillin/Tazobact 2.25gm 2.25 GM/100 ML BAG IVPB SCH (05:58)
[2018-01-25] MEDS ORDERED: Meropenem 500 MG in Sodium Chloride 0.9% 100 ML IVPB SCH (06:00)
[2018-01-25] MEDS ORDERED: Meropenem 500 MG in Sodium Chloride 0.9% 50 ML IVPB SCH (06:35)
[2018-01-25 06:42] LABS: BAND 9 % (0-2); LYMPHOCYTE 16 % (22.0-35.0); MONOCYTE 8 % (1.0-6.0); MYELOCYTE 6 %; NEUTROPHIL 61 % (50.0-70.0); PLATELET ESTIMATE NORMAL (NORMAL)
[2018-01-25 06:43] LABS: LARGE PLATELETS PRESENT
[2018-01-25] MEDS ORDERED: Vancomycin 2 GM in Sodium Chloride 0.9% 500 ML IVPB ONE (07:00)
[2018-01-25] MEDS ORDERED: Morphine 2 mg/ml ISec IVP PRN (07:43)
--- NOTE | 2018-01-25 07:49 | PCM.SURG1 ---
Surgeon's Initial Post Op Note - Surgeon's Notes Surgeon: Dr. Varela Fire Inspector: Dr. Ferreira PGY3, Dr. Chavez PGY2, DR. Soliz PGY2 Type of Anesthesia: General Endo Pre-Operative Diagnosis: septic shock, SBO, portal venous gas Operative Findings: majority of SB necrosis, with some proximal viable. Dense adhesions. Large peristomal fascial defect with colostomy, dusky appearing. sucus fluid. Post-Operative Diagnosis: SBO, adhesions, necrtoic bowel, peristomal hernia Operation Performed: exploratory lapartomy, small bowel resection, bowel left in discontinuity, primary closure of peristomal hernia with prolene running stitch with primary closure of abdomen. Specimen/Specimens Removed: small bowel Estimated Blood Loss: EBL {In ML}: 20 Blood Products Given: N/A Drains Used: Michael (x2 RLQ, one in pelvis, one in right colic gutter) Post-Op Condition: Critical Date of Surgery/Procedure: 01/25/18 Time of Surgery/Procedure: 07:49
--- NOTE | 2018-01-25 08:03 | RAD ---
HISTORY: NGT placement COMPARISON: 01/24/2018. FINDINGS: The nasogastric tube terminates in the stomach. LUNGS: The lungs are well inflated and clear. PLEURA: No significant pleural effusion identified, no pneumothorax apparent. CARDIOVASCULAR: Normal. OSSEOUS STRUCTURES: No significant abnormalities. VISUALIZED UPPER ABDOMEN: Normal. OTHER FINDINGS: None. IMPRESSION: Nasogastric tube terminates in the stomach. No active pulmonary disease.
--- NOTE | 2018-01-25 08:05 | RAD ---
HISTORY: Sepsis Patient COMPARISON: CT chest without contrast from 01/21/2018. FINDINGS: LUNGS: The lungs are well inflated and clear. PLEURA: No significant pleural effusion identified, no pneumothorax apparent. CARDIOVASCULAR: Normal. OSSEOUS STRUCTURES: No significant abnormalities. VISUALIZED UPPER ABDOMEN: Normal. OTHER FINDINGS: None. IMPRESSION: No active pulmonary disease.
[2018-01-25] MEDS ORDERED: Albumin Human 25% (12.5 gm/50 ml) IV ONE ×4 (08:07→09:00)
--- NOTE | 2018-01-25 08:13 | RAD ---
HISTORY: abd pain r/o obstruction COMPARISON: CT scan same day FINDINGS: BOWEL: Severely dilated small bowel loops are seen. The stomach is also distended. Findings are better demonstrated on CT. BONES: Normal. OTHER FINDINGS: None. IMPRESSION: Severe small bowel obstruction
--- NOTE | 2018-01-25 08:13 | CP.CCUPN ---
<Mireya Mathew - Last Filed: 01/25/18 09:35> CCU Subjective - Physician Review Subjective (Free Text): 01/25/18 08:1Patient was admitted with septic shock due to perforated viscous. Patient's condition deteriorated and has to be taking to the OR. Patient was intubated for surgery. Patient was initially DNI/DNR with comfort care on presentation, however as per surgery team, patient's POA agreed to surgical management. Critical Care Time Spent (in minutes): 45 CCU Objective - Vital Signs / Intake & Output Vital Signs (Last 4 hours): Vital Signs BP 01/25/18 05:24 64/23 L Intake and Output (Last 8hrs): Intake & Output 01/24/18 01/25/18 01/25/18 22:59 06:59 14:59 Output Total 1100 Balance -1100 Output: Gastric Amount 1100 Stomach 1100 Other: Voiding Method Indwelling Catheter - Physical Exam Head: Positive for: Atraumatic, Normocephalic Pupils: Positive for: PERRL Extroacular Muscles: Positive for: EOMI Conjunctiva: Positive for: Normal Mouth: Positive for: Other (ETT) Neck: Positive for: Normal Range of Motion Respiratory/Chest: Positive for: Clear to Auscultation, Good Air Exchange. Negative for: Respiratory Distress, Accessory Muscle Use Cardiovascular: Positive for: Tachycardic Abdomen: Positive for: Tenderness, Distention, Rebound. Negative for: Guarding Back: Positive for: Normal Inspection Upper Extremity: Positive for: Normal Inspection. Negative for: Cyanosis, Edema Lower Extremity: Positive for: Normal Inspection. Negative for: Edema Neurological: Positive for: Other (intubated and sedated. ) Skin: Positive for: Warm, Dry, Normal Color. Negative for: Rashes - Medications Active Medications: Active Medications Generic Name Dose Route Start Last Admin Trade Name Freq PRN Reason Stop Dose Admin Acetaminophen 650 mg 01/25/18 00:00 Tylenol 325mg Tab PO Q6 PRN Pain, Mild (1-3) Albumin Human 12.5 gm 01/25/18 08:07 Albumin Human 25% (12.5 Gm/50 Ml) IV 01/25/18 08:08 ONCE ONE Albumin Human 12.5 gm 01/25/18 09:00 Albumin Human 25% (12.5 Gm/50 Ml) IV 01/25/18 09:01 ONCE ONE Diltiazem HCl 120 mg 01/25/18 10:00 Cardizem Cd PO DAILY KATY Enoxaparin Sodium 30 mg 01/25/18 10:00 Lovenox SC DAILY KATY Protocol Sodium Chloride 1,000 mls @ 100 mls/hr 01/24/18 16:30 01/25/18 01:12 Sodium Chloride 0.9% IV 100 mls/hr .Q10H KATY Administration Sodium Chloride 1,000 mls @ 100 mls/hr 01/24/18 17:45 01/24/18 17:38 Sodium Chloride 0.9% IV 100 mls/hr .Q10H KATY Administration Acetaminophen 1,000 mg in 100 mls @ 400 mls/hr 01/24/18 23:02 01/24/18 23:16 Ofirmev IVPB 01/26/18 23:03 400 mls/hr Q6H PRN Administration Pain, moderate (4-7) diltiaZEM IVPB 100mg in NS 100 mls @ 5 mls/hr 01/25/18 04:56 01/25/18 05:37 Cardizem 100mg In Ns IV 5 mg/hr .Q20H PRN 5 mls/hr TITRATE PER MD ORDER Administration Protocol 5 MG/HR Vasopressin 20 units/ Dextrose 101 mls @ 9.09 mls/hr 01/25/18 05:00 01/25/18 05:24 IV 0.03 u/min .Q11H7M KATY 9.09 mls/hr Protocol Administration 0.03 U/MIN Phenylephrine HCl 40 mg/ 254 mls @ 38.1 mls/hr 01/25/18 05:00 01/25/18 05:24 Sodium Chloride IV 100 mcg/min .Q6H40M PRN 38.1 mls/hr TITRATE PER MD ORDER Administration Protocol 100 MCG/MIN Vancomycin HCl 2 gm/ Sodium 500 mls @ 170 mls/hr 01/25/18 07:00 Chloride IVPB 01/25/18 09:56 ONCE ONE Protocol Meropenem 500 mg/ Sodium 50 mls @ 100 mls/hr 01/25/18 06:35 Chloride IVPB 02/01/18 06:01 Q12H KATY Protocol Morphine Sulfate 4 mg 01/25/18 07:43 Morphine IVP Q4H PRN Pain, moderate (4-7) Ondansetron HCl 4 mg 01/24/18 16:40 Zofran Inj IVP Q4 PRN Nausea/Vomiting Pantoprazole Sodium 40 mg 01/25/18 10:00 Protonix Inj IVP DAILY KATY - Patient Studies Lab Studies: Lab Studies 01/25/18 01/25/18 01/25/18 Range/Units 05:16 05:16 05:16 WBC 2.0 L* D (4.5-11.0) 10^3/ul RBC 3.59 (3.5-6.1) 10^6/uL Hgb 11.3 L D (12.0-16.0) g/dL Hct 33.9 L (36.0-48.0) % MCV 94.4 (80.0-105.0) fl MCH 31.5 (25.0-35.0) pg MCHC 33.3 (31.0-37.0) g/dl RDW 14.8 H (11.5-14.5) % Plt Count 133 (120.0-450.0) 10^3/uL MPV 10.3 (7.0-11.0) fl Gran % 78.6 H (50.0-68.0) % Lymph % (Auto) 15.8 L (22.0-35.0) % [place] % (Auto) 5.1 (1.0-6.0) % Eos % (Auto) 0.0 L (1.5-5.0) % Baso % (Auto) 0.5 (0.0-3.0) % Gran # 1.54 (1.4-6.5) Lymph # (Auto) 0.3 L (1.2-3.4) [place] # (Auto) 0.1 (0.1-0.6) Eos # (Auto) 0.0 (0.0-0.7) Baso # (Auto) 0.01 (0.0-2.0) K/mm3 Neutrophils % (Manual) 61 (50.0-70.0) % Band Neutrophils % 9 H (0-2) % Lymphocytes % (Manual) 16 L (22.0-35.0) % Monocytes % (Manual) 8 H (1.0-6.0) % Myelocytes % 6 % Platelet Evaluation Normal (NORMAL) Large Platelets Present Sodium 139 (132-148) mmol/L Potassium 4.0 (3.6-5.0) mmol/L Chloride 105 (98-107) mmol/L Carbon Dioxide 24 (21-33) mmol/L Anion Gap 14 (10-20) BUN 54 H (7-21) mg/dL Creatinine 2.2 H (0.7-1.2) mg/dl Est GFR ( Amer) 26 Est GFR (Non-Af Amer) 21 Random Glucose 58 L (70-110) mg/dL Lactic Acid 2.1 (0.7-2.1) mmol/L Calcium 6.7 L* (8.4-10.5) mg/dL Total Bilirubin 0.5 (0.2-1.3) mg/dL AST 48 H D (14-36) U/L ALT 36 (7-56) U/L Alkaline Phosphatase 44 (38-126) U/L Total Protein 3.9 L (5.8-8.3) g/dL Albumin 1.8 L (3.0-4.8) g/dL Globulin 2.1 gm/dL Albumin/Globulin Ratio 0.9 L (1.1-1.8) Blood Type Antibody Screen Crossmatch BBK History Checked 01/24/18 01/24/18 Range/Units 23:09 20:07 WBC (4.5-11.0) 10^3/ul RBC (3.5-6.1) 10^6/uL Hgb (12.0-16.0) g/dL Hct (36.0-48.0) % MCV (80.0-105.0) fl MCH (25.0-35.0) pg MCHC (31.0-37.0) g/dl RDW (11.5-14.5) % Plt Count (120.0-450.0) 10^3/uL MPV (7.0-11.0) fl Gran % (50.0-68.0) % Lymph % (Auto) (22.0-35.0) % [place] % (Auto) (1.0-6.0) % Eos % (Auto) (1.5-5.0) % Baso % (Auto) (0.0-3.0) % Gran # (1.4-6.5) Lymph # (Auto) (1.2-3.4) [place] # (Auto) (0.1-0.6) Eos # (Auto) (0.0-0.7) Baso # (Auto) (0.0-2.0) K/mm3 Neutrophils % (Manual) (50.0-70.0) % Band Neutrophils % (0-2) % Lymphocytes % (Manual) (22.0-35.0) % Monocytes % (Manual) (1.0-6.0) % Myelocytes % % Platelet Evaluation (NORMAL) Large Platelets Sodium (132-148) mmol/L Potassium (3.6-5.0) mmol/L Chloride (98-107) mmol/L Carbon Dioxide (21-33) mmol/L Anion Gap (10-20) BUN (7-21) mg/dL Creatinine (0.7-1.2) mg/dl Est GFR ( Amer) Est GFR (Non-Af Amer) Random Glucose (70-110) mg/dL Lactic Acid 4.2 H* (0.7-2.1) mmol/L Calcium (8.4-10.5) mg/dL Total Bilirubin (0.2-1.3) mg/dL AST (14-36) U/L ALT (7-56) U/L Alkaline Phosphatase (38-126) U/L Total Protein (5.8-8.3) g/dL Albumin (3.0-4.8) g/dL Globulin gm/dL Albumin/Globulin Ratio (1.1-1.8) Blood Type B POSITIVE Antibody Screen Negative Crossmatch See Detail BBK History Checked Patient has bt Laboratory Results - last 24 hr 01/24/18 01/24/18 01/25/18 20:07 23:09 05:16 WBC 2.0 L* D RBC 3.59 Hgb 11.3 L D Hct 33.9 L MCV 94.4 MCH 31.5 MCHC 33.3 RDW 14.8 H Plt Count 133 MPV 10.3 Gran % 78.6 H Lymph % (Auto) 15.8 L [place] % (Auto) 5.1 Eos % (Auto) 0.0 L Baso % (Auto) 0.5 Gran # 1.54 Lymph # (Auto) 0.3 L [place] # (Auto) 0.1 Eos # (Auto) 0.0 Baso # (Auto) 0.01 Neutrophils % (Manual) 61 Band Neutrophils % 9 H Lymphocytes % (Manual) 16 L Monocytes % (Manual) 8 H Myelocytes % 6 Platelet Evaluation Normal Large Platelets Present Sodium Potassium Chloride Carbon Dioxide Anion Gap BUN Creatinine Est GFR ( Amer) Est GFR (Non-Af Amer) Random Glucose Lactic Acid 4.2 H* Calcium Total Bilirubin AST ALT Alkaline Phosphatase Total Protein Albumin Globulin Albumin/Globulin Ratio Blood Type B POSITIVE Antibody Screen Negative Crossmatch See Detail BBK History Checked Patient has bt 01/25/18 01/25/18 05:16 05:16 WBC RBC Hgb Hct MCV MCH MCHC RDW Plt Count MPV Gran % Lymph % (Auto) [place] % (Auto) Eos % (Auto) Baso % (Auto) Gran # Lymph # (Auto) [place] # (Auto) Eos # (Auto) Baso # (Auto) Neutrophils % (Manual) Band Neutrophils % Lymphocytes % (Manual) Monocytes % (Manual) Myelocytes % Platelet Evaluation Large Platelets Sodium 139 Potassium 4.0 Chloride 105 Carbon Dioxide 24 Anion Gap 14 BUN 54 H Creatinine 2.2 H Est GFR ( Amer) 26 Est GFR (Non-Af Amer) 21 Random Glucose 58 L Lactic Acid 2.1 Calcium 6.7 L* Total Bilirubin 0.5 AST 48 H D ALT 36 Alkaline Phosphatase 44 Total Protein 3.9 L Albumin 1.8 L Globulin 2.1 Albumin/Globulin Ratio 0.9 L Blood Type Antibody Screen Crossmatch BBK History Checked Critical Care Progress Note - Ventilator Checklist Head of Bed 30 Degrees: Yes Daily Sedation Vacation: Yes Daily Assessment of Readiness to Wean: Yes Daily Spontaneous Breathing Trial: Yes PUD Prophalyxis: Yes DVT Prophylaxis: Yes Oral Care with Chlorhexidine Gluconate {CHG}: Yes - Vent Settings MODE:: PRVC TIDAL VOLUME:: 350 RESP RATE:: 15 FIO2:: 50 PEEP:: 5 - Extremities/Vascular Does the Patient have a Central Venous Catheter?: Yes Does the Patient need a Central Venous Catheter?: Yes Does the Patient have a Kaur Catheter?: Yes Does the Patient need a Kaur Catheter?: Yes Catheter Insertion Criteria: Need for accurate measurement of output in critically ill patient - Restraints Justification for Restraints: High risk for self extubation - Prophylaxis GI Prophylaxis GI: PPI - Prophylaxis DVT Prophylaxis DVT: SCDs - Nutrition Nutrition: Nutrition Category Date Time Status NPO Diet [DIET] Diets 01/24/18 Dinner Ordered Assessment/Plan - Assessment and Plan (Free Text) Assessment: Patient is an 82yo female admitted with septic shock due to possible perforated viscus. Patient was taking to the OR overnight due to deterioration of the condition and was started on pressors. Plan: Neuro: sedated on fentanyl and propofol, post operatively. Pulm: S/p intubation for surgery Will assess mental status, patient is still in septic shock, Will assess readiness to wean off of vent, pulm toileting, head of bed above 35 degrees. Protective lung ventilation strategies. Will obtain chest x-ray and ABG. Cardio: septic shock, will change phenylepherine and vassopressin to levophed and stress dose solucortef. Maintain MAP above 65 degrees. Gi: h/o colon cancer with ostomy, presented with bowel obstruction with perforated viscus. 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 NPO as per surgery ppi Surgery following, post op wound care as per surgery Renal: PHIL likely pre, with lactic acidosis due to organ hypoperfusion- will continue to trend lactic acid. Will give ivf- NS to 150 ml/hr. Monitor I&os. ID: Septic shock with perforated viscus as the source. s/p surgery. Cultures pending Patient is neutropenic and afebrile. On merrem and vanco, ID following. Endo: Patient had an episode of hypoglycemia this am, will obtain fingertsick, and change fluid to D5, and give D50. Fingerstick q4 hours. patient is currently npo post operatively. Heme: H/h stable, will continue to monitor. Patient's code status is currently unknown, will attempt to reach family, as patient remains in critical condition. DVT prophylaxis: Mechanical compressive devices. Patient seen,examined and case discussed with the tour bus driver. - Date & Time Date: 01/25/18 Time: 09:55 <Kael Heller - Last Filed: 01/25/18 10:11> CCU Objective - Vital Signs / Intake & Output Intake and Output (Last 8hrs): Intake & Output 01/24/18 01/25/18 01/25/18 22:59 06:59 14:59 Output Total 1100 Balance -1100 Output: Gastric Amount 1100 Stomach 1100 Other: Voiding Method Indwelling Catheter - Medications Active Medications: Active Medications Generic Name Dose Route Start Last Admin Trade Name Freq PRN Reason Stop Dose Admin Hydrocortisone Sodium Succinate 50 mg 01/25/18 12:00 Solu-Cortef IVP Q6 KATY Acetaminophen 1,000 mg in 100 mls @ 400 mls/hr 01/24/18 23:02 01/24/18 23:16 Ofirmev IVPB 01/26/18 23:03 400 mls/hr Q6H PRN Administration Pain, moderate (4-7) Meropenem 500 mg/ Sodium 50 mls @ 100 mls/hr 01/25/18 06:35 Chloride IVPB 02/01/18 06:01 Q12H KATY Protocol Fentanyl Citrate 1,000 mcg in 100 mls @ 2 mls/hr 01/25/18 08:15 Fentanyl Citrate/Sodium Chloride 1 Mg/100 Ml IV .Q24H PRN TITRATE PER MD ORDER Protocol 20 MCG/HR Propofol 1,000 mg in 100 mls @ 1.565 mls/hr 01/25/18 08:15 Diprivan IV .Q24H PRN TITRATE PER MD ORDER Protocol 5 MCG/KG/MIN Linezolid 600 mg in 300 mls @ 200 mls/hr 01/25/18 10:00 Zyvox 600mg/300ml D5w IVPB 02/01/18 10:01 Q12 KATY Protocol Sodium Chloride 1,000 mls @ 150 mls/hr 01/25/18 09:20 Sodium Chloride 0.9% IV .Q6H40M KATY NOREPINEPHRINE BIT/0.9 % NACL 4 mg in 250 mls @ 15 mls/hr 01/25/18 09:21 Levophed 4 Mg/ 250 Ml Ns Premixed IV .[id number] PRN TITRATE PER MD ORDER Protocol 4 MCG/MIN Potassium Chloride 10 meq in 100 mls @ 50 mls/hr 01/25/18 10:00 Potassium Chloride 10 Meq/100 Ml IVPB 01/25/18 13:59 Q2H KATY Pantoprazole Sodium 40 mg 01/25/18 10:00 Protonix Inj IVP DAILY KATY - Patient Studies Lab Studies: Lab Studies 01/25/18 01/25/18 01/25/18 Range/Units 09:40 09:40 09:35 WBC 1.5 L* D (4.5-11.0) 10^3/ul RBC 3.62 (3.5-6.1) 10^6/uL Hgb 11.6 L (12.0-16.0) g/dL Hct 34.6 L (36.0-48.0) % MCV 95.6 (80.0-105.0) fl MCH 32.0 (25.0-35.0) pg MCHC 33.5 (31.0-37.0) g/dl RDW 14.9 H (11.5-14.5) % Plt Count 142 (120.0-450.0) 10^3/uL MPV 10.2 (7.0-11.0) fl Gran % 80.0 H (50.0-68.0) % Lymph % (Auto) 13.1 L (22.0-35.0) % [place] % (Auto) 6.2 H (1.0-6.0) % Eos % (Auto) 0.0 L (1.5-5.0) % Baso % (Auto) 0.7 (0.0-3.0) % Gran # 1.16 L (1.4-6.5) Lymph # (Auto) 0.2 L (1.2-3.4) [place] # (Auto) 0.1 (0.1-0.6) Eos # (Auto) 0.0 (0.0-0.7) Baso # (Auto) 0.01 (0.0-2.0) K/mm3 Neutrophils % (Manual) (50.0-70.0) % Band Neutrophils % (0-2) % Lymphocytes % (Manual) (22.0-35.0) % Monocytes % (Manual) (1.0-6.0) % Myelocytes % % Platelet Evaluation (NORMAL) Large Platelets pCO2 34 L (35-45) mm/Hg pO2 194.0 H (80-100) mm/Hg HCO3 17.1 L (21-28) mmol/L ABG pH 7.31 L (7.35-7.45) ABG Total CO2 18.1 L (22-28) mmol.L ABG O2 Saturation 98.9 H (95-98) % ABG Base Excess -8.2 L (-2.0-3.0) mmol/L ABG Potassium 3.3 L (3.6-5.2) mmol/L Glucose 220 H (65-105) mg/dl Lactate 2.7 H (0.7-2.1) mmol/L Mechanical Rate 15 FiO2 50.0 % Tidal Volume 350 PEEP 5 Sodium 137 136.0 (132-148) mmol/L Potassium 3.8 (3.6-5.0) mmol/L Chloride 107 111.0 H (98-107) mmol/L Carbon Dioxide 22 (21-33) mmol/L Anion Gap 12 (10-20) BUN 50 H (7-21) mg/dL Creatinine (0.7-1.2) mg/dl Est GFR ( Amer) Est GFR (Non-Af Amer) POC Glucose (mg/dL) (65-110) mg/dL Random Glucose 202 H (70-110) mg/dL Lactic Acid (0.7-2.1) mmol/L Calcium 6.2 L* (8.4-10.5) mg/dL Phosphorus 6.8 H (2.5-4.5) mg/dL Magnesium 1.6 L (1.7-2.2) mg/dL Total Bilirubin 0.5 (0.2-1.3) mg/dL AST 55 H (14-36) U/L ALT 37 (7-56) U/L Alkaline Phosphatase 41 (38-126) U/L Total Protein 3.5 L (5.8-8.3) g/dL Albumin 1.6 L (3.0-4.8) g/dL Globulin 1.9 gm/dL Albumin/Globulin Ratio 0.8 L (1.1-1.8) Arterial Blood Potassium 3.3 L (3.6-5.2) mmol/L Blood Type Antibody Screen Crossmatch BBK History Checked 01/25/18 01/25/18 01/25/18 Range/Units 08:48 05:16 05:16 WBC (4.5-11.0) 10^3/ul RBC (3.5-6.1) 10^6/uL Hgb (12.0-16.0) g/dL Hct (36.0-48.0) % MCV (80.0-105.0) fl MCH (25.0-35.0) pg MCHC (31.0-37.0) g/dl RDW (11.5-14.5) % Plt Count (120.0-450.0) 10^3/uL MPV (7.0-11.0) fl Gran % (50.0-68.0) % Lymph % (Auto) (22.0-35.0) % [place] % (Auto) (1.0-6.0) % Eos % (Auto) (1.5-5.0) % Baso % (Auto) (0.0-3.0) % Gran # (1.4-6.5) Lymph # (Auto) (1.2-3.4) [place] # (Auto) (0.1-0.6) Eos # (Auto) (0.0-0.7) Baso # (Auto) (0.0-2.0) K/mm3 Neutrophils % (Manual) (50.0-70.0) % Band Neutrophils % (0-2) % Lymphocytes % (Manual) (22.0-35.0) % Monocytes % (Manual) (1.0-6.0) % Myelocytes % % Platelet Evaluation (NORMAL) Large Platelets pCO2 (35-45) mm/Hg pO2 (80-100) mm/Hg HCO3 (21-28) mmol/L ABG pH (7.35-7.45) ABG Total CO2 (22-28) mmol.L ABG O2 Saturation (95-98) % ABG Base Excess (-2.0-3.0) mmol/L ABG Potassium (3.6-5.2) mmol/L Glucose (65-105) mg/dl Lactate (0.7-2.1) mmol/L Mechanical Rate FiO2 % Tidal Volume PEEP Sodium 139 (132-148) mmol/L Potassium 4.0 (3.6-5.0) mmol/L Chloride 105 (98-107) mmol/L Carbon Dioxide 24 (21-33) mmol/L Anion Gap 14 (10-20) BUN 54 H (7-21) mg/dL Creatinine 2.2 H (0.7-1.2) mg/dl Est GFR ( Amer) 26 Est GFR (Non-Af Amer) 21 POC Glucose (mg/dL) 41 L (65-110) mg/dL Random Glucose 58 L (70-110) mg/dL Lactic Acid 2.1 (0.7-2.1) mmol/L Calcium 6.7 L* (8.4-10.5) mg/dL Phosphorus (2.5-4.5) mg/dL Magnesium (1.7-2.2) mg/dL Total Bilirubin 0.5 (0.2-1.3) mg/dL AST 48 H D (14-36) U/L ALT 36 (7-56) U/L Alkaline Phosphatase 44 (38-126) U/L Total Protein 3.9 L (5.8-8.3) g/dL Albumin 1.8 L (3.0-4.8) g/dL Globulin 2.1 gm/dL Albumin/Globulin Ratio 0.9 L (1.1-1.8) Arterial Blood Potassium (3.6-5.2) mmol/L Blood Type Antibody Screen Crossmatch BBK History Checked 01/25/18 01/24/18 01/24/18 Range/Units 05:16 23:09 20:07 WBC 2.0 L* D (4.5-11.0) 10^3/ul RBC 3.59 (3.5-6.1) 10^6/uL Hgb 11.3 L D (12.0-16.0) g/dL Hct 33.9 L (36.0-48.0) % MCV 94.4 (80.0-105.0) fl MCH 31.5 (25.0-35.0) pg MCHC 33.3 (31.0-37.0) g/dl RDW 14.8 H (11.5-14.5) % Plt Count 133 (120.0-450.0) 10^3/uL MPV 10.3 (7.0-11.0) fl Gran % 78.6 H (50.0-68.0) % Lymph % (Auto) 15.8 L (22.0-35.0) % [place] % (Auto) 5.1 (1.0-6.0) % Eos % (Auto) 0.0 L (1.5-5.0) % Baso % (Auto) 0.5 (0.0-3.0) % Gran # 1.54 (1.4-6.5) Lymph # (Auto) 0.3 L (1.2-3.4) [place] # (Auto) 0.1 (0.1-0.6) Eos # (Auto) 0.0 (0.0-0.7) Baso # (Auto) 0.01 (0.0-2.0) K/mm3 Neutrophils % (Manual) 61 (50.0-70.0) % Band Neutrophils % 9 H (0-2) % Lymphocytes % (Manual) 16 L (22.0-35.0) % Monocytes % (Manual) 8 H (1.0-6.0) % Myelocytes % 6 % Platelet Evaluation Normal (NORMAL) Large Platelets Present pCO2 (35-45) mm/Hg pO2 (80-100) mm/Hg HCO3 (21-28) mmol/L ABG pH (7.35-7.45) ABG Total CO2 (22-28) mmol.L ABG O2 Saturation (95-98) % ABG Base Excess (-2.0-3.0) mmol/L ABG Potassium (3.6-5.2) mmol/L Glucose (65-105) mg/dl Lactate (0.7-2.1) mmol/L Mechanical Rate FiO2 % Tidal Volume PEEP Sodium (132-148) mmol/L Potassium (3.6-5.0) mmol/L Chloride (98-107) mmol/L Carbon Dioxide (21-33) mmol/L Anion Gap (10-20) BUN (7-21) mg/dL Creatinine (0.7-1.2) mg/dl Est GFR ( Amer) Est GFR (Non-Af Amer) POC Glucose (mg/dL) (65-110) mg/dL Random Glucose (70-110) mg/dL Lactic Acid 4.2 H* (0.7-2.1) mmol/L Calcium (8.4-10.5) mg/dL Phosphorus (2.5-4.5) mg/dL Magnesium (1.7-2.2) mg/dL Total Bilirubin (0.2-1.3) mg/dL AST (14-36) U/L ALT (7-56) U/L Alkaline Phosphatase (38-126) U/L Total Protein (5.8-8.3) g/dL Albumin (3.0-4.8) g/dL Globulin gm/dL Albumin/Globulin Ratio (1.1-1.8) Arterial Blood Potassium (3.6-5.2) mmol/L Blood Type B POSITIVE Antibody Screen Negative Crossmatch See Detail BBK History Checked Patient has bt Laboratory Results - last 24 hr 01/24/18 01/24/18 01/25/18 20:07 23:09 05:16 WBC 2.0 L* D RBC 3.59 Hgb 11.3 L D Hct 33.9 L MCV 94.4 MCH 31.5 MCHC 33.3 RDW 14.8 H Plt Count 133 MPV 10.3 Gran % 78.6 H Lymph % (Auto) 15.8 L [place] % (Auto) 5.1 Eos % (Auto) 0.0 L Baso % (Auto) 0.5 Gran # 1.54 Lymph # (Auto) 0.3 L [place] # (Auto) 0.1 Eos # (Auto) 0.0 Baso # (Auto) 0.01 Neutrophils % (Manual) 61 Band Neutrophils % 9 H Lymphocytes % (Manual) 16 L Monocytes % (Manual) 8 H Myelocytes % 6 Platelet Evaluation Normal Large Platelets Present pCO2 pO2 HCO3 ABG pH ABG Total CO2 ABG O2 Saturation ABG Base Excess ABG Potassium Glucose Lactate Mechanical Rate FiO2 Tidal Volume PEEP Sodium Potassium Chloride Carbon Dioxide Anion Gap BUN Creatinine Est GFR ( Amer) Est GFR (Non-Af Amer) POC Glucose (mg/dL) Random Glucose Lactic Acid 4.2 H* Calcium Phosphorus Magnesium Total Bilirubin AST ALT Alkaline Phosphatase Total Protein Albumin Globulin Albumin/Globulin Ratio Arterial Blood Potassium Blood Type B POSITIVE Antibody Screen Negative Crossmatch See Detail BBK History Checked Patient has bt 01/25/18 01/25/18 01/25/18 05:16 05:16 08:48 WBC RBC Hgb Hct MCV MCH MCHC RDW Plt Count MPV Gran % Lymph % (Auto) [place] % (Auto) Eos % (Auto) Baso % (Auto) Gran # Lymph # (Auto) [place] # (Auto) Eos # (Auto) Baso # (Auto) Neutrophils % (Manual) Band Neutrophils % Lymphocytes % (Manual) Monocytes % (Manual) Myelocytes % Platelet Evaluation Large Platelets pCO2 pO2 HCO3 ABG pH ABG Total CO2 ABG O2 Saturation ABG Base Excess ABG Potassium Glucose Lactate Mechanical Rate FiO2 Tidal Volume PEEP Sodium 139 Potassium 4.0 Chloride 105 Carbon Dioxide 24 Anion Gap 14 BUN 54 H Creatinine 2.2 H Est GFR ( Amer) 26 Est GFR (Non-Af Amer) 21 POC Glucose (mg/dL) 41 L Random Glucose 58 L Lactic Acid 2.1 Calcium 6.7 L* Phosphorus Magnesium Total Bilirubin 0.5 AST 48 H D ALT 36 Alkaline Phosphatase 44 Total Protein 3.9 L Albumin 1.8 L Globulin 2.1 Albumin/Globulin Ratio 0.9 L Arterial Blood Potassium Blood Type Antibody Screen Crossmatch BBK History Checked 01/25/18 01/25/18 01/25/18 09:35 09:40 09:40 WBC 1.5 L* D RBC 3.62 Hgb 11.6 L Hct 34.6 L MCV 95.6 MCH 32.0 MCHC 33.5 RDW 14.9 H Plt Count 142 MPV 10.2 Gran % 80.0 H Lymph % (Auto) 13.1 L [place] % (Auto) 6.2 H Eos % (Auto) 0.0 L Baso % (Auto) 0.7 Gran # 1.16 L Lymph # (Auto) 0.2 L [place] # (Auto) 0.1 Eos # (Auto) 0.0 Baso # (Auto) 0.01 Neutrophils % (Manual) Band Neutrophils % Lymphocytes % (Manual) Monocytes % (Manual) Myelocytes % Platelet Evaluation Large Platelets pCO2 34 L pO2 194.0 H HCO3 17.1 L ABG pH 7.31 L ABG Total CO2 18.1 L ABG O2 Saturation 98.9 H ABG Base Excess -8.2 L ABG Potassium 3.3 L Glucose 220 H Lactate 2.7 H Mechanical Rate 15 FiO2 50.0 Tidal Volume 350 PEEP 5 Sodium 136.0 137 Potassium 3.8 Chloride 111.0 H 107 Carbon Dioxide 22 Anion Gap 12 BUN 50 H Creatinine Est GFR ( Amer) Est GFR (Non-Af Amer) POC Glucose (mg/dL) Random Glucose 202 H Lactic Acid Calcium 6.2 L* Phosphorus 6.8 H Magnesium 1.6 L Total Bilirubin 0.5 AST 55 H ALT 37 Alkaline Phosphatase 41 Total Protein 3.5 L Albumin 1.6 L Globulin 1.9 Albumin/Globulin Ratio 0.8 L Arterial Blood Potassium 3.3 L Blood Type Antibody Screen Crossmatch BBK History Checked Critical Care Progress Note - Nutrition Nutrition: Nutrition Category Date Time Status NPO Diet [DIET] Diets 01/24/18 Dinner Ordered Assessment/Plan - Assessment and Plan (Free Text) Plan: Patient seen and examined on rounds with resident, agree with note following additions exceptions: Pt is 82yo female a/w SBO, with ruptured viscous, necrosis of SB, s/p ex lap, SB resection. Currently hypothermic, hypotensive on vasopressor support, on ventilator in septic shock. On broad spectrum antibiotics, ID following. Post ope labs pending, ABG, CXR pending. SBO Afib Septic Shock Dehydration ARF Perforated Viscous s.p ex lap Recommend: - cont with ventilatory support, low tidal vol ventilation, obtain ABG and CXR - broad spectrum antibiotics, Vanco, Merrem, follow up ID, follow up cultures - IVF, would bolus 1L NS, repeat HH - keep NPO, NGT to suction, as per surgery - repeat CBC, CMP, ABG - stress dose steroids SoluCortef 50mg Q6hr - Switch Neosynephrine to Levoped, cont with Vasopresisn - follow up surgery - patient was initially DNR/DNI, but code status reversed for the OR as per surgery, need to clarify post op code status, multiple attempts have been made to reach NEETA Araya, but as per her she is in [place] and is unreachable at the moment, will attempt again - DVT ppx - GI ppx - Patient at high risk for morbidity and mortality, poor prognosis, remains critically ill - Monitor in MICU Critical care time 45 minutes
[2018-01-25] MEDS ORDERED: Propofol 10 mg/ml 1,000 MG/100 ML VIAL IV PRN (08:15)
[2018-01-25] MEDS ORDERED: Fentanyl 1000mcg/100ml NS 1,000 MCG/100 ML BAG IV PRN (08:15)
[2018-01-25] MEDS ORDERED: Dextrose 50% SYRINGE Inj (50 ml) ONE (08:49)
--- NOTE | 2018-01-25 09:13 | CARD ---
APPROVED REPORT EKG Measurement Heart [id number] <Conclusion> Multifocal Atrial Tachycardia. Low voltage QRS Poor R Progression V1-V3.
[2018-01-25] MEDS ORDERED: Sodium Chloride 0.9% 1,000 ML IV SCH (09:20)
[2018-01-25] MEDS ORDERED: NOREPINEPHRINE BIT/0.9 % NACL 4 MG/250 ML BAG IV PRN (09:21)
[2018-01-25] MEDS ORDERED: Dextrose 50% SYRINGE Inj (50 ml) IVP ONE (09:33)
[2018-01-25 09:42] LABS: ARTERIAL BLOOD GAS HCO3 17.1 mmol/L (21-28); ARTERIAL BLOOD GAS O2 SAT 98.9 % (95-98); ARTERIAL BLOOD GAS PCO2 34 mm/Hg (35-45); ARTERIAL BLOOD GAS PH 7.31 (7.35-7.45); ARTERIAL BLOOD GAS TCO2 18.1 mmol.L (22-28)
[2018-01-25] MEDS ORDERED: Linezolid 600 mg in D5W 300 ml 600 MG/300 ML BAG IVPB SCH (10:00)
[2018-01-25] MEDS ORDERED: Enoxaparin 30 mg Syringe SC SCH (10:00)
[2018-01-25] MEDS ORDERED: diltiaZEM 120 mg/24 Hours CD Cap PO SCH (10:00)
[2018-01-25 10:02] LABS: BASO # 0.01 K/mm3 (0.0-2.0); BASO % 0.7 % (0.0-3.0); GRAN # 1.16 (1.4-6.5); HEMOGLOBIN 11.6 g/dL (12.0-16.0); LYMPH # 0.2 (1.2-3.4); LYMPH % 13.1 % (22.0-35.0); MEAN CELL VOLUME 95.6 fl (80.0-105.0); MEAN CORPUSCULAR HGB CONC 33.5 g/dl (31.0-37.0); MEAN PLATELET VOLUME 10.2 fl (7.0-11.0); MONO # 0.1 (0.1-0.6); MONO % 6.2 % (1.0-6.0); RBC 3.62 10^6/uL (3.5-6.1); RED CELL DISTRIBUTION WIDTH 14.9 % (11.5-14.5)
[2018-01-25 10:04] LABS: ALB/GLOB RATIO 0.8 (1.1-1.8); ALBUMIN 1.6 g/dL (3.0-4.8); CALCIUM 6.2 mg/dL (8.4-10.5)
[2018-01-25 10:05] LABS: WHITE BLOOD COUNT 1.5 10^3/ul (4.5-11.0)
--- NOTE | 2018-01-25 10:13 | RAD ---
HISTORY: post op COMPARISON: 01/24/2018. FINDINGS: The endotracheal tube terminates 4.5 cm proximal to the janie. The nasogastric tube terminates in the stomach. LUNGS: The lungs are well inflated and clear. PLEURA: Small pleural effusions, no pneumothorax apparent. CARDIOVASCULAR: Normal. OSSEOUS STRUCTURES: No significant abnormalities. VISUALIZED UPPER ABDOMEN: Normal. OTHER FINDINGS: None. IMPRESSION: Endotracheal tube terminates 4.5 cm proximal to the janie. Small pleural effusions.
--- NOTE | 2018-01-25 10:18 | CP.PCM.CON ---
History of Present Illness - History of Present Illness History of Present Illness: 82 year old female with PMH of HTN, colon CA S/P surgery, colostomy, chemotherapy and in remission, atrial fibrillation, history of cataracts and glaucoma, history of herpes zoster, dementia was brought in from the retirement because of vomiting with coffee ground material as well as note of abdominal distention. The patient was also noted to be lethargic. In the ED, the patient was noted to be hypotensive, tachycardic, and the lactate was noted to be very elevated. CT A/P revealed bowel obstruction and possible perforation. She went to the OR this morning and was found to have small bowel necrosis during exploratory laparotomy and small bowel removal was done with peristromal closure. Patient was given antibiotics yesterday on admission and last night and we have changed antibiotics this morning prior to OR. She is in the ICU for closer observation. Infectious diseases consult is requested to further evaluate and manage. Review of Systems - Review of Systems Systems not reviewed;Unavailable: Intubated Past Patient History - Infectious Disease Hx of Infectious Diseases: None - Past Social History Smoking Status: Never Smoked - CARDIAC Hx Cardiac Disorders: Yes Hx Cardia Arrhythmia: Yes Hx Hypertension: Yes - PULMONARY Hx Respiratory Disorders: No Hx Asthma: No Hx Bronchitis: No Hx Chronic Obstructive Pulmonary Disease (COPD): No Hx Emphysema: No Hx Pneumonia: No - NEUROLOGICAL Hx Neurological Disorder: Yes Hx Alzheimer's Disease: Yes Hx Dementia: Yes - HEENT Hx HEENT Problems: Yes Hx Cataracts: Yes Hx Glaucoma: Yes - RENAL Hx Chronic Kidney Disease: No - ENDOCRINE/METABOLIC Hx Endocrine Disorders: No - HEMATOLOGICAL/ONCOLOGICAL Hx Cancer: Yes Hx Chemotherapy: Yes Hx Shingles: Yes - INTEGUMENTARY Hx Dermatological Problems: No - MUSCULOSKELETAL/RHEUMATOLOGICAL Hx Musculoskeletal Disorders: Yes Hx Falls: Yes Hx Unsteady Gait: Yes - GASTROINTESTINAL Hx Colostomy: Yes (1999) - GENITOURINARY/GYNECOLOGICAL Hx Genitourinary Disorders: No - PSYCHIATRIC Hx Psychophysiologic Disorder: No - SURGICAL HISTORY Hx Surgeries: Yes Other/Comment: colostomy 1999 - ANESTHESIA Hx Anesthesia: Yes Hx Anesthesia Reactions: No Hx Malignant Hyperthermia: No Meds Allergies/Adverse Reactions: Allergies Allergy/AdvReac Type Severity Reaction Status Date / Time No Known Allergies Allergy Verified 01/24/18 15:04 - Medications Medications: Current Medications Acetaminophen (Tylenol 325mg Tab) 650 mg PO Q6 PRN PRN Reason: Pain, Mild (1-3) Diltiazem HCl (Cardizem Cd) 120 mg PO DAILY KATY Enoxaparin Sodium (Lovenox) 30 mg SC DAILY KATY PRN Reason: Protocol Sodium Chloride (Sodium Chloride 0.9%) 1,000 mls @ 100 mls/hr IV .Q10H KATY Last Admin: 01/25/18 01:12 Dose: 100 mls/hr Sodium Chloride (Sodium Chloride 0.9%) 1,000 mls @ 100 mls/hr IV .Q10H KATY Last Admin: 01/24/18 17:38 Dose: 100 mls/hr Acetaminophen (Ofirmev) 1,000 mg in 100 mls @ 400 mls/hr IVPB Q6H PRN PRN Reason: Pain, moderate (4-7) Stop: 01/26/18 23:03 Last Admin: 01/24/18 23:16 Dose: 400 mls/hr diltiaZEM IVPB 100mg in NS (Cardizem 100mg In Ns) 100 mls @ 5 mls/hr IV .Q20H PRN; Protocol; 5 MG/HR PRN Reason: TITRATE PER MD ORDER Last Admin: 01/25/18 05:37 Dose: 5 mg/hr, 5 mls/hr Vasopressin 20 units/ Dextrose 101 mls @ 9.09 mls/hr IV .Q11H7M KATY; 0.03 U/MIN PRN Reason: Protocol Last Admin: 01/25/18 05:24 Dose: 0.03 u/min, 9.09 mls/hr Phenylephrine HCl 40 mg/ (Sodium Chloride) 254 mls @ 38.1 mls/hr IV .Q6H40M PRN ; Protocol; 100 MCG/MIN PRN Reason: TITRATE PER MD ORDER Last Admin: 01/25/18 05:24 Dose: 100 mcg/min, 38.1 mls/hr Meropenem 500 mg/ Sodium (Chloride) 50 mls @ 100 mls/hr IVPB Q12 KATY PRN Reason: Protocol Stop: 02/01/18 06:01 Vancomycin HCl 2 gm/ Sodium (Chloride) 500 mls @ 170 mls/hr IVPB ONCE ONE PRN Reason: Protocol Stop: 01/25/18 08:57 Morphine Sulfate (Morphine) 2 mg IVP Q4H PRN PRN Reason: Pain, moderate (4-7) Ondansetron HCl (Zofran Inj) 4 mg IVP Q4 PRN PRN Reason: Nausea/Vomiting Pantoprazole Sodium (Protonix Inj) 40 mg IVP DAILY KATY Physical Exam - Constitutional Appears: Other (intubated, on pressors) - Head Exam Head Exam: NORMAL INSPECTION - ENT Exam Additional comments: ET tube in place - Respiratory Exam Respiratory Exam: Decreased Breath Sounds - Cardiovascular Exam Cardiovascular Exam: +S1, +S2 - GI/Abdominal Exam GI & Abdominal Exam: Soft Additional comments: dressings in place Results - Vital Signs Recent Vital Signs: Last Vital Signs Temp 97.8 F 01/24/18 19:09 Pulse 187 H 01/25/18 02:50 Resp 43 H 01/25/18 02:50 BP 64/23 L 01/25/18 05:24 Pulse Ox 67 L 01/25/18 02:50 - Labs Result Diagrams: 01/25/18 09:40 01/25/18 09:40 Labs: Laboratory Results - last 24 hr 01/24/18 01/24/18 01/25/18 20:07 23:09 05:16 Sodium 139 Potassium 4.0 Chloride 105 Carbon Dioxide 24 Anion Gap 14 BUN 54 H Creatinine 2.2 H Est GFR ( Amer) 26 Est GFR (Non-Af Amer) 21 Random Glucose 58 L Lactic Acid 4.2 H* Calcium 6.7 L* Total Bilirubin 0.5 AST 48 H D ALT 36 Alkaline Phosphatase 44 Total Protein 3.9 L Albumin 1.8 L Globulin 2.1 Albumin/Globulin Ratio 0.9 L Blood Type B POSITIVE Antibody Screen Negative Crossmatch See Detail BBK History Checked Patient has bt 01/25/18 05:16 Sodium Potassium Chloride Carbon Dioxide Anion Gap BUN Creatinine Est GFR ( Amer) Est GFR (Non-Af Amer) Random Glucose Lactic Acid 2.1 Calcium Total Bilirubin AST ALT Alkaline Phosphatase Total Protein Albumin Globulin Albumin/Globulin Ratio Blood Type Antibody Screen Crossmatch BBK History Checked Assessment & Plan - Assessment and Plan (Free Text) Plan: Assessment Shock from perforated viscus, necrotic small bowels and severe sepsis with acute renal failure S/P exploratory laparotomy, removal of necrotic small bowel and peristromal closure today history of left sided healthcare-associated pneumonia history of left upper lobe cavitary lesion, probably malignancy HTN colon CA S/P surgery, colostomy, chemotherapy and in remission atrial fibrillation history of cataracts and glaucoma history of herpes zoster dementia Plan given a dose of IV Vancomycin and started Zyvox and Merrem and will follow up blood cx and cultures during surgery patient is in critical condition and overall prognosis is poor
[2018-01-25 14:35] LABS: VENOUS BLOOD GAS BASE EXCESS -7.7 mmol/L (0.0-2.0); VENOUS BLOOD GAS PO2 116 mm/Hg (30-55); VENOUS BLOOD PH 7.25 (7.32-7.43)
--- NOTE | 2018-01-25 15:04 | CON ---
DATE: The patient was seen in the Emergency Room and evaluated. A CAT scan is done showing extensive hepatic portal gas, areas of ischemia in the colon were seen with pneumatosis and there is probably some free air. The abdomen is not guarding, but is tender. At that time, I have offered an operation, she flatly refused. I have seen her for a long time and she is in and out of lucency. At 4 o'clock in the morning, consent is obtained from the power of assistant prosecuting attorney and in the hospital spoke to her. She is agreeing to the operation and seems lucid. Right now, the blood pressure is 80 and not on pressors;, the heart rate is variable, right now it is 150. I believe this is bowel and I believe the only chance the patient has to survive is this operation which might be very aggressive. It might involve resecting most of the small bowel and certainly there is ischemic bowel. I believe the operation is perilous, but I also believe it is the only chance that she will survive. The window of opportunity is narrowing and I do not think they have the option of waiting. she is not going to survive even with an operation. We will proceed. The central line is being placed. The DNR/DNI will be rescinded until postop. Hoang Varela MD
--- NOTE | 2018-01-25 17:18 | CP.PCM.PN ---
Subjective - Date & Time of Evaluation Date of Evaluation: 01/25/18 Time of Evaluation: 17:11 - Subjective Subjective: Surgery: Dr. Varela Patient condition is critical. Personally had multiple discussions with family, NEETA about further goals of care. DNR/DNI paperwork obtained from [facility]. Awaiting confirmation paperwork of POA. Family preferring comfort measures only going forward; however must wait until appropriate documentation is obtained to proceed with wishes. POA states the POAQuiana, who is in [place] currently, will be available for plan of care discussion later today. Al, NEETA's , states he will fax confirmation of POA once he obtains paperwork from home. any questions please reach out to surgical team via pager D/W ICU and Dr. [place] Objective - Vital Signs/Intake and Output Vital Signs (last 24 hours): Temp Pulse Resp BP Pulse Ox 93.2 F L 89 15 0/0 L 100 01/25/18 14:00 01/25/18 14:00 01/25/18 08:17 01/25/18 11:12 01/25/18 14:00 Intake and Output: 01/25/18 01/25/18 06:59 18:59 Intake Total 0 Balance 0 - Medications Medications: Current Medications Hydrocortisone Sodium Succinate (Solu-Cortef) 50 mg IVP Q6 KATY Last Admin: 01/25/18 13:00 Dose: 50 mg Acetaminophen (Ofirmev) 1,000 mg in 100 mls @ 400 mls/hr IVPB Q6H PRN PRN Reason: Pain, moderate (4-7) Stop: 01/26/18 23:03 Last Admin: 01/24/18 23:16 Dose: 400 mls/hr Meropenem 500 mg/ Sodium (Chloride) 50 mls @ 100 mls/hr IVPB Q12H KATY PRN Reason: Protocol Stop: 02/01/18 06:01 Last Admin: 01/25/18 10:25 Dose: 100 mls/hr Fentanyl Citrate (Fentanyl Citrate/Sodium Chloride 1 Mg/100 Ml) 1,000 mcg in 100 mls @ 2 mls/hr IV .Q24H PRN; Protocol; 20 MCG/HR PRN Reason: TITRATE PER MD ORDER Propofol (Diprivan) 1,000 mg in 100 mls @ 1.565 mls/hr IV .Q24H PRN; Protocol; 5 MCG/KG/MIN PRN Reason: TITRATE PER MD ORDER Last Titration: 01/25/18 13:17 Dose: 10 mcg/kg/min, 3.13 mls/hr Linezolid (Zyvox 600mg/300ml D5w) 600 mg in 300 mls @ 200 mls/hr IVPB Q12 KATY PRN Reason: Protocol Stop: 02/01/18 10:01 Last Admin: 01/25/18 11:45 Dose: 200 mls/hr Sodium Chloride (Sodium Chloride 0.9%) 1,000 mls @ 150 mls/hr IV .Q6H40M [facility] Last Admin: 01/25/18 10:41 Dose: 150 mls/hr NOREPINEPHRINE BIT/0.9 % NACL (Levophed 4 Mg/ 250 Ml Ns Premixed) 4 mg in 250 mls @ 15 mls/hr IV .[id number] PRN; Protocol; 4 MCG/MIN PRN Reason: TITRATE PER MD ORDER Last Admin: 01/25/18 10:32 Dose: 4 mcg/min, 15 mls/hr Pantoprazole Sodium (Protonix Inj) 40 mg IVP DAILY [facility] Last Admin: 01/25/18 11:00 Dose: 40 mg - Labs Labs: 01/25/18 09:40 01/25/18 09:40 PT 17.4 SECONDS (9.4-12.5) H 01/24/18 15:15 INR 1.51 (0.93-1.08) H 01/24/18 15:15 APTT 28.8 Seconds (25.1-36.5) 01/24/18 15:15
[2018-01-25 18:31] LABS: VENOUS BLOOD GAS PO2 40 mm/Hg (30-55); VENOUS BLOOD PH 7.28 (7.32-7.43)
--- NOTE | 2018-01-25 18:37 | CP.PCM.PN ---
Subjective - Date & Time of Evaluation Date of Evaluation: 01/25/18 Time of Evaluation: 18:32 - Subjective Subjective: Patients POA/HCP form was faxed over the MICU. As per documentaiton the patient designated Quiana Balbuena to be POA/HCP. The patients POA/HCP, Quiana Balbuena called into the MICU. I spoke to Quiana who informed me that the patient would not have wanted any aggressive surgical/medical treatment, and that she would have wanted to "peaceful and comfortable". Pts POA requesting that the patient be disconnected from the ventilator, stop all pressors, IVF, IV Abx, and be made comfortable. Will abide by the POA wishes. Comfort care, terminal extubation, morphine drip, DNR/DNI. Conversation witnessed by Windy Fischer RN, who spoke to the POA as well. Objective - Vital Signs/Intake and Output Vital Signs (last 24 hours): Temp Pulse Resp BP Pulse Ox 93.2 F L 89 15 0/0 L 100 01/25/18 14:00 01/25/18 14:00 01/25/18 08:17 01/25/18 11:12 01/25/18 14:00 Intake and Output: 01/25/18 01/25/18 06:59 18:59 Intake Total 0 Balance 0 - Medications Medications: Current Medications Hydrocortisone Sodium Succinate (Solu-Cortef) 50 mg IVP Q6 KATY Last Admin: 01/25/18 13:00 Dose: 50 mg Acetaminophen (Ofirmev) 1,000 mg in 100 mls @ 400 mls/hr IVPB Q6H PRN PRN Reason: Pain, moderate (4-7) Stop: 01/26/18 23:03 Last Admin: 01/24/18 23:16 Dose: 400 mls/hr Meropenem 500 mg/ Sodium (Chloride) 50 mls @ 100 mls/hr IVPB Q12H KATY PRN Reason: Protocol Stop: 02/01/18 06:01 Last Admin: 01/25/18 10:25 Dose: 100 mls/hr Fentanyl Citrate (Fentanyl Citrate/Sodium Chloride 1 Mg/100 Ml) 1,000 mcg in 100 mls @ 2 mls/hr IV .Q24H PRN; Protocol; 20 MCG/HR PRN Reason: TITRATE PER MD ORDER Propofol (Diprivan) 1,000 mg in 100 mls @ 1.565 mls/hr IV .Q24H PRN; Protocol; 5 MCG/KG/MIN PRN Reason: TITRATE PER MD ORDER Last Titration: 01/25/18 13:17 Dose: 10 mcg/kg/min, 3.13 mls/hr Linezolid (Zyvox 600mg/300ml D5w) 600 mg in 300 mls @ 200 mls/hr IVPB Q12 KATY PRN Reason: Protocol Stop: 02/01/18 10:01 Last Admin: 01/25/18 11:45 Dose: 200 mls/hr Sodium Chloride (Sodium Chloride 0.9%) 1,000 mls @ 150 mls/hr IV .Q6H40M [facility] Last Admin: 01/25/18 10:41 Dose: 150 mls/hr NOREPINEPHRINE BIT/0.9 % NACL (Levophed 4 Mg/ 250 Ml Ns Premixed) 4 mg in 250 mls @ 15 mls/hr IV .[id number] PRN; Protocol; 4 MCG/MIN PRN Reason: TITRATE PER MD ORDER Last Admin: 01/25/18 10:32 Dose: 4 mcg/min, 15 mls/hr Pantoprazole Sodium (Protonix Inj) 40 mg IVP DAILY [facility] Last Admin: 01/25/18 11:00 Dose: 40 mg - Labs Labs: 01/25/18 09:40 01/25/18 09:40 PT 17.4 SECONDS (9.4-12.5) H 01/24/18 15:15 INR 1.51 (0.93-1.08) H 01/24/18 15:15 APTT 28.8 Seconds (25.1-36.5) 01/24/18 15:15
[2018-01-25] MEDS ORDERED: Morphine PCA 1 mg/ml (30ml) 30 ML IV ONE (18:45)
--- NOTE | 2018-01-25 19:11 | CON ---
DATE: CONSULT SERVICE: Cardiology. CONSULTING PHYSICIAN: Gaurang Damico M.D. REASON FOR CONSULTATION: Followup cardiac evaluation, status post OR, AFib, hypertension, status post small bowel resection. BRIEF CLINICAL HISTORY: This is an 82-year-old female with past medical history significant for colon cancer status post colostomy, history of chronic atrial fibrillation, hypertension, history of shingles, history of dementia, resident of [facility] who was transferred to the [facility] because of her distention of abdomen, coffee ground emesis. The patient was found to be in the ER with sepsis with septic shock, lactate level 6.7 with small bowel obstruction. The patient was taken inshore undersea warfare officer to the OR. I saw the patient while the patient was coming from the OR on the way to recovery in the ICU. Discussed with anesthesiologist during intraoperatively 700 mL of fluid was given. Heart rate 140, on Luis-Synephrine drip, as well as Versed drip, intubated, as well as on Cardizem drip. PAST MEDICAL HISTORY: Significant for Alzheimer disease, colon cancer status post colostomy in the past, hypertension, shingles, atrial fibrillation, paroxysmal atrial fibrillation. PAST SURGICAL HISTORY: Significant for colon dissection, status post colostomy since 2001. SOCIAL HISTORY: Lives in [facility]. No documented history of alcohol abuse or tobacco abuse. Previous cardiac workup as follows: The patient had echocardiography on last admission on 04/20/2016 with ejection fraction 65%, moderate aortic regurgitation, mild aortic stenosis, mild mitral regurgitation, [id number] tricuspid regurgitation, RV systolic pressure 43. The patient had a bilateral carotid duplex on 04/20/2016 that shows bilateral 20% to 39% stenosis. CURRENT MEDICATIONS: At custodial was Cardizem 120 mg daily, Xarelto 20 mg daily, acetaminophen 650 daily. As mentioned last echocardiography on 04/20/2016, ejection fraction 65%, mild aortic stenosis, moderate aortic regurgitation, [id number] tricuspid regurgitation, left pleural effusion dated 04/20/2016. REVIEW OF SYSTEMS: As per HPI. PHYSICAL EXAMINATION: As follows: VITAL SIGNS: Temperature afebrile, heart rate 130, blood pressure 90/80. HEENT: PERRLA. Extraocular muscles intact. NECK: Supple. No carotid bruits or thyromegaly. CHEST: Clear to auscultation. HEART: S1, S2 irregular. ABDOMEN: drainage as well as surgical dressing. LABORATORY DATA: Blood workup as follows: WBC 2, hemoglobin 11.2, hematocrit 33.9, platelet count 133. Chemistry shows sodium 130, potassium 4, chloride 105, carbon dioxide 24, anion gap of 14, BUN 54, creatinine 2.2. IMPRESSION: Acute abdomen, history of colon cancer, history of atrial fibrillation, chronic hypotension, sepsis, septic shock, status post exploratory laparotomy done. RECOMMENDATION: Continue Luis-Synephrine. We will start 2-3 doses of IV albumin to increase the increase the blood pressure. Follow up vent management, fluid resuscitation. Monitor closely. We will follow. Overall, the patient is critical. Prognosis is extremely guarded. We will follow with you. Thank you, Dr. Mixon, for providing us the opportunity in taking care of Lizz Santos. Gaurang Damico MD
[2018-01-25] MEDS ORDERED: Morphine 10 mg/5 ml Oral Soln GT SCH (20:00)
[2018-01-25] MEDS: Morphine PCA 1 mg/ml (30ml) 30 ML IV SCH (21:38)
[2018-01-26] MEDS ORDERED: Dextrose 50% SYRINGE Inj (50 ml) IVP ONE (04:59)
--- NOTE | 2018-01-26 07:38 | CP.PCM.PN ---
Subjective - Date & Time of Evaluation Date of Evaluation: 01/26/18 Time of Evaluation: 07:36 - Subjective Subjective: Surgery: Dr. Varela Pt made comfort care overnight w. terminal extubation and morphine drip initiated. Objective - Vital Signs/Intake and Output Vital Signs (last 24 hours): Temp Pulse Resp BP Pulse Ox 96.8 F L 132 H 18 94/48 L 98 01/26/18 05:50 01/26/18 05:56 01/26/18 05:50 01/26/18 05:32 01/26/18 05:50 Intake and Output: 01/26/18 01/26/18 06:59 18:59 Intake Total 16 Output Total 200 Balance -184 - Medications Medications: Current Medications Hydrocortisone Sodium Succinate (Solu-Cortef) 50 mg IVP Q6 KATY Last Admin: 01/25/18 18:39 Dose: Not Given Acetaminophen (Ofirmev) 1,000 mg in 100 mls @ 400 mls/hr IVPB Q6H PRN PRN Reason: Pain, moderate (4-7) Stop: 01/26/18 23:03 Last Admin: 01/24/18 23:16 Dose: 400 mls/hr Meropenem 500 mg/ Sodium (Chloride) 50 mls @ 100 mls/hr IVPB Q12H KATY PRN Reason: Protocol Stop: 02/01/18 06:01 Last Admin: 01/25/18 10:25 Dose: 100 mls/hr Fentanyl Citrate (Fentanyl Citrate/Sodium Chloride 1 Mg/100 Ml) 1,000 mcg in 100 mls @ 2 mls/hr IV .Q24H PRN; Protocol; 20 MCG/HR PRN Reason: TITRATE PER MD ORDER Propofol (Diprivan) 1,000 mg in 100 mls @ 1.565 mls/hr IV .Q24H PRN; Protocol; 5 MCG/KG/MIN PRN Reason: TITRATE PER MD ORDER Last Titration: 01/25/18 13:17 Dose: 10 mcg/kg/min, 3.13 mls/hr Linezolid (Zyvox 600mg/300ml D5w) 600 mg in 300 mls @ 200 mls/hr IVPB Q12 KATY PRN Reason: Protocol Stop: 02/01/18 10:01 Last Admin: 01/25/18 11:45 Dose: 200 mls/hr Sodium Chloride (Sodium Chloride 0.9%) 1,000 mls @ 150 mls/hr IV .Q6H40M KATY Last Admin: 01/25/18 10:41 Dose: 150 mls/hr NOREPINEPHRINE BIT/0.9 % NACL (Levophed 4 Mg/ 250 Ml Ns Premixed) 4 mg in 250 mls @ 15 mls/hr IV .[id number] PRN; Protocol; 4 MCG/MIN PRN Reason: TITRATE PER MD ORDER Last Admin: 01/25/18 10:32 Dose: 4 mcg/min, 15 mls/hr Morphine Sulfate (Morphine Flume Ride Operator 1 Mg/Ml) 30 mls @ 1 mls/hr IV Q30H KATY; 1 MG/HR PRN Reason: Protocol Last Titration: 01/26/18 04:00 Dose: 0 mg/hr, 0 mls/hr Pantoprazole Sodium (Protonix Inj) 40 mg IVP DAILY KATY Last Admin: 01/25/18 11:00 Dose: 40 mg - Labs Labs: 01/25/18 09:40 01/25/18 09:40 PT 17.4 SECONDS (9.4-12.5) H 01/24/18 15:15 INR 1.51 (0.93-1.08) H 01/24/18 15:15 APTT 28.8 Seconds (25.1-36.5) 01/24/18 15:15 - Constitutional Appears: No Acute Distress, Chronically Ill - Head Exam Head Exam: ATRAUMATIC, NORMOCEPHALIC - ENT Exam ENT Exam: Mucous Membranes Dry - Respiratory Exam Respiratory Exam: NORMAL BREATHING PATTERN. absent: Accessory Muscle Use, Respiratory Distress - Cardiovascular Exam Cardiovascular Exam: Tachycardia - GI/Abdominal Exam GI & Abdominal Exam: Soft. absent: Distended, Firm, Guarding, Rigid, Tenderness Additional comments: dressing in place C/D/I w. keren x 2 - Extremities Exam Extremities Exam: absent: Calf Tenderness, Pedal Edema - Neurological Exam Neurological Exam: absent: Alert, Awake Assessment and Plan - Assessment and Plan (Free Text) Assessment: 82F w/ SBO/necrotic bowel s/p ex-lap w. small bowel resection, left in discontinuity, POD#1 -pt placed on comfort care w. terminal extubation -no plans for further extubation -d/w attending Page PGY3
--- NOTE | 2018-01-26 14:44 | PN ---
DATE: REASON FOR CONSULTATION AND FOLLOWUP: Cardiac evaluation, status post small bowel resection, atrial fibrillation, hypertension history now with hypotension, tachycardia, DNR/DNI, possible comfort care. PHYSICAL EXAMINATION GENERAL: The patient is obtunded on morphine drip. VITAL SIGNS: Heart rate 140, blood pressure 70/90 fingerstick in the morning. Blood sugar was 59, one ampule of D50 was given. Examination as follows. Temperature as above. HEENT: PERRLA. Extraocular muscles intact. NECK: Supple. No carotid bruit or thyromegaly. CHEST: Clear to auscultation. HEART: S1, S2 regular. ABDOMEN: Soft. Surgical abdomen, status post dressing. EXTREMITIES: Clubbing and cyanosis, negative. IMPRESSION: Status post sepsis; septic shock, status post acute abdomen, status post a small bowel resection, atrial fibrillation with rapid ventricular rate. Last admission echo showed ejection fraction 65%, moderate aortic regurgitation, mild aortic stenosis, mild mitral regurgitation, [id number] tricuspid regurgitation, right ventricular systolic pressure of 43. The patient had bilateral carotid duplex on 04/20/2016 that showed bilateral 20% to 39% stenosis, sepsis, septic shock, and status post exploratory laparotomy. RECOMMENDATIONS: The patient is on morphine drip and comfort care. Since the patient has low blood sugar, we will start D10 at 10 mL/hour. Continue supportive care. If remain in comfort care and hospice care, we will sign off. We will follow up with you. Thank you for providing us the opportunity in taking care of Lizz Santos. Gaurang Damico MD
[2018-01-27] MEDS: Morphine PCA 1 mg/ml (30ml) 30 ML IV SCH (05:43)
--- NOTE | 2018-01-27 10:30 | CP.PCM.PN ---
Subjective - Date & Time of Evaluation Date of Evaluation: 01/27/18 Time of Evaluation: 10:26 - Subjective Subjective: Surgery Pt s&e. Pt is comfort care. Per nursing staff, pt will be transfered to [facility]. No acute events. Pt on morphin drip and resting. Objective - Vital Signs/Intake and Output Vital Signs (last 24 hours): Temp Pulse Resp BP Pulse Ox 97.3 F L 132 H 13 79/39 L 100 01/27/18 09:30 01/27/18 09:30 01/27/18 09:30 01/27/18 09:00 01/27/18 09:30 Intake and Output: 01/27/18 01/27/18 06:59 18:59 Intake Total 582 Output Total 360 Balance 222 - Medications Medications: Current Medications Hydrocortisone Sodium Succinate (Solu-Cortef) 50 mg IVP Q6 KATY Last Admin: 01/25/18 18:39 Dose: Not Given Meropenem 500 mg/ Sodium (Chloride) 50 mls @ 100 mls/hr IVPB Q12H KATY PRN Reason: Protocol Stop: 02/01/18 06:01 Last Admin: 01/25/18 10:25 Dose: 100 mls/hr Fentanyl Citrate (Fentanyl Citrate/Sodium Chloride 1 Mg/100 Ml) 1,000 mcg in 100 mls @ 2 mls/hr IV .Q24H PRN; Protocol; 20 MCG/HR PRN Reason: TITRATE PER MD ORDER Propofol (Diprivan) 1,000 mg in 100 mls @ 1.565 mls/hr IV .Q24H PRN; Protocol; 5 MCG/KG/MIN PRN Reason: TITRATE PER MD ORDER Last Titration: 01/25/18 13:17 Dose: 10 mcg/kg/min, 3.13 mls/hr Linezolid (Zyvox 600mg/300ml D5w) 600 mg in 300 mls @ 200 mls/hr IVPB Q12 [facility]ATY PRN Reason: Protocol Stop: 02/01/18 10:01 Last Admin: 01/25/18 11:45 Dose: 200 mls/hr Sodium Chloride (Sodium Chloride 0.9%) 1,000 mls @ 150 mls/hr IV .Q6H40M KATY Last Admin: 01/25/18 10:41 Dose: 150 mls/hr NOREPINEPHRINE BIT/0.9 % NACL (Levophed 4 Mg/ 250 Ml Ns Premixed) 4 mg in 250 mls @ 15 mls/hr IV .[id number] PRN; Protocol; 4 MCG/MIN PRN Reason: TITRATE PER MD ORDER Last Titration: 01/25/18 18:00 Dose: 0 mcg/min, 0 mls/hr Morphine Sulfate (Morphine Cyber Security Manager 1 Mg/Ml) 30 mls @ 1 mls/hr IV Q30H KATY; 1 MG/HR PRN Reason: Protocol Last Admin: 01/27/18 05:43 Dose: 1 mg/hr, 1 mls/hr Dextrose (Dextrose 10% In Water) 500 mls @ 50 mls/hr IV .Q10H KATY Last Admin: 01/27/18 09:08 Dose: 50 mls/hr Pantoprazole Sodium (Protonix Inj) 40 mg IVP DAILY KATY Last Admin: 01/25/18 11:00 Dose: 40 mg - Labs Labs: 01/25/18 09:40 01/25/18 09:40 PT 17.4 SECONDS (9.4-12.5) H 01/24/18 15:15 INR 1.51 (0.93-1.08) H 01/24/18 15:15 APTT 28.8 Seconds (25.1-36.5) 01/24/18 15:15 - Constitutional Appears: In Acute Distress, Cachectic, Chronically Ill - Head Exam Head Exam: ATRAUMATIC, NORMAL INSPECTION, NORMOCEPHALIC - Eye Exam Eye Exam: EOMI, Normal appearance, PERRL Pupil Exam: NORMAL ACCOMODATION, PERRL - ENT Exam ENT Exam: Mucous Membranes Dry, Mucous Membranes Moist, Normal Exam - Respiratory Exam Respiratory Exam: Clear to Ausculation Bilateral, NORMAL BREATHING PATTERN - Cardiovascular Exam Cardiovascular Exam: Tachycardia, +S1, +S2. absent: Murmur - GI/Abdominal Exam GI & Abdominal Exam: Soft, Tenderness, Normal Bowel Sounds. absent: Distended, Firm Additional comments: Drain in place. Dressing in taken out. - Exam Additional comments: Kaur in place - Extremities Exam Extremities Exam: Normal Capillary Refill, Normal Inspection. absent: Joint Swelling, Pedal Edema - Back Exam Back Exam: NORMAL INSPECTION - Neurological Exam Neurological Exam: absent: Alert, Awake, CN II-XII Intact, Normal Gait, Oriented x3 - Skin Skin Exam: Dry, Intact Assessment and Plan - Assessment and Plan (Free Text) Assessment: POD 2 s/p ex lap bowel resection -NGT to suction -DNI/DNR -COmfort care -Carmella chatman -D10 IVF [address] Dr[address] Varela
--- NOTE | 2018-01-27 12:34 | PN ---
DATE: REASON FOR THE CONSULTATION: Cardiac evaluation, status post small bowel resection, atrial fibrillation, hypertension history now with hypotension, tachycardia, DNR/DNI, possible comfort care. SUBJECTIVE: The patient is on morphine drip, not in apparent distress. OBJECTIVE: GENERAL: Not in apparent distress. VITAL SIGNS: Temperature afebrile, heart rate 132, blood pressure 79/39. HEENT: PERRLA. Extraocular muscles intact. NECK: Supple. No carotid bruit or thyromegaly. CHEST: Clear to auscultation. HEART: S1 and S2, regular. ABDOMEN: Soft. EXTREMITIES: Clubbing and cyanosis negative. LABORATORY DATA: Blood workup as follows; WBC 1.5, hemoglobin 11.6, hematocrit 34.6, platelet count 142. Chemistry shows sodium as of yesterday 137, potassium 3.8, chloride 107, carbon dioxide 22, anion gap of 12. BUN 5, creatinine 0.2. IMPRESSION: Status post small bowel obstruction, status post small bowel resection; sepsis; septic shock; atrial fibrillation with rapid ventricular rate. Last admission echocardiogram showed 65%, moderate aortic regurgitation, mild aortic stenosis, mild mitral regurgitation, [id number] tricuspid regurgitation, right ventricular systolic pressure of 43. The patient is on morphine drip and comfort care. Blood sugar, was started D10. RECOMMENDATIONS: Continue comfort care. We will sign off and glad to follow up p.r.n. Thank you Dr. Varela for providing us the opportunity in taking care of Tom. Discussed in length with Dr. Alexander Gilbert, blind stitch machine operator covering and the patient can be transferred to Med-Surg floor for the comfort care. The patient is DNR/DNI. Gaurang Damico MD
--- NOTE | 2018-01-28 07:55 | CP.PCM.PN ---
Subjective - Date & Time of Evaluation Date of Evaluation: 01/28/18 Time of Evaluation: 07:52 - Subjective Subjective: Surgery PT s&e. Pt is comfort care. On morphine drip. Doesn't response to stimuli. NGT in place. Objective - Vital Signs/Intake and Output Vital Signs (last 24 hours): Temp Pulse Resp BP Pulse Ox 97.3 F L 132 H 13 79/39 L 100 01/27/18 09:30 01/27/18 09:30 01/27/18 09:30 01/27/18 09:00 01/27/18 09:30 Intake and Output: 01/28/18 01/28/18 06:59 18:59 Intake Total 120 Balance 120 - Medications Medications: Current Medications Hydrocortisone Sodium Succinate (Solu-Cortef) 50 mg IVP Q6 KATY Last Admin: 01/25/18 18:39 Dose: Not Given Meropenem 500 mg/ Sodium (Chloride) 50 mls @ 100 mls/hr IVPB Q12H [facility]ATY PRN Reason: Protocol Stop: 02/01/18 06:01 Last Admin: 01/25/18 10:25 Dose: 100 mls/hr Fentanyl Citrate (Fentanyl Citrate/Sodium Chloride 1 Mg/100 Ml) 1,000 mcg in 100 mls @ 2 mls/hr IV .Q24H PRN; Protocol; 20 MCG/HR PRN Reason: TITRATE PER MD ORDER Propofol (Diprivan) 1,000 mg in 100 mls @ 1.565 mls/hr IV .Q24H PRN; Protocol; 5 MCG/KG/MIN PRN Reason: TITRATE PER MD ORDER Last Titration: 01/25/18 13:17 Dose: 10 mcg/kg/min, 3.13 mls/hr Linezolid (Zyvox 600mg/300ml D5w) 600 mg in 300 mls @ 200 mls/hr IVPB Q12 [facility]ATY PRN Reason: Protocol Stop: 02/01/18 10:01 Last Admin: 01/25/18 11:45 Dose: 200 mls/hr Sodium Chloride (Sodium Chloride 0.9%) 1,000 mls @ 150 mls/hr IV .Q6H40M KATY Last Admin: 01/25/18 10:41 Dose: 150 mls/hr NOREPINEPHRINE BIT/0.9 % NACL (Levophed 4 Mg/ 250 Ml Ns Premixed) 4 mg in 250 mls @ 15 mls/hr IV .[id number] PRN; Protocol; 4 MCG/MIN PRN Reason: TITRATE PER MD ORDER Last Titration: 01/25/18 18:00 Dose: 0 mcg/min, 0 mls/hr Morphine Sulfate (Morphine Signaling Project Engineer 1 Mg/Ml) 30 mls @ 1 mls/hr IV Q30H KATY; 1 MG/HR PRN Reason: Protocol Last Admin: 01/27/18 05:43 Dose: 1 mg/hr, 1 mls/hr Dextrose (Dextrose 10% In Water) 500 mls @ 50 mls/hr IV .Q10H KATY Last Admin: 01/27/18 09:08 Dose: 50 mls/hr Pantoprazole Sodium (Protonix Inj) 40 mg IVP DAILY KATY Last Admin: 01/25/18 11:00 Dose: 40 mg - Labs Labs: 01/25/18 09:40 01/25/18 09:40 PT 17.4 SECONDS (9.4-12.5) H 01/24/18 15:15 INR 1.51 (0.93-1.08) H 01/24/18 15:15 APTT 28.8 Seconds (25.1-36.5) 01/24/18 15:15 - Constitutional Appears: In Acute Distress, Cachectic, Chronically Ill - Head Exam Head Exam: ATRAUMATIC, NORMAL INSPECTION, NORMOCEPHALIC - Eye Exam Eye Exam: Normal appearance - ENT Exam ENT Exam: Mucous Membranes Dry Additional comments: NGT in place - Respiratory Exam Respiratory Exam: NORMAL BREATHING PATTERN - Cardiovascular Exam Cardiovascular Exam: Tachycardia - GI/Abdominal Exam GI & Abdominal Exam: Soft. absent: Distended, Firm, Guarding, Rigid, Tenderness , Hernia, Mass, Rebound Additional comments: Incision C/D/I - Rectal Exam Rectal Exam: NORMAL INSPECTION - Exam Exam: NORMAL INSPECTION (Kaur in place ) - Extremities Exam Extremities Exam: Normal Inspection. absent: Full ROM - Back Exam Back Exam: NORMAL INSPECTION - Neurological Exam Neurological Exam: Altered. absent: Alert, Awake, Normal Gait, Oriented x3 - Skin Skin Exam: Dry, Warm Assessment and Plan - Assessment and Plan (Free Text) Assessment: POD 3 s/p ex lap bowel resection -NGT to suction -DNI/DNR -COmfort care -Morjoao drip -D10 IVF Will DW Dr. Varela
[2018-01-28] MEDS ORDERED: Morphine PCA 1 mg/ml (30ml) 30 ML IV PRN (08:25)
--- NOTE | 2018-01-28 09:23 | PN ---
DATE: 01/26/2018 MASTER GLAZIER NOTE SUBJECTIVE: The patient is unresponsive on O2 via nasal cannula. The patient is DNR and DNI and was extubated. Note that this was a terminal extubation. The patient at this time is on a morphine drip. Note that the patient is somewhat tachycardic and blood pressure is stable without supportive medications. PHYSICAL EXAMINATION: VITAL SIGNS: Physical exam note that her temperature is 96.8, her pulse is 132, respirations 18 and BP is 94/48. SKIN: Warm and dry. HEENT: Head atraumatic, normocephalic. Eyes reactive to light. Ear, nose and throat seemed to be within normal limits. NECK: Supple. No JVD. No thyroid enlargement. No lymph nodes. HEART: Regular rate and rhythm. Normal S1, S2 with tachycardic. LUNGS: Reveal mild rhonchi bilaterally. ABDOMEN: Soft. No bowel sounds. GENITALIA AND RECTAL: Deferred. MUSCULOSKELETAL: No joint deformities. EXTREMITIES: Positive lower extremity edema. NEUROLOGIC: The patient is fairly unresponsive on morphine drip. IMPRESSION: As far as my impression, this patient presented with small bowel obstruction, noted on exploratory laparoscopy to have necrotic bowel. The patient as per family since had been made do not resuscitate/do not intubate and as stated above had a terminal extubation. The patient is on morphine drip and supportive care at this time. The patient will be monitored closely and we will continue with the family's wishes of do not resuscitate/do not intubate and morphine drip. Alexander Gilbert MD
--- NOTE | 2018-01-28 10:00 | PN ---
DATE: 01/27/2018 GENERAL MACHINE OPERATOR NOTE SUBJECTIVE: The patient is unresponsive with O2 via nasal cannula, continues to be a DNR/DNI, was terminally extubated. The patient is for comfort care. She continues to have hypotension with tachycardia, but O2 saturation is 100%. PHYSICAL EXAMINATION: VITAL SIGNS: Note that patient is afebrile, heart rate is 135, BP is , respirations 12, O2 saturation is 100% on 2 liters of nasal cannula. HEENT: Head is atraumatic and normocephalic. Eyes are reactive to light. Ears, nose and throat seemed to be within normal limits. NECK: Supple. No JVD. No thyroid enlargement. No lymph nodes. HEART: Has a regular rate and rhythm. Normal S1, S2. LUNGS: Reveal rare rhonchi at the bases. ABDOMEN: Soft. Decreased bowel sounds. GENITALIA: Deferred. RECTAL: Deferred. MUSCULOSKELETAL: No joint deformities. EXTREMITIES: Reveal trace lower extremity edema. NEUROLOGICAL: Patient is unresponsive. IMPRESSION: Patient is status post sepsis with septic shock and had exploratory laparotomy for necrotic small bowel. Patient is slated for comfort care and do not resuscitate/do not intubate as per family. PLAN: We will continue to give morphine drip and patient is for comfort care in hospice. Patient is getting IV fluids and we will continue to monitor, but plans are to transfer patient to Med/Surg for comfort care and support. Alexander Gilbert MD
--- NOTE | 2018-01-28 11:25 | CP.PCM.CON ---
History of Present Illness - History of Present Illness History of Present Illness: Palliative consult requested by Dr Magdalena Varela copied t Dr Bandar Mixon Reason: Goals of care/comfort care 82 year old female with history colon cancer, dementia , shingles and A Fib who presented with abdominal distention and coffee ground emisis.She as admiiteed with septic shick secondary to perforated viscus. She is s/p viscus repair PMHx:colon cancer s/p resection, chronic A fib,PAT, HTN, shingles, Alzheimer dementia Social History: Non smoker, no alcohol or drug use.Lives alone. Family History : Non contributory. Advance Care Planning: The patient has an Advanced Directive. She is DNR/DNI. Her POA is Quiana Balbuena Review of Systems: As per HPI, patient is obtund, non verbal. Past Patient History - Infectious Disease Hx of Infectious Diseases: None - Past Social History Smoking Status: Never Smoked - CARDIAC Hx Cardiac Disorders: Yes Hx Cardia Arrhythmia: Yes Hx Hypertension: Yes - PULMONARY Hx Respiratory Disorders: No Hx Asthma: No Hx Bronchitis: No Hx Chronic Obstructive Pulmonary Disease (COPD): No Hx Emphysema: No Hx Pneumonia: No - NEUROLOGICAL Hx Neurological Disorder: Yes Hx Alzheimer's Disease: Yes Hx Dementia: Yes - HEENT Hx HEENT Problems: Yes Hx Cataracts: Yes Hx Glaucoma: Yes - RENAL Hx Chronic Kidney Disease: No - ENDOCRINE/METABOLIC Hx Endocrine Disorders: No - HEMATOLOGICAL/ONCOLOGICAL Hx Cancer: Yes Hx Chemotherapy: Yes Hx Shingles: Yes - INTEGUMENTARY Hx Dermatological Problems: No - MUSCULOSKELETAL/RHEUMATOLOGICAL Hx Musculoskeletal Disorders: Yes Hx Falls: Yes Hx Unsteady Gait: Yes - GASTROINTESTINAL Hx Colostomy: Yes (1999) - GENITOURINARY/GYNECOLOGICAL Hx Genitourinary Disorders: No - PSYCHIATRIC Hx Psychophysiologic Disorder: No - SURGICAL HISTORY Hx Surgeries: Yes Other/Comment: colostomy 1999 - ANESTHESIA Hx Anesthesia: Yes Hx Anesthesia Reactions: No Hx Malignant Hyperthermia: No Meds Allergies/Adverse Reactions: Allergies Allergy/AdvReac Type Severity Reaction Status Date / Time No Known Allergies Allergy Verified 01/24/18 15:04 - Medications Medications: Current Medications Acetaminophen (Tylenol 650 Mg Supp) 650 mg RC Q4H PRN PRN Reason: Fever >100.4 F Hydrocortisone Sodium Succinate (Solu-Cortef) 50 mg IVP Q6 KATY Last Admin: 01/25/18 18:39 Dose: Not Given Meropenem 500 mg/ Sodium (Chloride) 50 mls @ 100 mls/hr IVPB Q12H KATY PRN Reason: Protocol Stop: 02/01/18 06:01 Last Admin: 01/25/18 10:25 Dose: 100 mls/hr Fentanyl Citrate (Fentanyl Citrate/Sodium Chloride 1 Mg/100 Ml) 1,000 mcg in 100 mls @ 2 mls/hr IV .Q24H PRN; Protocol; 20 MCG/HR PRN Reason: TITRATE PER MD ORDER Propofol (Diprivan) 1,000 mg in 100 mls @ 1.565 mls/hr IV .Q24H PRN; Protocol; 5 MCG/KG/MIN PRN Reason: TITRATE PER MD ORDER Last Titration: 01/25/18 13:17 Dose: 10 mcg/kg/min, 3.13 mls/hr Linezolid (Zyvox 600mg/300ml D5w) 600 mg in 300 mls @ 200 mls/hr IVPB Q12 [facility] PRN Reason: Protocol Stop: 02/01/18 10:01 Last Admin: 01/25/18 11:45 Dose: 200 mls/hr Sodium Chloride (Sodium Chloride 0.9%) 1,000 mls @ 150 mls/hr IV .Q6H40M [facility] Last Admin: 01/25/18 10:41 Dose: 150 mls/hr NOREPINEPHRINE BIT/0.9 % NACL (Levophed 4 Mg/ 250 Ml Ns Premixed) 4 mg in 250 mls @ 15 mls/hr IV .[id number] PRN; Protocol; 4 MCG/MIN PRN Reason: TITRATE PER MD ORDER Last Titration: 01/25/18 18:00 Dose: 0 mcg/min, 0 mls/hr Morphine Sulfate (Morphine Scanning Coordinator 1 Mg/Ml) 30 mls @ 1 mls/hr IV PRN PRN; Protocol ; 1 MG/HR PRN Reason: TITRATE PER MD ORDERS Last Admin: 01/28/18 10:48 Dose: 1 mg/hr, 1 mls/hr Pantoprazole Sodium (Protonix Inj) 40 mg IVP DAILY [facility] Last Admin: 01/25/18 11:00 Dose: 40 mg Physical Exam - Constitutional Appears: No Acute Distress, Chronically Ill - Head Exam Head Exam: NORMOCEPHALIC - Eye Exam Eye Exam: Normal appearance Pupil Exam: Fixed - ENT Exam ENT Exam: Mucous Membranes Moist Additional comments: NG to continuous suction, bilious drainage - Neck Exam Neck exam: Positive for: Normal Inspection - Respiratory Exam Respiratory Exam: Decreased Breath Sounds - Cardiovascular Exam Cardiovascular Exam: Tachycardia, +S1, +S2 - GI/Abdominal Exam GI & Abdominal Exam: Diminished Bowel Sounds, Tenderness Additional comments: dressing intact - Extremities Exam Extremities exam: Positive for: pedal edema, pedal pulses present - Back Exam Back exam: NORMAL INSPECTION - Skin Skin Exam: Dry, Pallor - Additional Findings Additional findings: Palliative performance scale rating 20% Results - Vital Signs Recent Vital Signs: Last Vital Signs Temp 99.0 F 01/28/18 07:30 Pulse 128 H 01/28/18 07:30 Resp 12 01/28/18 07:30 BP 73/39 L 01/28/18 07:30 Pulse Ox 96 01/28/18 07:30 - Labs Result Diagrams: 01/25/18 09:40 01/25/18 09:40 Labs: Laboratory Results - last 24 hr 01/24/18 01/27/18 01/27/18 20:07 16:00 21:22 POC Glucose (mg/dL) 118 H 115 H Crossmatch See Detail 01/28/18 07:21 POC Glucose (mg/dL) 125 H Crossmatch Assessment & Plan - Assessment and Plan (Free Text) Assessment: 82 year old female with history of colon cancer , A fib, HTN , shingles who was admitted with perforated viscus s/p repair, ischemic bowel, septic shock, s/p terminal extubation and vasopressors. Education Spec Dr.Y Heller and RN Windy Fischer spoke with NEETA Balbuena via phone. [facility] [place]. POA understands patients medical condition and prognosis. At request of POA patient was terminally extubated/ pressors stopped and placed on comfort care. POA does not what IVF's, laboratory or radiological testing. Family agreed to morphine and other comfort measures as needed. As per POA request will continue comfort measures as described above. Plan: Stop IVF's Pain Management : Morphine 1 mg/hr continuos FOOD SERVICES DIRECTOR. Ativan 0.5mg IV every 8 hours as needed for agitation /restlessness Upper airway secretions:Scopolamine transdermal patch Fever over 100 F : Tylenol 650 mg RC Gastric secretions:NG tube to continuos suction
--- NOTE | 2018-01-28 16:14 | CP.PCM.PN ---
Subjective - Date & Time of Evaluation Date of Evaluation: 01/28/18 Time of Evaluation: 09:00 - Subjective Subjective: Patient is on comfort care, lethargic. Objective - Vital Signs/Intake and Output Vital Signs (last 24 hours): Temp Pulse Resp BP Pulse Ox 99.0 F 128 H 12 73/39 L 96 01/28/18 07:30 01/28/18 07:30 01/28/18 07:30 01/28/18 07:30 01/28/18 07:30 Intake and Output: 01/28/18 01/28/18 06:59 18:59 Intake Total 120 Balance 120 - Medications Medications: Current Medications Hydrocortisone Sodium Succinate (Solu-Cortef) 50 mg IVP Q6 [facility]ATY Last Admin: 01/25/18 18:39 Dose: Not Given Meropenem 500 mg/ Sodium (Chloride) 50 mls @ 100 mls/hr IVPB Q12H [facility] PRN Reason: Protocol Stop: 02/01/18 06:01 Last Admin: 01/25/18 10:25 Dose: 100 mls/hr Fentanyl Citrate (Fentanyl Citrate/Sodium Chloride 1 Mg/100 Ml) 1,000 mcg in 100 mls @ 2 mls/hr IV .Q24H PRN; Protocol; 20 MCG/HR PRN Reason: TITRATE PER MD ORDER Propofol (Diprivan) 1,000 mg in 100 mls @ 1.565 mls/hr IV .Q24H PRN; Protocol; 5 MCG/KG/MIN PRN Reason: TITRATE PER MD ORDER Last Titration: 01/25/18 13:17 Dose: 10 mcg/kg/min, 3.13 mls/hr Linezolid (Zyvox 600mg/300ml D5w) 600 mg in 300 mls @ 200 mls/hr IVPB Q12 [facility] PRN Reason: Protocol Stop: 02/01/18 10:01 Last Admin: 01/25/18 11:45 Dose: 200 mls/hr Sodium Chloride (Sodium Chloride 0.9%) 1,000 mls @ 150 mls/hr IV .Q6H40M [facility] Last Admin: 01/25/18 10:41 Dose: 150 mls/hr NOREPINEPHRINE BIT/0.9 % NACL (Levophed 4 Mg/ 250 Ml Ns Premixed) 4 mg in 250 mls @ 15 mls/hr IV .[id number] PRN; Protocol; 4 MCG/MIN PRN Reason: TITRATE PER MD ORDER Last Titration: 01/25/18 18:00 Dose: 0 mcg/min, 0 mls/hr Dextrose (Dextrose 10% In Water) 500 mls @ 50 mls/hr IV .Q10H [facility] Last Admin: 01/27/18 09:08 Dose: 50 mls/hr Morphine Sulfate (Morphine Glazier Helper 1 Mg/Ml) 30 mls @ 1 mls/hr IV PRN PRN; Protocol ; 1 MG/HR PRN Reason: TITRATE PER MD ORDERS Pantoprazole Sodium (Protonix Inj) 40 mg IVP DAILY [facility] Last Admin: 01/25/18 11:00 Dose: 40 mg - Labs Labs: 01/25/18 09:40 01/25/18 09:40 PT 17.4 SECONDS (9.4-12.5) H 01/24/18 15:15 INR 1.51 (0.93-1.08) H 01/24/18 15:15 APTT 28.8 Seconds (25.1-36.5) 01/24/18 15:15 - Constitutional Appears: Chronically Ill, Other (lethargic) - Head Exam Head Exam: NORMAL INSPECTION - Neck Exam Neck Exam: absent: Meningismus - Respiratory Exam Respiratory Exam: Decreased Breath Sounds - Cardiovascular Exam Cardiovascular Exam: +S1, +S2 - GI/Abdominal Exam GI & Abdominal Exam: Soft. absent: Tenderness Assessment and Plan - Assessment and Plan (Free Text) Assessment: Assessment Shock from gram negative bacilli bacteremia perforated viscus, necrotic small bowels and severe sepsis with acute renal failure S/P exploratory laparotomy, removal of necrotic small bowel and peristromal closure history of left sided healthcare-associated pneumonia history of left upper lobe cavitary lesion, probably malignancy HTN colon CA S/P surgery, colostomy, chemotherapy and in remission atrial fibrillation history of cataracts and glaucoma history of herpes zoster dementia Plan was on Zyvox and Merrem but patient is on comfort care overall prognosis is grave
--- NOTE | 2018-01-29 08:48 | CP.PCM.PN ---
Subjective - Date & Time of Evaluation Date of Evaluation: 01/29/18 Time of Evaluation: 08:46 - Subjective Subjective: Surgery Pt s&e w attending. Pt is on morphine drip. COmfort care. Lethargic. No events overnight. Objective - Vital Signs/Intake and Output Vital Signs (last 24 hours): Temp Pulse Resp BP Pulse Ox 97.8 F 92 H 16 66/33 L 86 L 01/28/18 14:00 01/28/18 22:30 01/28/18 22:30 01/28/18 22:30 01/28/18 22:30 Intake and Output: 01/29/18 01/29/18 06:59 18:59 Intake Total 0 Output Total 200 Balance -200 - Medications Medications: Current Medications Acetaminophen (Tylenol 650 Mg Supp) 650 mg RC Q4H PRN PRN Reason: Fever >100.4 F Hydrocortisone Sodium Succinate (Solu-Cortef) 50 mg IVP Q6 [facility] Last Admin: 01/25/18 18:39 Dose: Not Given Meropenem 500 mg/ Sodium (Chloride) 50 mls @ 100 mls/hr IVPB Q12H [facility] PRN Reason: Protocol Stop: 02/01/18 06:01 Last Admin: 01/25/18 10:25 Dose: 100 mls/hr Fentanyl Citrate (Fentanyl Citrate/Sodium Chloride 1 Mg/100 Ml) 1,000 mcg in 100 mls @ 2 mls/hr IV .Q24H PRN; Protocol; 20 MCG/HR PRN Reason: TITRATE PER MD ORDER Propofol (Diprivan) 1,000 mg in 100 mls @ 1.565 mls/hr IV .Q24H PRN; Protocol; 5 MCG/KG/MIN PRN Reason: TITRATE PER MD ORDER Last Titration: 01/25/18 13:17 Dose: 10 mcg/kg/min, 3.13 mls/hr Linezolid (Zyvox 600mg/300ml D5w) 600 mg in 300 mls @ 200 mls/hr IVPB Q12 [facility] PRN Reason: Protocol Stop: 02/01/18 10:01 Last Admin: 01/25/18 11:45 Dose: 200 mls/hr Sodium Chloride (Sodium Chloride 0.9%) 1,000 mls @ 150 mls/hr IV .Q6H40M [facility] Last Admin: 01/25/18 10:41 Dose: 150 mls/hr NOREPINEPHRINE BIT/0.9 % NACL (Levophed 4 Mg/ 250 Ml Ns Premixed) 4 mg in 250 mls @ 15 mls/hr IV .[id number] PRN; Protocol; 4 MCG/MIN PRN Reason: TITRATE PER MD ORDER Last Titration: 01/25/18 18:00 Dose: 0 mcg/min, 0 mls/hr Morphine Sulfate (Morphine Senior Hr Generalist 1 Mg/Ml) 30 mls @ 1 mls/hr IV PRN PRN; Protocol ; 1 MG/HR PRN Reason: TITRATE PER MD ORDERS Last Admin: 01/28/18 10:48 Dose: 1 mg/hr, 1 mls/hr Lorazepam (Ativan) 0.5 mg IVP Q8H PRN; Protocol PRN Reason: Anxiety Pantoprazole Sodium (Protonix Inj) 40 mg IVP DAILY [facility] Last Admin: 01/25/18 11:00 Dose: 40 mg Scopolamine (Transderm-Scop) 1 patch TD Q3D [facility] Last Admin: 01/28/18 15:19 Dose: 1 patch - Labs Labs: 01/25/18 09:40 01/25/18 09:40 PT 17.4 SECONDS (9.4-12.5) H 01/24/18 15:15 INR 1.51 (0.93-1.08) H 01/24/18 15:15 APTT 28.8 Seconds (25.1-36.5) 01/24/18 15:15 - Constitutional Appears: Cachectic, Chronically Ill - Head Exam Head Exam: ATRAUMATIC, NORMAL INSPECTION, NORMOCEPHALIC - ENT Exam Additional comments: NGT in place - Neck Exam Neck Exam: Normal Inspection - Cardiovascular Exam Cardiovascular Exam: REGULAR RHYTHM - GI/Abdominal Exam GI & Abdominal Exam: Soft. absent: Distended, Firm, Guarding, Rigid, Tenderness - Exam Additional comments: Kaur in place - Extremities Exam Extremities Exam: Normal Inspection - Back Exam Back Exam: NORMAL INSPECTION - Neurological Exam Neurological Exam: absent: Alert, Awake, Normal Gait, Oriented x3 - Skin Skin Exam: Dry, Warm. absent: Erythema Assessment and Plan - Assessment and Plan (Free Text) Assessment: POD 4 s/p ex lap bowel resection -COmfort care -MOrphine drip LUPE Varela
--- NOTE | 2018-01-29 08:52 | CON ---
DATE: 01/25/2018 MEDICAL CONSULTATION HISTORY OF PRESENT ILLNESS: The patient is an 82-year-old female who is admitted to [facility] with acute abdominal obstruction. I have known the patient for several years, seeing her in health schools. She has a history of colon carcinoma with a stoma. She was repeatedly offered to have her colostomy reversed; however, the patient refused. As the patient's dementia worsened while living at home, she moved to [facility]. There, she recently began showing signs of intestinal obstruction with coffee-ground emesis. She was brought to [facility], was admitted to Dr. Varela's service and we are called for medical consultation. PAST MEDICAL HISTORY: The patient has a past medical history for colon carcinoma as mentioned above, Alzheimer's dementia, mild hypertension, she is known to be in chronic atrial fibrillation. She had a bout of shingles in the distant past. SOCIAL HISTORY: She never smoked, is a nonalcoholic drinker. She is a . ALLERGIES: SHE HAS NO KNOWN MEDICAL ALLERGIES. MEDICATIONS: She apparently was not taking any medications. PHYSICAL EXAMINATION: GENERAL: When seen, the patient is in the Intensive Care Unit. She is intubated. Code sepsis was called when she was in the Emergency Room. She is status post resection of bowel and ostomy reversal. The patient is sedated. LUNGS: Her lungs are clear anteriorly. HEART: Regular. ABDOMEN: Soft. Bowel sounds are quiet. EXTREMITIES: Free of cyanosis, clubbing or edema. LABORATORY DATA: Shows a white blood cell count to be 1.5, hemoglobin is 11.6, hematocrit is 34.6. Sodium is 137, potassium is 3.8, blood urea nitrogen is 50 and creatinine is 2.0. Her blood pressure is 80/43, heart rate is 138. Her calcium is 6.2. She was found to have B positive type blood. ASSESSMENT AND PLAN: As per the patient's wishes and her family wishes, she is a do not resuscitate/do not intubate status. We are simply keeping the patient comfortable for now, offering comfort measures, IV fluids. Hopefully, the patient will be extubated soon and we will continue to follow the patient with you. Thank you very much for this consultation. Liu Lazaro MD
[2018-01-29 09:09] VITALS: RESP 18
--- NOTE | 2018-01-29 16:40 | CP.PCM.PRO ---
Pronouncement of Note - Clinical Findings Physical Exam: No Response Verbal/Painful Stimuli, Absent Peripheral Pulses{ Carotid & Femoral}, Absent Heart & Breath Sounds, No Pupillary Light Reflex, No Corneal Reflex, Pupils Fixed & Dilated, Absence of Vital Signs - Pronouncement Time Time of Pronouncement of : 16:36 - Notifications Pronouncement Notifications: Family Notified (Mason Torres [phone]), Atending Notified ([id number]) Mechanical Assembler Notified: No - Autopsy Autopsy Requested: No - [place] [id number]
[2018-01-29 18:15] VITALS: BP 76/66; PULSE 86; TEMP 97.5; O2SAT 94
--- NOTE | 2018-01-29 23:51 | PN ---
DATE: 01/29/2018 SUBJECTIVE: The patient is in bed, in no acute distress, nontoxic. PHYSICAL EXAMINATION: VITAL SIGNS: Temperature is 97, blood pressure is 76/60, respiratory rate of 18. HEENT: Examination of HEENT is unremarkable. NECK: Supple. LUNGS: Have decreased breath sounds. HEART: Normal S1, S2. ABDOMEN: Soft. LABORATORY DATA: Laboratory examination is noted. Review of orders reveals the patient's antibiotics are on hold. ASSESSMENT AND PLAN: An 82-year-old female who was seen early this morning in room 565, bed 1. Comfort care only, off of antibiotics. All antibiotics were on hold. The patient with shock and gram-negative bacillus bacteremia with perforated viscus. Overall prognosis is quite poor, even in phase of antibiotics. The patient had been on meropenem. The patient was seen early this morning and appeared terminal. Obed Tapia MD
--- NOTE | 2018-02-03 20:46 | OP ---
PROCEDURE DATE: 01/25/2018 SURGEON: Hoang Varela, MEDICAL ILLUSTRATOR: Dr. Washington. ESTIMATED BLOOD LOSS: Minimal. DESCRIPTION OF PROCEDURE: In the operating room, the patient was identified by name, name of procedure, laterality, my vasile, her consent, her wrist band and number. I see the woman initially in the emergency room around 6:00 with a clear abdominal emergency, seen on CAT scan operation. During the night, the power of commonwealth attorney apparently changed his mind and allowed further treatment. In the operating room, the patient was identified as above and the operation proceeded. A generous midline incision was made through the skin and subcutaneous tissues and clear area was found. In the right lower quadrant, there was benign appearing adhesions in the distal ileum with decompressed bowel behind it and proximal massive dilation. There was necrotic bowel and a clear perforation at this adhesion. The patient was unstable, so we elected to do a salvage operation and planned to in about 48 hours. We obviously had bowels resected down to the adhesion removing the perforation. This was done with a TA 60 and the LDS to remove it nicely. Most of the bowel was ischemic. There was no clear bowel. The distal bowel looked beautiful. The cecum was fine. The abdomen was irrigated and dried. The incision was then closed with #1 PDS above and below and tied in the middle with the buried knot deion. The patient taken into the ICU intubated, planning an operation in 48 hours. The operation included laparotomy, small bowel obstruction and damage control. Dry Michael was placed in the peritoneal tissue. Hoang Varela MD
== END 2018-01-29 16:36 | DRG 853 ==
LOC: ED 14:45 → ERH 17:27 → ICU 18:52 → 5RNO 01-27 10:49
PROVIDERS: ADMIT Surgery; ATTEND Surgery
PROC: 0BH17EZ Insertion of Endotracheal Airway into Trachea, Via Natural or Artificial Opening (ICD-10-PCS; 2018-01-25)
PROC: 06HY33Z Insertion of Infusion Device into Lower Vein, Percutaneous Approach (ICD-10-PCS; 2018-01-25)
PROC: 0DT80ZZ Resection of Small Intestine, Open Approach (ICD-10-PCS; principal; 2018-01-25 05:17)
PROC: 5A1935Z Respiratory Ventilation, Less than 24 Consecutive Hours (ICD-10-PCS; 2018-01-25 05:17)
DX: A41.9 Sepsis, unspecified organism (principal); K63.1 Perforation of intestine (nontraumatic); K55.029 Acute infarction of small intestine, extent unspecified; R65.21 Severe sepsis with septic shock; K56.51 Intestinal adhesions [bands], with partial obstruction; N17.9 Acute kidney failure, unspecified; R64 Cachexia; Z68.1 Body mass index [BMI] 19.9 or less, adult; I08.3 Combined rheumatic disorders of mitral, aortic and tricuspid valves; I48.0 Paroxysmal atrial fibrillation; E86.0 Dehydration; G30.9 Alzheimer's disease, unspecified; F02.80 Dementia in other diseases classified elsewhere, unspecified severity, without behavioral disturbance, psychotic disturbance, mood disturbance, and anxiety; I10 Essential (primary) hypertension; Z66 Do not resuscitate; K43.5 Parastomal hernia without obstruction or gangrene; Z51.5 Encounter for palliative care; H40.9 Unspecified glaucoma; H26.9 Unspecified cataract; I48.2 Chronic atrial fibrillation; Z87.01 Personal history of pneumonia (recurrent); Z85.038 Personal history of other malignant neoplasm of large intestine; Z79.01 Long term (current) use of anticoagulants